=== PATIENT | female | born 1955 | race Caucasian/White ===

== ENCOUNTER 2017-08-04 07:24 | Outpatient (CLI) | payer BC ==
--- NOTE | 2017-08-04 08:08 | RAD ---
LUMBAR SPINE 3 VIEWS: HISTORY: Low back pain radiating to the right leg. FINDINGS: There are degenerative changes in the lumbar spine. No fracture, subluxation, or bony destruction i s identified. IMPRESSION: Lumbar spondylosis. POS: JUAN M
== END 2017-08-04 07:25 | disposition home or self-care (01) ==
LOC: RAD 07:24
PROVIDERS: ATTEND Family Medicine
DX: M47.26 Other spondylosis with radiculopathy, lumbar region (principal)
CPT/HCPCS: 72100

== ENCOUNTER 2017-10-07 07:36 | Outpatient (CLI) | payer BC ==
--- NOTE | 2017-10-07 08:57 | RAD ---
TWO VIEW CHEST: History: COPD. Comparison: 01-21-11 FINDINGS: Mild cardiomegaly with post op sternotomy change. There are linear markings in both mid and lower dariel gs suggesting some chronic parenchymal changes. I cannot exclude superimposed infiltrate, especially on the right, given these new opacities which have occurred since the prior study. Vascular markings within normal range. No evidence of effusion. IMPRESSION: Linear parenchymal markings bilaterally suggesting some chronic stranding and atelectasis, however, a n acute infiltrate cannot be excluded. POS: MIKE
== END 2017-10-07 07:37 | disposition home or self-care (01) ==
LOC: RAD 07:36
PROVIDERS: ATTEND Family Medicine
DX: J44.1 Chronic obstructive pulmonary disease with (acute) exacerbation (principal); J98.11 Atelectasis
CPT/HCPCS: 71020

== ENCOUNTER 2017-11-03 05:51 | Inpatient (IN) | payer BC ==
[2017-11-03] MEDS ORDERED: predniSONE 20 MG TAB ONE (06:19)
[2017-11-03] MEDS ORDERED: Albuterol Sulfate 2.5 mg/0.5 ml Neb ONE ×2 (06:19→06:54)
[2017-11-03] MEDS ORDERED: cefTRIAXone\\ROCEPHIN 1 GM VIAL IM SCH (06:30)
[2017-11-03 07:10] LABS: #Lymphocytes 1.2 thou/uL (1.20-3.40); #Monocytes 1.3 thou/uL (0.11-0.59); #Neutrophils 8.7 thou/uL (1.40-6.50); %Basophils 0.4 % (0.0-1.0); %Eosinophils 0.2 % (0.0-10.0); %Lymphocytes 10.6 % (21.0-51.0); %Monocytes 11.7 % (0.0-10.0); Hematocrit 48.6 % (36.0-47.0); Mean Platelet Volume 8.7 fL (7.4-10.4); Red Blood Cell (RBC) Count 5.19 mill/uL (4.20-5.40); White Blood Cell (WBC) Count 11.2 thou/uL (4.8-10.8)
[2017-11-03] MEDS ORDERED: Dexamethasone 10 MG/ML VIAL ONE (07:23)
[2017-11-03] MEDS ORDERED: Magnesium Sulfate 2 GM/100 ML BAG ONE (07:23)
[2017-11-03 07:27] LABS: Oxyhemoglobin 90.3 % (94.0-97.0); Sodium 140 mmol/L (135-148)
[2017-11-03 07:30] LABS: Lactic Acid - Sepsis 1.8 mmol/L (0.5-2.2)
[2017-11-03 07:35] LABS: Troponin I Less than 0.010 ng/mL (< 0.028)
[2017-11-03 07:38] LABS: ALT (SGPT) 14 U/L (8-55); AST (SGOT) 17 U/L (5-34); Alkaline Phosphatase 84 U/L (40-150); Anion Gap 14 mmol/L (10-20); BUN (Urea Nitrogen) 28 mg/dL (9.8-20.1); Bilirubin, Total 0.4 mg/dL (0.2-1.2); CK (CPK) 83 U/L (29-168); Calc. Creatinine Clearance 0 mL/min (70-130); Calcium 9.3 mg/dL (7.8-10.44); Carbon Dioxide 23 mmol/L (23-31); Chloride 107 mmol/L (98-107); Estimated GFR-MDRD 48; Globulin 2.8 g/dL (2.4-3.5); Lipase 19 U/L (8-78); Protein, Total 6.6 g/dL (6.0-8.3)
[2017-11-03 07:42] LABS: Modified Allen's Test NOT DONE; Vent NO
[2017-11-03 07:43] LABS: Mode 3L NC
[2017-11-03] MEDS ORDERED: Acetaminophen 500 MG TAB ONE (08:05)
[2017-11-03] MEDS ORDERED: Oseltamivir 75 MG CAP PO ONE (08:15)
[2017-11-03] MEDS ORDERED: Azithromycin 500 MG in Sodium Chloride 0.9% 250 ML 250 ML IVPB ONE (08:15)
--- NOTE | 2017-11-03 09:25 | RAD ---
CHEST 1 VIEW: Date: 10/14/17 HISTORY: Cough. COMPARISON: Chest radiograph dated 10/07/17. FINDINGS: Heart size is enlarged. Opacities of the right middle lobe and lingula, similar. No pneumothorax. No large effusion. IMPRESSION: 1. Right middle lobe and lingular linear opacities may reflect scarring. 2. Cardiomegaly. POS: H
[2017-11-03] MEDS ORDERED: FLU VACC QS2017-18 36 mo. & older 0.5 ML SYRINGE IM ONE (10:00)
[2017-11-03] MEDS: Diabetic Tussin 200 MG/10 ML UDCUP PO PRN ×2 (11:42→16:43)
[2017-11-03] MEDS ORDERED: Ondansetron ODT 4 MG TAB PO PRN (13:01)
[2017-11-03] MEDS ORDERED: Mag-Al 1200 mg/1200 mg/30 ML UDCUP PO PRN (13:01)
[2017-11-03] MEDS ORDERED: Calcium Carbonate 500 MG ChewTAB PO PRN (13:01)
[2017-11-03] MEDS ORDERED: Senokot 8.6 MG TAB PO PRN (13:01)
[2017-11-03] MEDS ORDERED: Nitroglycerin 0.4 MG TAB (25 Tab Bottle) PO PRN (13:01)
[2017-11-03] MEDS ORDERED: Acetaminophen 325 MG TAB PO PRN (13:01)
[2017-11-03] MEDS ORDERED: Ondansetron HCl/PF 4 MG/2 ML Vial IVP PRN (13:01)
[2017-11-03] MEDS ORDERED: Chloraseptic Spray 180 ml Bottle PO PRN (13:05)
[2017-11-03] MEDS ORDERED: Loratadine 10 MG TAB PO PRN (13:05)
[2017-11-03] MEDS ORDERED: Cepastat Lozenges 1 LOZ PO PRN (13:05)
[2017-11-03] MEDS ORDERED: hydrALAZINE 20 MG/ML VIAL SLOW IVP PRN (13:05)
[2017-11-03] MEDS ORDERED: cloNIDine 0.1 MG TAB PO PRN (13:05)
[2017-11-03] MEDS ORDERED: cefTRIAXone\\ROCEPHIN 1 GM in Sodium Chloride 0.9% 100 ML IVPB SCH (13:15)
[2017-11-03] MEDS: Sodium Chloride 0.9% 1,000 ML IV SCH (13:37)
[2017-11-03] MEDS: HYDROcodone/Acetaminophen 7.5/325 mg Tablet PO PRN ×2 (13:55→20:10)
--- NOTE | 2017-11-03 13:55 | HP ---
DATE OF ADMISSION: 11/03/2017 PRIMARY CARE PHYSICIAN: Dr. Benson. CHIEF COMPLAINT: Shortness of breath of 3 days duration. HISTORY OF PRESENT ILLNESS: Patient is a 61-year-old female with COPD, presented to the emergency ro om with worsening shortness of breath along with fever over the last 2-3 days. She also had some cou gh, which was productive of small amount of thick phlegm. She also had intermittent fever with chill s. Her coworker recently had influenza. Due to her worsening symptoms, she presented to the emergen cy room. Her last COPD exacerbation was approximately a month ago that was managed as outpatient by her PCP. She has a nebulizer and uses it on an as needed basis. She is a former smoker. In the emergency room, her initial vital signs showed temperature of 99.7 with O2 saturation 87% on r oom air. Heart rate was 119 with blood pressure of 119/65. After O2 supplementation, her O2 saturat ion improved to 95%. She was positive for influenza A. She received Tamiflu with Tylenol, 10 mg Dec adron, magnesium, DuoNebs and azithromycin. She refused ABG. Her lowest O2 saturation was 84% on ro om air. PAST MEDICAL HISTORY: 1. COPD. 2. History of pericarditis. 3. History of ASD repair. 4. Chronic low back pain. 5. Insomnia. 6. History of alcoholism in the past, quit drinking in 1992. 7. Former smoker. PAST SURGICAL HISTORY: 1. Cholecystectomy. 2. Abdominal hysterectomy. 3. Appendectomy. 4. Bladder suspension. 5. Eye surgery. 6. ASD repair. ALLERGIES: Patient is allergic to ERYTHROMYCIN that causes itching, SULFA DRUGS that causes itching, CONTRAST MATERIAL that causes questionable seizures, DOXYCYCLINE, reaction unknown and LEVAQUIN that causes nausea and myalgias. FAMILY HISTORY: Father of lung cancer. SOCIAL HISTORY: Patient is a former smoker, quit in 2016. She is and has 2 kids. No curren t use of alcohol or drug use. REVIEW OF SYSTEMS: The following complete review of systems was negative, unless otherwise mentioned in the HPI or below: CONSTITUTIONAL: Weight loss or gain, ability to conduct usual activities. SKIN: Rash, itching. EYES: Double vision, pain. ENT/MOUTH: Nose bleeding, neck stiffness, pain, tenderness. CARDIOVASCULAR: Palpitations, dyspnea on exertion, orthopnea. RESPIRATORY: Shortness of breath, wheezing, cough, hemoptysis, fever or night sweats. GASTROINTESTINAL: Poor appetite, abdominal pain, heartburn, nausea, vomiting, constipation, or diarr hea. GENITOURINARY: Urgency, frequency, dysuria, nocturia. MUSCULOSKELETAL: Pain, swelling. NEUROLOGIC/PSYCHIATRIC: Anxiety, depression. ALLERGY/IMMUNOLOGIC: Skin rash, bleeding tendency. Weight loss or gain, ability to conduct, orthopnea. CURRENT HOME MEDICATIONS: Prozac 10 mg daily, nebulizer treatment as needed, Lasix 40 mg daily, Topr ol-XL 25 mg daily, Dulera as needed. PHYSICAL EXAMINATION: VITAL SIGNS: As discussed above. GENERAL: A 61-year-old female in mild to moderate respiratory distress, able to complete short phras es. O2 saturation at this time is 96% on 3 liter nasal cannula. HEENT: Head atraumatic, normocephalic. Sclerae are anicteric. Dry mucous membranes. NECK: Supple, no JVD appreciated. No carotid bruit. LUNGS: Showed expiratory wheezing with coarse breath sounds bilaterally. There was scattered rales at bases. Lungs are symmetrical. Trachea midline. HEART: S1, S2 present. Regular rate and rhythm, 2/6 systolic murmur over the mitral area. ABDOMEN: Soft, nontender, bowel sounds present. EXTREMITIES: No edema or calf tenderness. NEUROLOGIC: Grossly nonfocal, moves all 4 extremities. PSYCHIATRY: Alert, awake, oriented x3. SKIN: Warm and dry. LYMPH NODES: No palpable lymph nodes in the neck. PERIPHERAL VASCULAR: Radial pulses palpable bilaterally. MUSCULOSKELETAL: No joint swelling or tenderness. LABORATORY AND X-RAY FINDINGS: 1. ABGs which patient later agreed showed pH of 7.43 with pCO2 33.4, pO2 56.5 with bicarbonate 21.7 on 3 liter nasal cannula. 2. CBC showed WBC 11.2 with hemoglobin 16.1, hematocrit 48.6 and platelet 176. 3. Chemistries showed sodium 139, potassium 4.5, chloride 107, bicarbonate 23, BUN 28, creatinine 1. 1. 4. Troponins were negative. 5. Influenza A was positive. 6. Chest x-ray by my review showed right middle lobe and lingula linear opacities, questionable scar ring versus infiltrate. There was cardiomegaly. EKG by my review showed sinus tachycardia with PVCs and right axis deviation. IMPRESSION: 1. Acute hypoxic respiratory failure secondary to influenza A with suspected influenzae A pneumonia. 2. Chronic obstructive pulmonary disease with chronic obstructive pulmonary disease exacerbation. 3. Obesity with a BMI 30. 4. Chronic kidney disease stage 3 with slight worsening. 5. Dehydration. 6. Former smoker. 7. Chronic low back pain. 8. Hypertension. 9. Depression without any suicidal ideation. PLAN: The patient will be monitored on the medical floor. We will continue nebulizer treatment ever y 4 hourly. Continue Tamiflu. We will continue azithromycin and ceftriaxone that was started in the Emergency Room for possible pneumonia. We will add IV steroids due to chronic obstructive pulmonary disease exacerbation. Repeat labs in a.m. Plan of care was discussed with the patient in detail. She stated understanding. We will resume last ected home medications.
[2017-11-03] MEDS: cefTRIAXone\\ROCEPHIN 1 GM, Syringe 0.4 ML in Sterile Water 9.6 ML SLOW IVP SCH (14:56)
[2017-11-03] MEDS ORDERED: Mometasone/Formoterol 120 PUFF INHALER INH SCH (18:30)
[2017-11-03] MEDS: guaiFENesin ER 600 MG TAB PO SCH (20:10)
[2017-11-03] MEDS: Oseltamivir 75 MG CAP PO SCH (20:10)
[2017-11-03] MEDS: Famotidine 20 MG TAB PO SCH (20:10)
[2017-11-03] MEDS: Docusate 100 MG CAP PO SCH (20:16)
[2017-11-03] MEDS ORDERED: guaiFENesin ER 600 MG TAB PO SCH (21:00)
[2017-11-03] MEDS: Mometasone/Formoterol 120 PUFF INHALER INH SCH (22:04)
[2017-11-04 06:05] LABS: #Lymphocytes 0.6 thou/uL (1.20-3.40); #Monocytes 0.5 thou/uL (0.11-0.59); #Neutrophils 12.4 thou/uL (1.40-6.50); %Basophils 0.1 % (0.0-1.0); %Eosinophils 0.1 % (0.0-10.0); %Lymphocytes 4.1 % (21.0-51.0); %Monocytes 3.8 % (0.0-10.0); Hematocrit 46.1 % (36.0-47.0); Mean Platelet Volume 9.3 fL (7.4-10.4); Red Blood Cell (RBC) Count 4.87 mill/uL (4.20-5.40); White Blood Cell (WBC) Count 13.5 thou/uL (4.8-10.8)
[2017-11-04] MEDS: HYDROcodone/Acetaminophen 7.5/325 mg Tablet PO PRN ×2 (06:11→11:00)
[2017-11-04] MEDS: Sodium Chloride 0.9% 1,000 ML IV SCH (06:14)
[2017-11-04 06:43] LABS: Anion Gap 11 mmol/L (10-20); BUN (Urea Nitrogen) 16 mg/dL (9.8-20.1); BUN/Creatinine Ratio 19.75; Calc. Creatinine Clearance 89 mL/min (70-130); Calcium 8.6 mg/dL (7.8-10.44); Carbon Dioxide 19 mmol/L (23-31); Chloride 112 mmol/L (98-107); Estimated GFR-MDRD 71; Magnesium 2.8 mg/dL (1.6-2.6)
[2017-11-04 06:44] LABS: Phosphorus 1.9 mg/dL (2.3-4.7)
[2017-11-04 08:03] VITALS: TEMP 98.7
[2017-11-04] MEDS ORDERED: Azithromycin 250 MG TAB PO SCH (09:00)
[2017-11-04] MEDS ORDERED: Aspirin 325 mg Enteric Coated Tablet PO SCH (09:00)
[2017-11-04] MEDS ORDERED: FLUoxetine HCl 10 MG CAP PO SCH (09:00)
[2017-11-04] MEDS ORDERED: Saccharomyces boulardii 250 MG CAP PO SCH (09:00)
[2017-11-04] MEDS ORDERED: Enoxaparin Sodium 40 MG/0.4 ML SYRINGE SC SCH (09:00)
[2017-11-04] MEDS ORDERED: Multivit, Therapeutic 1 TAB PO SCH (09:00)
[2017-11-04] MEDS: K-Phos Neutral 250 MG TAB PO SCH ×2 (09:05→12:58)
[2017-11-04] MEDS: Famotidine 20 MG TAB PO SCH (09:05)
[2017-11-04] MEDS: guaiFENesin ER 600 MG TAB PO SCH (09:06)
[2017-11-04] MEDS: Oseltamivir 75 MG CAP PO SCH (09:06)
[2017-11-04] MEDS: Docusate 100 MG CAP PO SCH (09:06)
[2017-11-04] MEDS: Mometasone/Formoterol 120 PUFF INHALER INH SCH (09:12)
[2017-11-04 11:11] VITALS: BP 126/62
--- NOTE | 2017-11-04 13:38 | EKG ---
Test Reason : Blood Pressure : / mmHG Vent. Rate : 113 BPM Atrial Rate : 113 BPM P-R Int : 158 ms QRS Dur : 074 ms QT Int : 328 ms P-R-T Axes : 053 096 021 degrees QTc Int : 449 ms Sinus tachycardia with occasional Premature ventricular complexes Possible Left atrial enlargement Rightward axis Borderline ECG Confirmed by ERICA CURRAN, ROSA ([id number]), scientific editor CORONA ANAYA ([id number]) on 11/04/2017 1:37:51 PM Referred By: Confirmed By:ROSA MALDONADO MD
[2017-11-04] MEDS: cefTRIAXone\\ROCEPHIN 1 GM, Syringe 0.4 ML in Sterile Water 9.6 ML SLOW IVP SCH (14:48)
--- NOTE | 2017-11-04 22:26 | DIS ---
DISCHARGE DATE: 11/04/2017 DISCHARGE DISPOSITION: Home. FOLLOWUP: With primary care physician, Dr. Benson as scheduled. ALLERGIES: Patient is allergic to DOXYCYCLINE, IODINE, LEVAQUIN, and SULFA. Patient was seen on the day of discharge, denies any new complaints. Overall, feels better. She is currently on room air. BRIEF HOSPITAL COURSE: Patient is a 61-year-old female with COPD, presented to the emergency room wi th worsening shortness of breath along with fever of 2 to 3 days' duration. Her workup was consisten t with influenza A with suspected influenzae A pneumonia. She was started on Tamiflu with azithromyc in and nebulizer treatment. Low dose steroid was also added for COPD exacerbation. She has shown go od improvement overnight. Blood cultures have been negative. She is requesting to be discharged. S he was advised to return to the emergency room if she develops any new symptoms. FINAL DIAGNOSES: 1. Acute hypoxic respiratory failure secondary to influenza A with suspected influenzae A pneumonia. 2. Chronic obstructive pulmonary disease with chronic obstructive pulmonary disease exacerbation. 3. Obesity with a BMI 30. 4. Chronic kidney disease stage 3 with slight worsening. Creatinine on discharge is 0.8, on admissi on was 1.1. Former smoker. 5. Chronic low back pain. 6. Hypertension. 7. Depression without any suicidal ideation. LABORATORY FINDINGS: WBC on the day of discharge is 13.5, on admission was 11.2. Plan of care was discussed with the patient in detail. She stated understanding.
== END 2017-11-04 15:13 | disposition home or self-care (01) | DRG 193 ==
LOC: ERS 05:51 → T4-B 08:16
PROVIDERS: ADMIT Internal Medicine; ATTEND Internal Medicine
DX: J10.00 Influenza due to other identified influenza virus with unspecified type of pneumonia (principal); J96.01 Acute respiratory failure with hypoxia; J44.0 Chronic obstructive pulmonary disease with (acute) lower respiratory infection; J44.1 Chronic obstructive pulmonary disease with (acute) exacerbation; N18.3 Chronic kidney disease, stage 3 (moderate); Z88.1 Allergy status to other antibiotic agents; Z88.2 Allergy status to sulfonamides; Z91.048 Other nonmedicinal substance allergy status; E66.9 Obesity, unspecified; Z68.30 Body mass index [BMI] 30.0-30.9, adult; I12.9 Hypertensive chronic kidney disease with stage 1 through stage 4 chronic kidney disease, or unspecified chronic kidney disease; G89.29 Other chronic pain; M54.5 Low back pain; F32.9 Major depressive disorder, single episode, unspecified; Z87.891 Personal history of nicotine dependence; F10.21 Alcohol dependence, in remission; Z90.49 Acquired absence of other specified parts of digestive tract; Z90.710 Acquired absence of both cervix and uterus; Z91.041 Radiographic dye allergy status; E86.0 Dehydration
CPT/HCPCS: 36415; 71010; 80053; 80069; 82550; 82553; 82805; 83605; 83690; 83735; 83880; 84484; 85025; 87040; 93005; 94640; 94760; 96365; 96375; A4216; J0456; J0696; J1100; J1650; J2920; J3475; J7050; J7506; J7611; J7620

== ENCOUNTER 2018-01-24 14:13 | Emergency (ER) | payer BC ==
[2018-01-24 14:45] LABS: #Eosinphils 0.1 thou/uL (0.0-0.7); #Lymphocytes 1.4 thou/uL (1.20-3.40); #Neutrophils 8.2 thou/uL (1.40-6.50); %Basophils 0.2 % (0.0-1.0); %Lymphocytes 13.1 % (21.0-51.0); %Monocytes 9.6 % (0.0-10.0); %Neutrophils 76.1 % (42.0-75.0); Hemoglobin 16.6 g/dL (12.0-16.0); Mean Corpuscular HGB CONC 33.4 g/dL (32.0-36.0); Mean Corpuscular Hemoglobin 30.1 pg (27.0-31.0); Mean Corpuscular Volume 90.2 fl (81.0-99.0); Mean Platelet Volume 8.4 fL (7.4-10.4); Platelet Count 258 thou/uL (130-400); RBC Distribution Width 12.2 % (11.5-14.5); Red Blood Cell (RBC) Count 5.52 mill/uL (4.20-5.40); White Blood Cell (WBC) Count 10.7 thou/uL (4.8-10.8)
[2018-01-24 15:06] LABS: ALT (SGPT) 12 U/L (8-55); AST (SGOT) 13 U/L (5-34); Alkaline Phosphatase 91 U/L (40-150); Anion Gap 12 mmol/L (10-20); BUN (Urea Nitrogen) 13 mg/dL (9.8-20.1); Bilirubin, Total 0.5 mg/dL (0.2-1.2); Calc. Creatinine Clearance 0 mL/min (70-130); Calcium 10.2 mg/dL (7.8-10.44); Carbon Dioxide 23 mmol/L (23-31); Chloride 107 mmol/L (98-107); Estimated GFR-MDRD 66; Globulin 3.3 g/dL (2.4-3.5); Glucose 117 mg/dL (80-115); Potassium 4.1 mmol/L (3.5-5.1); Protein, Total 7.3 g/dL (6.0-8.3); Sodium 138 mmol/L (136-145)
[2018-01-24 15:31] LABS: Bilirubin Negative (Negative); Blood, Urine Negative (Negative); Clarity CLOUDY (Clear); Glucose, Urine (Dipstick) Negative (Negative); Leukocyte Large (Negative); Nitrite Negative (Negative); Protein, Urine (Dipstick) Negative (Neg-Trace); Specific Gravity, Urine 1.019 (1.002-1.036)
[2018-01-24 15:33] LABS: Bacteria/HPF 4+ HPF (None Seen); Hyaline Casts/LPF 4-6 HYALINE CAST LPF (0-3 Hyaline); Squamous Epithelial 0-3 HPF (0-3)
[2018-01-24] MEDS ORDERED: Albuterol Sulfate 2.5 mg/3 ml Neb ONE ×2 (15:51→17:14)
--- NOTE | 2018-01-24 17:01 | RAD ---
CHEST ONE VIEW: 01/24/18 HISTORY: 62-year-old female with history of cough and congestion. Postop midline sternotomy. Cardiomegaly. Bilateral horizontal linear and parenchymal changes in the p erihilar regions which have more of a chronic appearance and appears stable from the prior 11/03/17 s tudy. No confluent pneumonia or overt edema. IMPRESSION: Stable cardiomegaly and horizontal linear and parenchymal changes in the mid lung zone and perihilar regions. No significant new process. POS: JUAN M
== END 2018-01-24 17:32 | disposition home or self-care (01) ==
LOC: ERS 14:13
DX: J40 Bronchitis, not specified as acute or chronic (principal); N39.0 Urinary tract infection, site not specified; J44.9 Chronic obstructive pulmonary disease, unspecified; Z87.891 Personal history of nicotine dependence; Z79.899 Other long term (current) drug therapy
CPT/HCPCS: 36415; 71045; 80053; 81003; 81015; 83605; 85025; 87040; 94640; 96361; 96374; J0696; J7611; J7620

== ENCOUNTER 2018-04-23 19:31 | Inpatient (IN) | payer BC ==
[2018-04-23 20:02] LABS: #Eosinphils 0.1 thou/uL (0.0-0.7); #Lymphocytes 0.9 thou/uL (1.20-3.40); #Monocytes 1.1 thou/uL (0.11-0.59); #Neutrophils 7.8 thou/uL (1.40-6.50); %Basophils 0.3 % (0.0-1.0); %Eosinophils 0.8 % (0.0-10.0); %Lymphocytes 9.3 % (21.0-51.0); %Monocytes 10.7 % (0.0-10.0); %Neutrophils 78.9 % (42.0-75.0); Hemoglobin 16.8 g/dL (12.0-16.0); Mean Corpuscular HGB CONC 34.3 g/dL (32.0-36.0); Mean Corpuscular Hemoglobin 29.9 pg (27.0-31.0); Mean Corpuscular Volume 87.1 fl (81.0-99.0); Mean Platelet Volume 8.5 fL (7.4-10.4); Platelet Count 195 thou/uL (130-400); RBC Distribution Width 12.9 % (11.5-14.5); Red Blood Cell (RBC) Count 5.63 mill/uL (4.20-5.40); White Blood Cell (WBC) Count 9.8 thou/uL (4.8-10.8)
--- NOTE | 2018-04-23 20:21 | RAD ---
PORTABLE CHEST: 04/23/18 INDICATION: Shortness of breath and fever. COMPARISON: 01/24/18. Cardiomegaly with postop sternotomy change. There is vascular congestion. Hazy infiltrate or edema in the left mid lung is more prominent today. No significant effusion. Hilar regions are prominent. IMPRESSION: Cardiomegaly with vascular congestion. Linear atelectasis and hazy infiltrate and/or edema in the lef t mid lung is more prominent today. POS: [facility]
[2018-04-23 20:22] LABS: ALT (SGPT) 12 U/L (8-55); AST (SGOT) 16 U/L (5-34); Alkaline Phosphatase 76 U/L (40-150); Anion Gap 16 mmol/L (10-20); BUN (Urea Nitrogen) 10 mg/dL (9.8-20.1); Bilirubin, Total 0.4 mg/dL (0.2-1.2); CK (CPK) 158 U/L (29-168); Calc. Creatinine Clearance 0 mL/min (70-130); Calcium 9.8 mg/dL (7.8-10.44); Carbon Dioxide 21 mmol/L (23-31); Chloride 105 mmol/L (98-107); Estimated GFR-MDRD 55; Globulin 3.2 g/dL (2.4-3.5); Glucose 113 mg/dL (80-115); Potassium 4.2 mmol/L (3.5-5.1); Protein, Total 7.2 g/dL (6.0-8.3); Sodium 138 mmol/L (136-145)
[2018-04-23 20:26] LABS: CKMB 1.4 ng/mL (0-6.6); Troponin I Less than 0.010 ng/mL (< 0.028)
[2018-04-23 20:46] LABS: Bilirubin Negative (Negative); Blood, Urine Trace (Negative); Clarity CLEAR (Clear); Glucose, Urine (Dipstick) Negative (Negative); Leukocyte Negative (Negative); Nitrite Negative (Negative); Protein, Urine (Dipstick) 30 mg/dL (Neg-Trace); Specific Gravity, Urine 1.016 (1.002-1.036)
[2018-04-23 20:48] LABS: Bacteria/HPF None Seen HPF (None Seen); Hyaline Casts/LPF 0-3 HYALINE CAST LPF (0-3 Hyaline); Pathc Cast-AUWi Flag 0.72 (0-2.49); Squamous Epithelial 0-3 HPF (0-3); WBC/HPF 0-3 HPF (0-3)
[2018-04-23] MEDS ORDERED: Acetaminophen 500 MG TAB ONE (20:56)
[2018-04-23] MEDS ORDERED: cefTRIAXone\\ROCEPHIN 2 GM VIAL ONE (21:52)
[2018-04-23] MEDS ORDERED: Azithromycin 500 MG VIAL ONE (21:52)
[2018-04-23] MEDS ORDERED: methylPREDNISolone Sod Succ/PF 125 MG/2 ML VIAL ONE (22:35)
[2018-04-23] MEDS ORDERED: Water For Inject, Bacteriostat 30 ML ONE (22:36)
[2018-04-23 23:44] LABS: Troponin I Less than 0.010 ng/mL (< 0.028)
[2018-04-23] MEDS ORDERED: Acetaminophen 325 MG TAB PO PRN (23:48)
[2018-04-23] MEDS ORDERED: Sodium Chloride 0.9% 1,000 ML IV SCH (23:48)
[2018-04-23] MEDS ORDERED: Ondansetron ODT 4 MG TAB SL PRN (23:48)
[2018-04-23] MEDS ORDERED: Ondansetron HCl/PF 4 MG/2 ML Vial IVP PRN (23:48)
[2018-04-23] MEDS ORDERED: Albuterol Sulfate 2.5 mg/3 ml Neb NEB PRN (23:49)
[2018-04-24 00:09] VITALS: BMI 29.0
[2018-04-24] MEDS ORDERED: Bisacodyl 5 MG TAB PO PRN (01:30)
[2018-04-24] MEDS ORDERED: Acetaminophen 325 MG TAB PO PRN (01:30)
[2018-04-24] MEDS ORDERED: Melatonin 3 MG TAB PO PRN (01:44)
[2018-04-24] MEDS ORDERED: Melatonin 3 MG TAB PO SCH (01:45)
[2018-04-24 01:50] LABS: #Lymphocytes 0.3 thou/uL (1.20-3.40); #Monocytes 0.3 thou/uL (0.11-0.59); #Neutrophils 8.6 thou/uL (1.40-6.50); %Basophils 0.4 % (0.0-1.0); %Eosinophils 0.1 % (0.0-10.0); %Lymphocytes 2.9 % (21.0-51.0); %Monocytes 3.1 % (0.0-10.0); %Neutrophils 93.5 % (42.0-75.0); Hemoglobin 16.1 g/dL (12.0-16.0); Mean Corpuscular HGB CONC 34.2 g/dL (32.0-36.0); Mean Corpuscular Hemoglobin 29.8 pg (27.0-31.0); Mean Corpuscular Volume 87.1 fl (81.0-99.0); Mean Platelet Volume 8.2 fL (7.4-10.4); Platelet Count 180 thou/uL (130-400); RBC Distribution Width 12.9 % (11.5-14.5); Red Blood Cell (RBC) Count 5.41 mill/uL (4.20-5.40); White Blood Cell (WBC) Count 9.2 thou/uL (4.8-10.8)
[2018-04-24] MEDS: Sodium Chloride 0.9% 1,000 ML IV SCH ×2 (01:52→16:16)
--- NOTE | 2018-04-24 02:07 | HP ---
PRIMARY CARE PROVIDER: Rae Benson M.D. CHIEF COMPLAINT: Shortness of breath. HISTORY OF PRESENT ILLNESS: Ms. Mcpherson is a pleasant 62-year-old lady who was seen at [facility] on 04/24/2018. Three days ago, she developed shortness of breath with exertion, cough that is productive of clear to white sputum and fevers. She reports T-max of 102 degrees Fahrenheit at home. She denies any chest pain. She denies any nausea or vomiting. She saw her primary care provider and was started on cipr ofloxacin. She reports that she did not improve after 2 days of treatment with ciprofloxacin. She w as subsequently started on levofloxacin, but she did not take levofloxacin because it feels like her skin is crawling. She also uses DuoNebs at home with slight relief, not complete relief for which dhruv usually gets with DuoNebs. She came to the emergency room because of ongoing symptoms. She also r eports wheezing. REVIEW OF SYSTEMS: All other systems reviewed and found to be negative. PAST MEDICAL HISTORY: COPD, pericarditis, ASD repair, chronic low back pain, insomnia, alcoholism in the past, tobacco use in the past. PAST SURGICAL HISTORY: Cholecystectomy, abdominal hysterectomy, appendectomy, bladder suspension, ey e surgery and ASD repair. ALLERGIES: ERYTHROMYCIN, SULFA, IV CONTRAST MATERIAL, DOXYCYCLINE and LEVOFLOXACIN. FAMILY HISTORY: Father of lung cancer. SOCIAL HISTORY: She is an ex-smoker. She denies any current tobacco use, alcohol use or recreationa l drug use. CURRENT MEDICATIONS: Furosemide 10 mg daily, fluoxetine 10 mg daily, Dulera 100/5 mcg, unknown dosag e, gabapentin 300 mg 1-2 capsules daily. PHYSICAL EXAMINATION: GENERAL: On examination, Ms. Mcpherson is awake and alert, not in acute distress. VITAL SIGNS: Blood pressure is 106/63, pulse is 118. She is breathing at rate of 24 and saturating 95% on 2 liters of oxygen. Nursing staff report that when she went to the wash room, her oxygen satu rations dropped into the 80s. In the emergency room, her room air oxygen saturation was 86%. T-max in the emergency room was 101.9 degrees Fahrenheit. EYES: No scleral icterus, no conjunctival pallor. ENT: Moist mucosal membranes, no oropharyngeal erythema or exudates. NECK: Supple, nontender, normal range of movement, trachea is midline. RESPIRATORY: Accessory muscles of breathing are active. Chest wall movements are symmetric bilatera lly. She has diffuse expiratory wheeze. CARDIOVASCULAR: S1 and S2 are heard, tachycardic and regular. Peripheral pulses palpable. No carot id bruit, no pericardial rub. ABDOMEN: Soft, nontender, bowel sounds heard, no hepatomegaly, no splenomegaly. NEUROLOGIC: Cranial nerves II-XII intact. Deep tendon reflexes are 2+. MUSCULOSKELETAL: Power is 5/5 in all 4 extremities. SKIN: No rashes or subcutaneous nodules. LYMPHATIC: No cervical lymphadenopathy. PSYCHIATRIC: Normal mood, normal affect, patient is oriented to person, place, and time. LABORATORY DATA: Ms. Mcpherson's labs and investigations were reviewed. I reviewed her electrocardiog taye, which shows sinus tachycardia, no ST changes to suggest an acute coronary syndrome. I also revi ewed her chest x-ray, which shows infiltrates in the left mid lung. She has normal white count, elev ated hemoglobin of 16.8, normal platelet count, normal sodium, normal potassium, normal creatinine, n ormal liver function tests and normal troponin I x2. Urinalysis is positive for protein and trace bl ood. ASSESSMENT AND PLAN: Ms. Mcpherson is a pleasant 62-year-old lady who was seen at [facility] on 04/24/2018. Her problem list includes: 1. Sepsis: Ms. Mcpherson is presenting with sepsis, most likely secondary to pneumonia. She will be admitted to the hospital for intravenous fluids as well as antibiotics. 2. Pneumonia: She will be treated with intravenous ceftriaxone and azithromycin. She also appears to have reactive airways, judging by the diffuse expiratory wheeze. She will receive steroids as wel l as bronchodilators. She will also receive oxygen as needed. 3. Chronic obstructive pulmonary disease exacerbation: Likely triggered by infection. As mentioned , we will treat with intravenous steroids as well as bronchodilators. 4. Acute hypoxic respiratory failure: She is hypoxic with ambulation. We will reassess once she is doing better, to see if she needs home oxygen. Many thanks for allowing me to participate in your patient's care. Please feel free to contact me wi th any questions or concerns. LEVEL OF RISK: High. LEVEL OF COMPLEXITY: High.
[2018-04-24 02:13] LABS: Troponin I Less than 0.010 ng/mL (< 0.028)
[2018-04-24 02:23] LABS: Anion Gap 14 mmol/L (10-20); BUN (Urea Nitrogen) 9 mg/dL (9.8-20.1); Calc. Creatinine Clearance 70 mL/min (70-130); Calcium 8.6 mg/dL (7.8-10.44); Carbon Dioxide 18 mmol/L (23-31); Chloride 114 mmol/L (98-107); Estimated GFR-MDRD 57; Glucose 165 mg/dL (80-115); Potassium 3.9 mmol/L (3.5-5.1); Sodium 142 mmol/L (136-145)
[2018-04-24] MEDS ORDERED: Chloraseptic Spray 180 ml Bottle PO PRN (07:08)
[2018-04-24] MEDS ORDERED: Ondansetron ODT 4 MG TAB PO PRN (07:08)
[2018-04-24] MEDS ORDERED: hydrALAZINE 20 MG/ML VIAL SLOW IVP PRN (07:08)
[2018-04-24] MEDS ORDERED: Sodium Chloride 0.65% Nasal 44 ML BOT EA NARE PRN (07:08)
[2018-04-24] MEDS ORDERED: Mag-Al 1200 mg/1200 mg/30 ML UDCUP PO PRN (07:08)
[2018-04-24] MEDS ORDERED: Loratadine 10 MG TAB PO PRN (07:08)
[2018-04-24] MEDS ORDERED: Calcium Carbonate 500 MG ChewTAB PO PRN (07:08)
[2018-04-24] MEDS ORDERED: Loperamide HCl 2 MG CAP PO PRN (07:08)
[2018-04-24] MEDS ORDERED: Milk Of Magnesia 30 ML UDCUP PO PRN (07:08)
[2018-04-24] MEDS ORDERED: Temazepam 15 MG CAP PO PRN (07:08)
[2018-04-24] MEDS ORDERED: Eucerin (Mineral Oil/Petrolatum,White) 30 gm Jar TOP PRN (07:08)
[2018-04-24] MEDS ORDERED: Ondansetron HCl/PF 4 MG/2 ML Vial IVP PRN (07:08)
[2018-04-24] MEDS ORDERED: Artificial Tears 18 DROP/0.9 ML EA EYE PRN (07:08)
[2018-04-24] MEDS ORDERED: Diabetic Tussin 200 MG/10 ML UDCUP PO PRN (07:08)
[2018-04-24] MEDS ORDERED: Furosemide 40 MG TAB PO PRN (07:10)
[2018-04-24] MEDS ORDERED: Furosemide 20 MG TAB PO PRN (07:17)
[2018-04-24] MEDS ORDERED: Gabapentin 300 MG CAP PO SCH (09:00)
[2018-04-24] MEDS: Gabapentin 300 MG CAP PO SCH ×3 (09:25→20:05)
[2018-04-24] MEDS: guaiFENesin ER 600 MG TAB PO SCH ×2 (09:25→20:05)
[2018-04-24] MEDS: Famotidine 20 MG TAB PO SCH ×2 (09:26→20:05)
[2018-04-24] MEDS: Aspirin 325 mg Enteric Coated Tablet PO SCH (09:26)
[2018-04-24] MEDS: FLUoxetine HCl 10 MG CAP PO SCH (09:26)
[2018-04-24] MEDS: Enoxaparin Sodium 40 MG/0.4 ML SYRINGE SC SCH (09:28)
[2018-04-24] MEDS: Benzonatate 100 MG CAP PO SCH ×3 (09:28→20:05)
--- NOTE | 2018-04-24 11:09 | PDOC.PN ---
- Subjective Encounter Start Date: 04/24/18 Encounter Start Time: 08:15 -: old records requested/rev Patient seen and examined for pneumonia, she feels better. No new complaints. No overnight events - Objective MAR Reviewed: Yes Vital Signs & Weight: Vital Signs (12 hours) Temp Pulse Resp BP BP Pulse Ox 04/24/18 10:46 97.9 F 114 H 22 H 123/64 97 04/24/18 07:41 97.7 F 115 H 30 H 04/24/18 07:22 97.7 F 115 H 30 H 123/68 96 04/24/18 06:28 94 L 04/24/18 06:24 110 H 28 H 94 L 04/24/18 04:00 98.2 F 125 H 24 H 114/67 92 L 04/24/18 01:29 98.2 F 114 H 28 H 95 04/24/18 00:19 98.2 F 114 H 28 H 121/62 96 Weight Weight 169 lb 1 oz Result Diagrams: 04/24/18 01:41 04/24/18 01:41 Radiology Reviewed by me: Yes (chest xray) Phys Exam - Physical Examination Constitutional: NAD HEENT: PERRLA, moist MMs, sclera anicteric Neck: no JVD, supple Respiratory: wheezing present basal rales Cardiovascular: RRR, no significant murmur, no rub Gastrointestinal: soft, non-tender, no distention, positive bowel sounds Musculoskeletal: no edema, pulses present Neurological: non-focal, normal sensation, moves all 4 limbs Lymphatic: no nodes Psychiatric: normal affect, A&O x 3 Skin: no rash, normal turgor Dx/Plan (1) Acute respiratory failure with hypoxia Code(s): J96.01 - ACUTE RESPIRATORY FAILURE WITH HYPOXIA Status: Acute (2) COPD exacerbation Code(s): J44.1 - CHRONIC OBSTRUCTIVE PULMONARY DISEASE W (ACUTE) EXACERBATION Status: Acute (3) Community acquired bacterial pneumonia Code(s): J15.9 - UNSPECIFIED BACTERIAL PNEUMONIA Status: Acute (4) Sepsis Code(s): A41.9 - SEPSIS, UNSPECIFIED ORGANISM Status: Acute Comment: with acute organ dysfunction (5) Anxiety and depression Code(s): F41.9 - ANXIETY DISORDER, UNSPECIFIED; F32.9 - MAJOR DEPRESSIVE DISORDER, SINGLE EPISODE, UNSPECIFIED Status: Chronic - Plan cont current plan of care, continue antibiotics, respiratory therapy * home medication reconciled * continue rocephin and azithromycin * continue current optimum medical care for COPD * medication reviewed as below * symptomatic treatment. * monitor oxygen saturation Review of Systems - Review of Systems Constitutional: negative: fever, chills, sweats, weakness, malaise, other Eyes: negative: Pain, Vision Change, Conjunctivae Inflammation, Eyelid Inflammation, Redness, Other ENT: negative: Ear Pain, Ear Discharge, Nose Pain, Nose Discharge, Nose Congestion, Mouth Pain, Mouth Swelling, Throat Pain, Throat Swelling, Other Respiratory: Cough, Shortness of Breath, SOB with Excertion. negative: Dry, Hemoptysis, Pleuritic Pain, Sputum, Wheezing Cardiovascular: negative: chest pain, palpitations, orthopnea, paroxysmal nocturnal dyspnea, edema, light headedness, other Gastrointestinal: negative: Nausea, Vomiting, Abdominal Pain, Diarrhea, Constipation, Melena, Hematochezia, Other Genitourinary: negative: Dysuria, Frequency, Incontinence, Hematuria, Retention , Other Musculoskeletal: negative: Neck Pain, Shoulder Pain, Arm Pain, Back Pain, Hand Pain, Leg Pain, Foot Pain, Other Skin: negative: Rash, Lesions, Contreras, Bruising, Other - Medications/Allergies Allergies/Adverse Reactions: Allergies Allergy/AdvReac Type Severity Reaction Status Date / Time iodine Allergy Severe Anaphylaxis Verified 04/24/18 00:14 Sulfa (Sulfonamide Allergy Intermediate Rash Verified 04/24/18 00:14 Antibiotics) doxycycline Allergy cramps Verified 04/24/18 00:14 levofloxacin [From Levaquin] Allergy aches, Verified 04/24/18 00:14 itching Medications: Current Medications Acetaminophen (Tylenol) 650 mg PO Q4H PRN PRN Reason: Headache/Fever or Pain Al Hydroxide/Mg Hydroxide (Maalox) 15 ml PO Q4H PRN PRN Reason: Heartburn or Indigestion Albuterol/Ipratropium (Duoneb) 3 ml NEB [id number] PRN PRN Reason: SOB &/or Wheezing Albuterol/Ipratropium (Duoneb) 3 ml NEB [id number] SULAIMAN Last Admin: 04/24/18 06:24 Dose: 3 ml Artificial Tears (Tears Naturale) 0 drop EA EYE PRN PRN PRN Reason: Dry Eyes Aspirin (Ecotrin) 325 mg PO DAILY [facility] Last Admin: 04/24/18 09:26 Dose: 325 mg Benzonatate (Tessalon) 100 mg PO TID [facility] Last Admin: 04/24/18 09:28 Dose: Not Given Bisacodyl (Dulcolax) 10 mg PO DAILYPRN PRN PRN Reason: Constipation Calcium Carbonate (Tums) 1,000 mg PO Q4H PRN PRN Reason: Heartburn or Indigestion Enoxaparin Sodium (Lovenox) 40 mg SC 0900 [facility] Last Admin: 04/24/18 09:28 Dose: Not Given Famotidine (Pepcid) 20 mg PO BID [facility] Last Admin: 04/24/18 09:26 Dose: 20 mg Fluoxetine HCl (Prozac) 10 mg PO DAILY [facility] Last Admin: 04/24/18 09:26 Dose: 10 mg Furosemide (Lasix) 20 mg PO DAILYPRN PRN PRN Reason: DIRECTED Gabapentin (Neurontin) 300 mg PO TID [facility] Last Admin: 04/24/18 09:25 Dose: 300 mg Guaifenesin (Robitussin Sf) 200 mg PO Q4H PRN PRN Reason: Cough Guaifenesin (Mucinex) 600 mg PO Q12HR [facility] Last Admin: 04/24/18 09:25 Dose: 600 mg Hydralazine HCl (Apresoline) 10 mg SLOW IVP Q4H PRN PRN Reason: Systolic BP > 180 Azithromycin 500 mg/ Sodium (Chloride) 250 mls @ 250 mls/hr IVPB Q24HR [facility] Ceftriaxone Sodium 1 gm/ (Sodium Chloride) 100 mls @ 200 mls/hr IVPB Q24HR [facility] Sodium Chloride (Normal Saline 0.9%) 1,000 mls @ 70 mls/hr IV .[id number] [facility] Last Admin: 04/24/18 01:52 Dose: 1,000 mls Loperamide HCl (Imodium) 2 mg PO PRN PRN PRN Reason: Diarrhea/Loose Stools Loratadine (Claritin) 10 mg PO DAILYPRN PRN PRN Reason: Sinus Symptoms Magnesium Hydroxide (Milk Of Magnesium) 30 ml PO DAILYPRN PRN PRN Reason: Constipation Melatonin (Melatonin) 3 mg PO HS PRN PRN Reason: Insomnia Methylprednisolone Sodium Succinate (Solu-Medrol) 40 mg IVP Q6HR [facility] Last Admin: 04/24/18 05:44 Dose: 40 mg Mineral Oil/White Petrolatum (Eucerin Cream) 0 gm TOP BIDPRN PRN PRN Reason: Dry Skin Mometasone Furoate/Formoterol Fumar (Dulera 200 Mcg/5 Mcg Inhaler) 2 puff INH BID-RT SULAIMAN Ondansetron HCl (Zofran Odt) 4 mg PO Q6H PRN PRN Reason: Nausea/Vomiting Ondansetron HCl (Zofran) 4 mg IVP Q6H PRN PRN Reason: Nausea/Vomiting Phenol (Chloraseptic Frontier 180 Ml Bot) 0 ml PO PRN PRN PRN Reason: Sore Throat Sodium Chloride (Flush - Normal Saline) 10 ml IVF Q12HR [facility] Last Admin: 04/24/18 09:39 Dose: Not Given Sodium Chloride (Flush - Normal Saline) 10 ml IVF PRN PRN PRN Reason: Saline Flush Sodium Chloride (Allen Nasal Frontier 0.65%) 0 ml EA NARE QIDPRN PRN PRN Reason: Nasal Congestion Temazepam (Restoril) 15 mg PO HSPRN PRN PRN Reason: Insomnia
[2018-04-24] MEDS: ALPRAZolam 0.25 MG TAB PO PRN ×2 (12:35→21:00)
[2018-04-24] MEDS: Mometasone/Formoterol 120 PUFF INHALER INH SCH (18:51)
[2018-04-24] MEDS: Azithromycin 500 MG in Sodium Chloride 0.9% 250 ML 250 ML IVPB SCH (20:04)
[2018-04-24] MEDS: cefTRIAXone\\ROCEPHIN 1 GM in Sodium Chloride 0.9% 100 ML IVPB SCH (21:01)
[2018-04-25 00:55] LABS: Actual Bicarbonate (HCO3a) 25.5 mEq/L (22-28); CO2 Tension 76.5 mmHg (35.0-45.0); O2 Tension (PaO2) 69.6 mmHg (> 80.0); pH, Arterial 7.14 (7.35-7.45)
[2018-04-25 00:56] LABS: Base Excess (BEa) -5.6 mEq/L (-2.0 to +3.0); Hemoglobin (Hb) 16.3 g/dL (12.0-16.0)
[2018-04-25 00:57] LABS: ALV-art Gradient 547.775 (0-20); Calcium, Ionized 1.2 mmol/L (1.12-1.30); Puncture Site LRA
[2018-04-25 01:33] LABS: ALT (SGPT) 18 U/L (8-55); AST (SGOT) 26 U/L (5-34); Albumin 3.9 g/dL (3.4-4.8); Alkaline Phosphatase 74 U/L (40-150); Anion Gap 13 mmol/L (10-20); BUN (Urea Nitrogen) 13 mg/dL (9.8-20.1); Bilirubin, Total 0.3 mg/dL (0.2-1.2); Calc. Creatinine Clearance 77 mL/min (70-130); Calcium 8.8 mg/dL (7.8-10.44); Carbon Dioxide 24 mmol/L (23-31); Chloride 109 mmol/L (98-107); Estimated GFR-MDRD 64; Glucose 178 mg/dL (80-115); Magnesium 2.4 mg/dL (1.6-2.6); Phosphorus 3.6 mg/dL (2.3-4.7); Potassium 4.8 mmol/L (3.5-5.1); Protein, Total 6.9 g/dL (6.0-8.3); Sodium 141 mmol/L (136-145)
--- NOTE | 2018-04-25 01:44 | PDOC.EVN ---
Event Note - Event Note Event Note: responded to Code green, pt got up from toilet and got acutely SOB, confused and hypoxic. On eval, poor air movememnt, some wheezing, lethargic. ABG obtained with resp acidosis, pH 7.1X. placed on BiPAP and trasnferred to IMCU Pt more awake and alert after BiAPP for 20 minutes, repeat ABG pending. If largely unchanged, will intubate 35 minutes Critical care spent at the Bedside
[2018-04-25 01:54] LABS: Band 22 % (5-11); Hemoglobin 16.1 g/dL (12.0-16.0); Lymphocytes 4 % (21-51); MDiff Complete? YES; Mean Corpuscular HGB CONC 32.6 g/dL (32.0-36.0); Mean Corpuscular Hemoglobin 29.4 pg (27.0-31.0); Mean Corpuscular Volume 90.3 fl (81.0-99.0); Mean Platelet Volume 8.7 fL (7.4-10.4); Metamyelocyte 1 % (0-0); Monocytes 1 % (0-10); Neutrophil 71 % (42-75); PLT Morphology Comment Appears Adequate; Platelet Count 210 thou/uL (130-400); RBC Distribution Width 13.3 % (11.5-14.5); RBC Morphology Normal; Reactive Lymphocytes 1 % (0-10); Red Blood Cell (RBC) Count 5.48 mill/uL (4.20-5.40); White Blood Cell (WBC) Count 15.8 thou/uL (4.8-10.8)
[2018-04-25 02:16] LABS: Base Excess (BEa) -5.8 mEq/L (-2.0 to +3.0); CO2 Tension 65.2 mmHg (35.0-45.0); O2 Tension (PaO2) 66.3 mmHg (> 80.0); pH, Arterial 7.18 (7.35-7.45)
[2018-04-25 02:17] LABS: Calcium, Ionized 1.2 mmol/L (1.12-1.30)
[2018-04-25 02:18] LABS: Puncture Site RRA
[2018-04-25] MEDS ORDERED: Acetaminophen 1,000 MG in Premix Bag 1 BAG IVPB PRN (03:54)
[2018-04-25] MEDS: Sodium Chloride 0.9% 1,000 ML IV SCH ×2 (03:59→20:43)
[2018-04-25] MEDS ORDERED: Furosemide 40 MG/4 ML VIAL SLOW IVP SCH (04:00)
--- NOTE | 2018-04-25 09:25 | RAD ---
PORTABLE CHEST: Date: 04/25/18 HISTORY: Respiratory distress. COMPARISON: 04/13/18 study. FINDINGS: Heart size is enlarged. Postop sternotomy changes are seen. The parenchymal lung changes are fairly s imilar to the previous examination. There is some portion of these changes which are chronic in natur e. Pulmonary arteries are prominent centrally. Interstitial markings are slightly accentuated as comp ared to older exams in 2017. Some element of edema could be present. IMPRESSION: Stable exam as discussed above. POS: JUAN M
[2018-04-25] MEDS: FLUoxetine HCl 10 MG CAP PO SCH (09:52)
[2018-04-25] MEDS: Famotidine 20 MG TAB PO SCH ×2 (09:52→20:42)
[2018-04-25] MEDS: Benzonatate 100 MG CAP PO SCH ×3 (09:52→20:42)
[2018-04-25] MEDS: Aspirin 325 mg Enteric Coated Tablet PO SCH (09:52)
[2018-04-25] MEDS: Gabapentin 300 MG CAP PO SCH ×3 (09:52→20:42)
[2018-04-25] MEDS: guaiFENesin ER 600 MG TAB PO SCH ×2 (09:52→20:42)
[2018-04-25] MEDS: Enoxaparin Sodium 40 MG/0.4 ML SYRINGE SC SCH (09:53)
[2018-04-25] MEDS: Mometasone/Formoterol 120 PUFF INHALER INH SCH ×2 (10:46→18:30)
--- NOTE | 2018-04-25 12:18 | PDOC.PN ---
- Subjective Encounter Start Date: 04/25/18 Encounter Start Time: 08:50 Subjective: is on bipap, awake, feels better now - Objective Resuscitation Status: Resuscitation Status FULL:Full Resuscitation MAR Reviewed: Yes Vital Signs & Weight: Vital Signs (12 hours) Temp Pulse Pulse Pulse Pulse Pulse Pulse 04/25/18 11:38 97.5 F L 113 H 04/25/18 10:46 104 H 04/25/18 09:52 117 H 04/25/18 07:33 98.8 F 104 H 04/25/18 05:45 99.5 F 123 H 04/25/18 03:56 102.8 F H 139 H 04/25/18 01:31 99.8 F H 140 H 04/25/18 01:30 140 H 04/25/18 01:06 99.8 F H 143 H 04/25/18 00:40 147 H 148 H 143 H 150 H 140 H 04/25/18 00:30 98.2 F 140 H 04/25/18 00:28 140 H Pulse Resp Resp Resp Resp Resp Resp 04/25/18 11:38 24 H 04/25/18 10:46 16 04/25/18 09:52 24 H 04/25/18 07:33 22 H 04/25/18 05:45 22 H 04/25/18 03:56 24 H 04/25/18 01:31 35 H 04/25/18 01:30 04/25/18 01:06 35 H 04/25/18 00:40 144 H 24 H 28 H 24 H 28 H 24 H 04/25/18 00:30 24 H 04/25/18 00:28 24 H Resp BP BP BP BP BP BP 04/25/18 11:38 108/64 04/25/18 10:46 04/25/18 09:52 04/25/18 07:33 100/65 04/25/18 05:45 04/25/18 03:56 132/69 04/25/18 01:31 04/25/18 01:30 04/25/18 01:06 131/100 H 04/25/18 00:40 24 H 171/85 H 163/83 H 131/110 H 144/93 H 174/90 H 04/25/18 00:30 04/25/18 00:28 BP Pulse Ox Pulse Ox Pulse Ox Pulse Ox Pulse Ox Pulse Ox 04/25/18 11:38 95 04/25/18 10:46 04/25/18 09:52 04/25/18 07:33 92 L 04/25/18 05:45 112/64 90 L 04/25/18 03:56 93 L 04/25/18 01:31 99 04/25/18 01:30 04/25/18 01:06 99 04/25/18 00:40 85 L 93 L 94 L 98 93 L 04/25/18 00:30 148/84 H 84 L 04/25/18 00:28 93 L Pulse Ox 04/25/18 11:38 04/25/18 10:46 04/25/18 09:52 04/25/18 07:33 04/25/18 05:45 04/25/18 03:56 04/25/18 01:31 04/25/18 01:30 04/25/18 01:06 04/25/18 00:40 92 L 04/25/18 00:30 04/25/18 00:28 Weight Weight 169 lb 1 oz I&O: 04/24/18 04/25/18 04/26/18 06:59 06:59 06:59 Intake Total 1860 Balance 1860 Result Diagrams: 04/25/18 01:03 04/25/18 01:03 Phys Exam - Physical Examination HEENT: PERRLA, moist MMs Neck: no JVD, supple Respiratory: no wheezing, no rales rhonchi+ Cardiovascular: RRR, no significant murmur Gastrointestinal: soft, non-tender, positive bowel sounds Musculoskeletal: no edema, pulses present Neurological: non-focal, moves all 4 limbs Psychiatric: normal affect, A&O x 3 Dx/Plan (1) Acute respiratory failure with hypoxia Code(s): J96.01 - ACUTE RESPIRATORY FAILURE WITH HYPOXIA Status: Acute (2) COPD exacerbation Code(s): J44.1 - CHRONIC OBSTRUCTIVE PULMONARY DISEASE W (ACUTE) EXACERBATION Status: Acute (3) Community acquired bacterial pneumonia Code(s): J15.9 - UNSPECIFIED BACTERIAL PNEUMONIA Status: Acute (4) Anxiety and depression Code(s): F41.9 - ANXIETY DISORDER, UNSPECIFIED; F32.9 - MAJOR DEPRESSIVE DISORDER, SINGLE EPISODE, UNSPECIFIED Status: Chronic - Plan is on steroids, nebs, bipap -: ceftriaxone, zithromax -: gentle iv hydration -: to mobilize as tolerated, oral liq intake until she is on bipap * . Review of Systems - Medications/Allergies Allergies/Adverse Reactions: Allergies Allergy/AdvReac Type Severity Reaction Status Date / Time iodine Allergy Severe Anaphylaxis Verified 04/24/18 00:14 Sulfa (Sulfonamide Allergy Intermediate Rash Verified 04/24/18 00:14 Antibiotics) doxycycline Allergy cramps Verified 04/24/18 00:14 levofloxacin [From Levaquin] Allergy aches, Verified 04/24/18 00:14 itching Medications: Current Medications Acetaminophen (Tylenol) 650 mg PO Q4H PRN PRN Reason: Headache/Fever or Pain Al Hydroxide/Mg Hydroxide (Maalox) 15 ml PO Q4H PRN PRN Reason: Heartburn or Indigestion Albuterol/Ipratropium (Duoneb) 3 ml NEB [id number] [facility] Alprazolam (Xanax) 0.25 mg PO TIDPRN PRN PRN Reason: Anxiety Last Admin: 04/24/18 21:00 Dose: 0.25 mg Artificial Tears (Tears Naturale) 0 drop EA EYE PRN PRN PRN Reason: Dry Eyes Aspirin (Ecotrin) 325 mg PO DAILY [facility] Last Admin: 04/25/18 09:52 Dose: 325 mg Benzonatate (Tessalon) 100 mg PO TID [facility] Last Admin: 04/25/18 09:52 Dose: 100 mg Bisacodyl (Dulcolax) 10 mg PO DAILYPRN PRN PRN Reason: Constipation Calcium Carbonate (Tums) 1,000 mg PO Q4H PRN PRN Reason: Heartburn or Indigestion Enoxaparin Sodium (Lovenox) 40 mg SC 0900 [facility] Last Admin: 04/25/18 09:53 Dose: 40 mg Famotidine (Pepcid) 20 mg PO BID [facility] Last Admin: 04/25/18 09:52 Dose: 20 mg Fluoxetine HCl (Prozac) 10 mg PO DAILY [facility] Last Admin: 04/25/18 09:52 Dose: 10 mg Furosemide (Lasix) 20 mg PO DAILYPRN PRN PRN Reason: DIRECTED Gabapentin (Neurontin) 300 mg PO TID [facility] Last Admin: 04/25/18 09:52 Dose: 300 mg Guaifenesin (Robitussin Sf) 200 mg PO Q4H PRN PRN Reason: Cough Guaifenesin (Mucinex) 600 mg PO Q12HR [facility] Last Admin: 04/25/18 09:52 Dose: 600 mg Hydralazine HCl (Apresoline) 10 mg SLOW IVP Q4H PRN PRN Reason: Systolic BP > 180 Azithromycin 500 mg/ Sodium (Chloride) 250 mls @ 250 mls/hr IVPB Q24HR [facility] Last Admin: 04/24/18 20:04 Dose: 250 mls Ceftriaxone Sodium 1 gm/ (Sodium Chloride) 100 mls @ 200 mls/hr IVPB Q24HR [facility] Last Admin: 04/24/18 21:01 Dose: 100 mls Sodium Chloride (Normal Saline 0.9%) 1,000 mls @ 70 mls/hr IV .[id number] [facility] Last Admin: 04/25/18 03:59 Dose: 1,000 mls Acetaminophen 1,000 mg/ Device 100 mls @ 400 mls/hr IVPB Q6H PRN PRN Reason: PAIN/FEVER Stop: 04/26/18 03:55 Last Admin: 04/25/18 04:00 Dose: 100 mls Loperamide HCl (Imodium) 2 mg PO PRN PRN PRN Reason: Diarrhea/Loose Stools Loratadine (Claritin) 10 mg PO DAILYPRN PRN PRN Reason: Sinus Symptoms Magnesium Hydroxide (Milk Of Magnesium) 30 ml PO DAILYPRN PRN PRN Reason: Constipation Melatonin (Melatonin) 3 mg PO HS PRN PRN Reason: Insomnia Methylprednisolone Sodium Succinate (Solu-Medrol) 40 mg IVP Q6HR [facility] Last Admin: 04/25/18 11:35 Dose: 40 mg Mineral Oil/White Petrolatum (Eucerin Cream) 0 gm TOP BIDPRN PRN PRN Reason: Dry Skin Mometasone Furoate/Formoterol Fumar (Dulera 200 Mcg/5 Mcg Inhaler) 2 puff INH BID-RT [facility] Last Admin: 04/25/18 10:46 Dose: 2 puff Montelukast Sodium (Singulair) 10 mg PO QPM [facility] Ondansetron HCl (Zofran Odt) 4 mg PO Q6H PRN PRN Reason: Nausea/Vomiting Ondansetron HCl (Zofran) 4 mg IVP Q6H PRN PRN Reason: Nausea/Vomiting Phenol (Chloraseptic [place] 180 Ml Bot) 0 ml PO PRN PRN PRN Reason: Sore Throat Sodium Chloride (Flush - Normal Saline) 10 ml IVF Q12HR [facility] Last Admin: 04/25/18 09:53 Dose: 10 ml Sodium Chloride (Flush - Normal Saline) 10 ml IVF PRN PRN PRN Reason: Saline Flush Last Admin: 04/25/18 11:35 Dose: 10 ml Sodium Chloride ([place] Nasal [place] 0.65%) 0 ml EA NARE QIDPRN PRN PRN Reason: Nasal Congestion Temazepam (Restoril) 15 mg PO HSPRN PRN PRN Reason: Insomnia
--- NOTE | 2018-04-25 13:35 | CON ---
DATE OF CONSULTATION: 04/25/2018 This encompass 70 minutes of the time, at that time greater than 50% was spent with the patient and/o r in the patient's unit in the hospitalist. REASON FOR CONSULTATION: Acute respiratory failure. HISTORY OF PRESENT ILLNESS: Ms. Mcpherson is a very pleasant 62-year-old female who was hosp italized at this facility on 04/24/2018 with increasing shortness of breath and fever. She was havin g severe wheezing. She was initially placed in the floor. She became anxious yesterday, had to get 2 doses of Xanax, developed mental status changes and lethargy. Last night was noted to have hyperca pnic respiratory failure and was brought to the [facility] [place] she was placed on BiPAP and has subsequentl y improved overnight. PAST MEDICAL HISTORY: 1. Severe COPD. 2. Pericarditis. 3. ASD with repair. 4. Low back pain. 5. Insomnia. 6. Alcoholism in the past. PAST SURGICAL HISTORY: 1. Cholecystectomy. 2. Abdominal hysterectomy. 3. Appendectomy. 4. Bladder suspension. 5. Eye surgery. 6. ASD repair. ALLERGIES: LEVAQUIN causes her to break out all over. She is also allergic to ERYTHROMYCIN, SULFA, IV CONTRAST, DOXYCYCLINE. FAMILY MEDICAL HISTORY: Remarkable for Lung cancer. SOCIAL HISTORY: Quit smoking 2 years ago. Does not use any illicit drugs. 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 MEDICATIONS PRIOR TO ADMISSION: Gabapentin, furosemide, fluoxetine, Dulera. REVIEW OF SYSTEMS: Twelve point review of system otherwise negative. PHYSICAL EXAMINATION: VITAL SIGNS: Temperature 98.8 with a T-max of 102.8 earlier this morning, pulse 104, respirations 16 , O2 sat 92%. GENERAL: She is awake, conversant. She is required BiPAP on and off overnight. HEENT: Unremarkable. NECK: Without adenopathy or JVD. LUNGS: Diffuse wheezing bilaterally with generalized poor air movement. No accessory muscle use. CARDIAC: S1, S2 regular, without murmur. ABDOMEN: Soft, nontender, nondistended. EXTREMITIES: No clubbing, cyanosis, or edema. NEUROLOGIC: Grossly intact throughout. LABORATORY DATA: White blood cell count 15.8, hematocrit 49.5, platelet count 210, pH 7.18, pCO2 of 65, pO2 of 66 that was on BiPAP. Sodium 141, potassium 4.8, chloride 109, CO2 of 24, BUN 30, creatin ine 0.8, glucose 178. Chest x-ray shows chronic interstitial changes without acute mass, effusion or infiltrate. ASSESSMENT: 1. Chronic obstructive pulmonary disease with exacerbation. 2. Acute hypercapnic and hypoxic respiratory failure. 3. Febrile illness, likely related to chronic obstructive pulmonary disease exacerbation. PLAN: 1. Agree with continuation of broad spectrum IV antibiotics to include azithromycin and ceftriaxone. 2. IV steroids. 3. Aggressive nebulization treatments with nebs at least every 4 hours. 4. Restart Dulera if it has not already been done. 5. Keep in IMCU and continue use of BiPAP intermittently as needed.
[2018-04-25] MEDS: Montelukast Sodium 10 mg Tablet PO SCH (20:42)
[2018-04-25] MEDS: Azithromycin 500 MG in Sodium Chloride 0.9% 250 ML 250 ML IVPB SCH (20:42)
[2018-04-25] MEDS: cefTRIAXone\\ROCEPHIN 1 GM in Sodium Chloride 0.9% 100 ML IVPB SCH (22:45)
[2018-04-26] MEDS: Mometasone/Formoterol 120 PUFF INHALER INH SCH ×2 (08:24→18:38)
[2018-04-26] MEDS: FLUoxetine HCl 10 MG CAP PO SCH (08:29)
[2018-04-26] MEDS: Gabapentin 300 MG CAP PO SCH ×3 (08:29→21:23)
[2018-04-26] MEDS: Aspirin 325 mg Enteric Coated Tablet PO SCH (08:29)
[2018-04-26] MEDS: guaiFENesin ER 600 MG TAB PO SCH ×2 (08:29→21:23)
[2018-04-26] MEDS: Famotidine 20 MG TAB PO SCH ×2 (08:29→21:23)
[2018-04-26] MEDS: Enoxaparin Sodium 40 MG/0.4 ML SYRINGE SC SCH (08:30)
[2018-04-26] MEDS: Benzonatate 100 MG CAP PO SCH ×3 (08:40→21:22)
--- NOTE | 2018-04-26 10:40 | PDOC.PN ---
- Subjective Encounter Start Date: 04/26/18 Encounter Start Time: 10:15 Subjective: is sitting in chair -: does not recall yesterday's events -: says her breathing is better this am - Objective Resuscitation Status: Resuscitation Status FULL:Full Resuscitation MAR Reviewed: Yes Vital Signs & Weight: Vital Signs (12 hours) Temp Pulse Resp BP Pulse Ox 04/26/18 08:22 105 H 20 92 L 04/26/18 07:40 98.1 F 94 20 99/57 L 97 04/26/18 03:54 97.5 F L 90 32 H 126/64 95 04/26/18 03:45 90 96 04/26/18 02:23 87 18 100 04/25/18 23:58 97.4 F L 94 20 98/56 L 97 Weight Weight 172 lb 4.026 oz I&O: 04/25/18 04/26/18 04/27/18 06:59 06:59 06:59 Intake Total 1860 3260 Output Total 800 Balance 1860 2460 Result Diagrams: 04/25/18 01:03 04/25/18 01:03 Phys Exam - Physical Examination HEENT: PERRLA, moist MMs Neck: no JVD, supple Respiratory: no rales, wheezing present Cardiovascular: RRR, no significant murmur Gastrointestinal: soft, non-tender, no distention, positive bowel sounds Musculoskeletal: no edema, pulses present Neurological: non-focal, moves all 4 limbs Dx/Plan (1) Acute respiratory failure with hypoxia Code(s): J96.01 - ACUTE RESPIRATORY FAILURE WITH HYPOXIA Status: Acute Comment: resolving (2) COPD exacerbation Code(s): J44.1 - CHRONIC OBSTRUCTIVE PULMONARY DISEASE W (ACUTE) EXACERBATION Status: Acute (3) Community acquired bacterial pneumonia Code(s): J15.9 - UNSPECIFIED BACTERIAL PNEUMONIA Status: Acute (4) Anxiety and depression Code(s): F41.9 - ANXIETY DISORDER, UNSPECIFIED; F32.9 - MAJOR DEPRESSIVE DISORDER, SINGLE EPISODE, UNSPECIFIED Status: Chronic - Plan on ceftriaxone, zithromax -: iv steroids, nebs, bipap prn -: is slowly recovering, to ambulate as tolerated -: may dc iv fluids if tolerating oral solid diet -: will need rehab likely if she didnt amb much * . Review of Systems - Medications/Allergies Allergies/Adverse Reactions: Allergies Allergy/AdvReac Type Severity Reaction Status Date / Time iodine Allergy Severe Anaphylaxis Verified 04/24/18 00:14 Sulfa (Sulfonamide Allergy Intermediate Rash Verified 04/24/18 00:14 Antibiotics) doxycycline Allergy cramps Verified 04/24/18 00:14 levofloxacin [From Levaquin] Allergy aches, Verified 04/24/18 00:14 itching Medications: Current Medications Acetaminophen (Tylenol) 650 mg PO Q4H PRN PRN Reason: Headache/Fever or Pain Al Hydroxide/Mg Hydroxide (Maalox) 15 ml PO Q4H PRN PRN Reason: Heartburn or Indigestion Albuterol/Ipratropium (Duoneb) 3 ml NEB [id number] [facility] Last Admin: 04/26/18 08:22 Dose: 3 ml Alprazolam (Xanax) 0.25 mg PO TIDPRN PRN PRN Reason: Anxiety Last Admin: 04/24/18 21:00 Dose: 0.25 mg Artificial Tears (Tears Naturale) 0 drop EA EYE PRN PRN PRN Reason: Dry Eyes Aspirin (Ecotrin) 325 mg PO DAILY [facility] Last Admin: 04/26/18 08:29 Dose: 325 mg Benzonatate (Tessalon) 100 mg PO TID [facility] Last Admin: 04/26/18 08:40 Dose: Not Given Bisacodyl (Dulcolax) 10 mg PO DAILYPRN PRN PRN Reason: Constipation Calcium Carbonate (Tums) 1,000 mg PO Q4H PRN PRN Reason: Heartburn or Indigestion Enoxaparin Sodium (Lovenox) 40 mg SC 0900 [facility] Last Admin: 04/26/18 08:30 Dose: 40 mg Famotidine (Pepcid) 20 mg PO BID [facility] Last Admin: 04/26/18 08:29 Dose: 20 mg Fluoxetine HCl (Prozac) 10 mg PO DAILY [facility] Last Admin: 04/26/18 08:29 Dose: 10 mg Furosemide (Lasix) 20 mg PO DAILYPRN PRN PRN Reason: DIRECTED Gabapentin (Neurontin) 300 mg PO TID [facility] Last Admin: 04/26/18 08:29 Dose: 300 mg Guaifenesin (Robitussin Sf) 200 mg PO Q4H PRN PRN Reason: Cough Guaifenesin (Mucinex) 600 mg PO Q12HR [facility] Last Admin: 04/26/18 08:29 Dose: 600 mg Hydralazine HCl (Apresoline) 10 mg SLOW IVP Q4H PRN PRN Reason: Systolic BP > 180 Azithromycin 500 mg/ Sodium (Chloride) 250 mls @ 250 mls/hr IVPB Q24HR [facility] Last Admin: 04/25/18 20:42 Dose: 250 mls Ceftriaxone Sodium 1 gm/ (Sodium Chloride) 100 mls @ 200 mls/hr IVPB Q24HR [facility] Last Admin: 04/25/18 22:45 Dose: 100 mls Sodium Chloride (Normal Saline 0.9%) 1,000 mls @ 70 mls/hr IV .[id number] [facility] Last Admin: 04/25/18 20:43 Dose: 1,000 mls Loperamide HCl (Imodium) 2 mg PO PRN PRN PRN Reason: Diarrhea/Loose Stools Loratadine (Claritin) 10 mg PO DAILYPRN PRN PRN Reason: Sinus Symptoms Magnesium Hydroxide (Milk Of Magnesium) 30 ml PO DAILYPRN PRN PRN Reason: Constipation Melatonin (Melatonin) 3 mg PO HS PRN PRN Reason: Insomnia Methylprednisolone Sodium Succinate (Solu-Medrol) 40 mg IVP Q6HR [facility] Last Admin: 04/26/18 05:56 Dose: 40 mg Mineral Oil/White Petrolatum (Eucerin Cream) 0 gm TOP BIDPRN PRN PRN Reason: Dry Skin Mometasone Furoate/Formoterol Fumar (Dulera 200 Mcg/5 Mcg Inhaler) 2 puff INH BID-RT [facility] Last Admin: 04/26/18 08:24 Dose: 2 puff Montelukast Sodium (Singulair) 10 mg PO QPM [facility] Last Admin: 04/25/18 20:42 Dose: 10 mg Ondansetron HCl (Zofran Odt) 4 mg PO Q6H PRN PRN Reason: Nausea/Vomiting Ondansetron HCl (Zofran) 4 mg IVP Q6H PRN PRN Reason: Nausea/Vomiting Phenol (Chloraseptic [place] 180 Ml Bot) 0 ml PO PRN PRN PRN Reason: Sore Throat Sodium Chloride (Flush - Normal Saline) 10 ml IVF Q12HR [facility] Last Admin: 04/26/18 08:30 Dose: 10 ml Sodium Chloride (Flush - Normal Saline) 10 ml IVF PRN PRN PRN Reason: Saline Flush Last Admin: 04/25/18 18:22 Dose: 10 ml Sodium Chloride ([place] Nasal [place] 0.65%) 0 ml EA NARE QIDPRN PRN PRN Reason: Nasal Congestion Temazepam (Restoril) 15 mg PO HSPRN PRN PRN Reason: Insomnia
[2018-04-26] MEDS: Sodium Chloride 0.9% 1,000 ML IV SCH (11:45)
--- NOTE | 2018-04-26 16:51 | PRG ---
DATE OF SERVICE: 04/26/2018 SUBJECTIVE: She is in better spirits. She continues to use BiPAP intermittently. OBJECTIVE: VITAL SIGNS: Temperature 98.7, pulse 107, respirations 20, O2 sat 94% on 5 liters. HEENT: Unremarkable. NECK: No JVD. LUNGS: She has intermittent bilateral wheezing. CARDIAC: S1 and S2 regular. ABDOMEN: Soft. EXTREMITIES: No edema. LABORATORY DATA: Cultures show no growth to date. No new labs were obtained today. ASSESSMENT: Chronic obstructive pulmonary disease with exacerbation. PLAN: Continue steroids, nebulization treatments and antibiotics. I will go ahead and stop her IV f luids. Wean off BiPAP as tolerated.
[2018-04-26] MEDS: Azithromycin 500 MG in Sodium Chloride 0.9% 250 ML 250 ML IVPB SCH (21:21)
[2018-04-26] MEDS: Montelukast Sodium 10 mg Tablet PO SCH (21:23)
[2018-04-26] MEDS: cefTRIAXone\\ROCEPHIN 1 GM in Sodium Chloride 0.9% 100 ML IVPB SCH (23:16)
[2018-04-27 07:48] LABS: #Lymphocytes 0.6 thou/uL (1.20-3.40); #Monocytes 0.3 thou/uL (0.11-0.59); #Neutrophils 8.7 thou/uL (1.40-6.50); %Lymphocytes 6.3 % (21.0-51.0); %Monocytes 3.1 % (0.0-10.0); %Neutrophils 90.6 % (42.0-75.0); Hemoglobin 15.8 g/dL (12.0-16.0); Mean Corpuscular HGB CONC 33.8 g/dL (32.0-36.0); Mean Corpuscular Hemoglobin 29.8 pg (27.0-31.0); Mean Corpuscular Volume 88.2 fl (81.0-99.0); Mean Platelet Volume 8.3 fL (7.4-10.4); Platelet Count 199 thou/uL (130-400); RBC Distribution Width 12.8 % (11.5-14.5); Red Blood Cell (RBC) Count 5.28 mill/uL (4.20-5.40); White Blood Cell (WBC) Count 9.6 thou/uL (4.8-10.8)
[2018-04-27] MEDS: Mometasone/Formoterol 120 PUFF INHALER INH SCH ×2 (08:00→18:38)
[2018-04-27 08:35] LABS: Anion Gap 11 mmol/L (10-20); BUN (Urea Nitrogen) 21 mg/dL (9.8-20.1); Calc. Creatinine Clearance 93 mL/min (70-130); Calcium 8.8 mg/dL (7.8-10.44); Carbon Dioxide 31 mmol/L (23-31); Chloride 107 mmol/L (98-107); Estimated GFR-MDRD 75; Glucose 158 mg/dL (80-115); Potassium 3.8 mmol/L (3.5-5.1); Sodium 145 mmol/L (136-145)
[2018-04-27] MEDS: guaiFENesin ER 600 MG TAB PO SCH ×2 (08:47→21:39)
[2018-04-27] MEDS: Aspirin 325 mg Enteric Coated Tablet PO SCH (08:47)
[2018-04-27] MEDS: Famotidine 20 MG TAB PO SCH ×2 (08:47→21:38)
[2018-04-27] MEDS: Benzonatate 100 MG CAP PO SCH ×3 (08:47→21:40)
[2018-04-27] MEDS: FLUoxetine HCl 10 MG CAP PO SCH (08:47)
[2018-04-27] MEDS: Gabapentin 300 MG CAP PO SCH ×3 (08:47→21:39)
[2018-04-27] MEDS: Enoxaparin Sodium 40 MG/0.4 ML SYRINGE SC SCH (08:47)
--- NOTE | 2018-04-27 08:58 | PRG ---
DATE OF SERVICE: 04/27/2018 She is breathing better. She wants to try off the BiPAP all day. PHYSICAL EXAMINATION: VITAL SIGNS: Temperature 97.8, pulse 89, respirations 20, O2 sat 95% on 2 liters. HEENT: Unremarkable. NECK: No JVD. LUNGS: She has improved air movement bilaterally with less wheezing. CARDIAC: S1 and S2 regular. ABDOMEN: Soft. EXTREMITIES: No edema. LABORATORY DATA: White blood cell count 9.6, hematocrit 46, platelet count 199. Sodium 145, potassi um 3.8, BUN 21, creatinine 0.7, glucose 158. ASSESSMENT: 1. Chronic obstructive pulmonary disease with exacerbation. 2. Acute hypercapnic/hypoxic respiratory failure. PLAN: 1. Discontinue the BiPAP. 2. Continue steroids, antibiotics, nebulization therapy. 3. If she is doing okay without the BiPAP she can probably be transferred to the floor later this af ternoon.
--- NOTE | 2018-04-27 10:42 | PDOC.PN ---
- Subjective Encounter Start Date: 04/27/18 Encounter Start Time: 09:00 Subjective: breathing better, says she is amb to restroom with oxygen now -: no chest pain or palp - Objective Resuscitation Status: Resuscitation Status FULL:Full Resuscitation MAR Reviewed: Yes Vital Signs & Weight: Vital Signs (12 hours) Temp Pulse Resp BP Pulse Ox 04/27/18 10:36 106 H 21 H 98 04/27/18 08:01 95 04/27/18 08:00 97.8 F 89 20 96 04/27/18 07:58 89 20 95 04/27/18 07:39 97.8 F 90 24 H 131/69 96 04/27/18 04:00 97.0 F L 90 19 110/67 99 04/27/18 02:02 100 04/27/18 01:58 86 04/27/18 01:57 86 19 100 04/26/18 23:55 97.2 F L 93 20 112/62 100 Weight Weight 175 lb 1.883 oz I&O: 04/26/18 04/27/18 04/28/18 06:59 06:59 06:59 Intake Total 3260 1890 Output Total 800 1700 Balance 2460 190 Result Diagrams: 04/27/18 07:40 04/27/18 07:40 Phys Exam - Physical Examination HEENT: PERRLA, moist MMs Neck: no JVD, supple Respiratory: no wheezing, no rales rhonchi+ Cardiovascular: RRR, no significant murmur Gastrointestinal: soft, non-tender, positive bowel sounds Musculoskeletal: no edema, pulses present Neurological: non-focal, moves all 4 limbs Psychiatric: normal affect, A&O x 3 Dx/Plan (1) Acute respiratory failure with hypoxia Code(s): J96.01 - ACUTE RESPIRATORY FAILURE WITH HYPOXIA Status: Acute Comment: resolving (2) COPD exacerbation Code(s): J44.1 - CHRONIC OBSTRUCTIVE PULMONARY DISEASE W (ACUTE) EXACERBATION Status: Acute (3) Community acquired bacterial pneumonia Code(s): J15.9 - UNSPECIFIED BACTERIAL PNEUMONIA Status: Acute (4) Anxiety and depression Code(s): F41.9 - ANXIETY DISORDER, UNSPECIFIED; F32.9 - MAJOR DEPRESSIVE DISORDER, SINGLE EPISODE, UNSPECIFIED Status: Chronic - Plan is on ceftr and zithromax -: duonebs, solumedrol 20mg iv q8h -: off and on bipap -: is clinically getting better -: to amb with PT as tolerated * . Review of Systems - Medications/Allergies Allergies/Adverse Reactions: Allergies Allergy/AdvReac Type Severity Reaction Status Date / Time iodine Allergy Severe Anaphylaxis Verified 04/24/18 00:14 Sulfa (Sulfonamide Allergy Intermediate Rash Verified 04/24/18 00:14 Antibiotics) doxycycline Allergy cramps Verified 04/24/18 00:14 levofloxacin [From Levaquin] Allergy aches, Verified 04/24/18 00:14 itching Medications: Current Medications Acetaminophen (Tylenol) 650 mg PO Q4H PRN PRN Reason: Headache/Fever or Pain Al Hydroxide/Mg Hydroxide (Maalox) 15 ml PO Q4H PRN PRN Reason: Heartburn or Indigestion Albuterol/Ipratropium (Duoneb) 3 ml NEB [id number] [facility] Last Admin: 04/27/18 10:36 Dose: 3 ml Alprazolam (Xanax) 0.25 mg PO TIDPRN PRN PRN Reason: Anxiety Last Admin: 04/24/18 21:00 Dose: 0.25 mg Artificial Tears (Tears Naturale) 0 drop EA EYE PRN PRN PRN Reason: Dry Eyes Aspirin (Ecotrin) 325 mg PO DAILY [facility] Last Admin: 04/27/18 08:47 Dose: 325 mg Benzonatate (Tessalon) 100 mg PO TID [facility] Last Admin: 04/27/18 08:47 Dose: Not Given Bisacodyl (Dulcolax) 10 mg PO DAILYPRN PRN PRN Reason: Constipation Calcium Carbonate (Tums) 1,000 mg PO Q4H PRN PRN Reason: Heartburn or Indigestion Enoxaparin Sodium (Lovenox) 40 mg SC 0900 [facility] Last Admin: 04/27/18 08:47 Dose: 40 mg Famotidine (Pepcid) 20 mg PO BID [facility] Last Admin: 04/27/18 08:47 Dose: 20 mg Fluoxetine HCl (Prozac) 10 mg PO DAILY [facility] Last Admin: 04/27/18 08:47 Dose: 10 mg Furosemide (Lasix) 20 mg PO DAILYPRN PRN PRN Reason: DIRECTED Gabapentin (Neurontin) 300 mg PO TID [facility] Last Admin: 04/27/18 08:47 Dose: 300 mg Guaifenesin (Robitussin Sf) 200 mg PO Q4H PRN PRN Reason: Cough Guaifenesin (Mucinex) 600 mg PO Q12HR [facility] Last Admin: 04/27/18 08:47 Dose: 600 mg Hydralazine HCl (Apresoline) 10 mg SLOW IVP Q4H PRN PRN Reason: Systolic BP > 180 Azithromycin 500 mg/ Sodium (Chloride) 250 mls @ 250 mls/hr IVPB Q24HR [facility] Last Admin: 04/26/18 21:21 Dose: 250 mls Ceftriaxone Sodium 1 gm/ (Sodium Chloride) 100 mls @ 200 mls/hr IVPB Q24HR [facility] Last Admin: 04/26/18 23:16 Dose: 100 mls Loperamide HCl (Imodium) 2 mg PO PRN PRN PRN Reason: Diarrhea/Loose Stools Loratadine (Claritin) 10 mg PO DAILYPRN PRN PRN Reason: Sinus Symptoms Magnesium Hydroxide (Milk Of Magnesium) 30 ml PO DAILYPRN PRN PRN Reason: Constipation Melatonin (Melatonin) 3 mg PO HS PRN PRN Reason: Insomnia Methylprednisolone Sodium Succinate (Solu-Medrol) 20 mg IVP Q6HR [facility] Mineral Oil/White Petrolatum (Eucerin Cream) 0 gm TOP BIDPRN PRN PRN Reason: Dry Skin Mometasone Furoate/Formoterol Fumar (Dulera 200 Mcg/5 Mcg Inhaler) 2 puff INH BID-RT [facility] Last Admin: 04/27/18 08:00 Dose: 2 puff Montelukast Sodium (Singulair) 10 mg PO QPM [facility] Last Admin: 04/26/18 21:23 Dose: 10 mg Ondansetron HCl (Zofran Odt) 4 mg PO Q6H PRN PRN Reason: Nausea/Vomiting Ondansetron HCl (Zofran) 4 mg IVP Q6H PRN PRN Reason: Nausea/Vomiting Phenol (Chloraseptic [place] 180 Ml Bot) 0 ml PO PRN PRN PRN Reason: Sore Throat Sodium Chloride (Flush - Normal Saline) 10 ml IVF Q12HR [facility] Last Admin: 04/27/18 08:47 Dose: 10 ml Sodium Chloride (Flush - Normal Saline) 10 ml IVF PRN PRN PRN Reason: Saline Flush Last Admin: 04/26/18 18:46 Dose: 10 ml Sodium Chloride ([place] Nasal [place] 0.65%) 0 ml EA NARE QIDPRN PRN PRN Reason: Nasal Congestion Temazepam (Restoril) 15 mg PO HSPRN PRN PRN Reason: Insomnia
--- NOTE | 2018-04-27 15:00 | EKG ---
Test Reason : Blood Pressure : / mmHG Vent. Rate : 143 BPM Atrial Rate : 143 BPM P-R Int : 164 ms QRS Dur : 074 ms QT Int : 262 ms P-R-T Axes : 082 109 018 degrees QTc Int : 404 ms Sinus tachycardia Possible Right ventricular hypertrophy Abnormal ECG When compared with ECG of 23-APR-2018 20:04, (Unconfirmed) Premature supraventricular complexes are no longer Present Confirmed by CHANCE REBOLLEDO ([id number]) on 04/27/2018 3:00:29 PM Referred By: AYLIN Confirmed By:CHANCE REBOLLEDO
[2018-04-27] MEDS: Montelukast Sodium 10 mg Tablet PO SCH (21:38)
[2018-04-27] MEDS: Azithromycin 500 MG in Sodium Chloride 0.9% 250 ML 250 ML IVPB SCH (21:44)
[2018-04-27] MEDS: cefTRIAXone\\ROCEPHIN 1 GM in Sodium Chloride 0.9% 100 ML IVPB SCH (21:44)
[2018-04-28 04:58] LABS: #Lymphocytes 0.7 thou/uL (1.20-3.40); #Monocytes 0.7 thou/uL (0.11-0.59); #Neutrophils 10.4 thou/uL (1.40-6.50); %Eosinophils 0.2 % (0.0-10.0); %Lymphocytes 6.2 % (21.0-51.0); %Monocytes 5.5 % (0.0-10.0); %Neutrophils 88.1 % (42.0-75.0); Hemoglobin 15.5 g/dL (12.0-16.0); Mean Corpuscular HGB CONC 34.3 g/dL (32.0-36.0); Mean Corpuscular Hemoglobin 29.9 pg (27.0-31.0); Mean Corpuscular Volume 87.3 fl (81.0-99.0); Mean Platelet Volume 8.4 fL (7.4-10.4); Platelet Count 223 thou/uL (130-400); RBC Distribution Width 12.6 % (11.5-14.5); Red Blood Cell (RBC) Count 5.17 mill/uL (4.20-5.40); White Blood Cell (WBC) Count 11.8 thou/uL (4.8-10.8)
[2018-04-28 05:08] LABS: Anion Gap 10 mmol/L (10-20); BUN (Urea Nitrogen) 16 mg/dL (9.8-20.1); Calc. Creatinine Clearance 103 mL/min (70-130); Calcium 8.6 mg/dL (7.8-10.44); Carbon Dioxide 35 mmol/L (23-31); Chloride 105 mmol/L (98-107); Estimated GFR-MDRD 86; Glucose 137 mg/dL (80-115); Potassium 3.5 mmol/L (3.5-5.1); Sodium 146 mmol/L (136-145)
[2018-04-28] MEDS: Mometasone/Formoterol 120 PUFF INHALER INH SCH ×2 (07:32→18:41)
--- NOTE | 2018-04-28 08:07 | PRG ---
DATE OF SERVICE: 04/28/2018 The patient feels better. She says she wants to go home. PHYSICAL EXAMINATION: VITAL SIGNS: Temperature 97.7, pulse 91, respirations 20, O2 sat 92% on 2 liters. She was moved do wn to 2 liters about 2200 last night. HEENT: Unremarkable. NECK: No JVD. LUNGS: Coarse rhonchi. CARDIAC: S1 and S2 regular. ABDOMEN: Soft. EXTREMITIES: No edema. LABORATORY DATA: Sodium 146, potassium 3.5, chloride 105, CO2 35, BUN 16, creatinine 0.7, glucose 13 7. White blood cell count 11.8, hematocrit 45, platelet count 223. ASSESSMENT: 1. Chronic obstructive pulmonary disease with exacerbation. 2. Mild hypernatremia. PLAN: She will be transferred out to the medical floor. She can go home when her oxygen requirement s have improved.
[2018-04-28] MEDS: FLUoxetine HCl 10 MG CAP PO SCH (08:37)
[2018-04-28] MEDS: Enoxaparin Sodium 40 MG/0.4 ML SYRINGE SC SCH (08:37)
[2018-04-28] MEDS: Famotidine 20 MG TAB PO SCH ×2 (08:37→20:43)
[2018-04-28] MEDS: Aspirin 325 mg Enteric Coated Tablet PO SCH (08:37)
[2018-04-28] MEDS: guaiFENesin ER 600 MG TAB PO SCH ×2 (08:37→20:43)
[2018-04-28] MEDS: Benzonatate 100 MG CAP PO SCH ×3 (08:37→20:42)
[2018-04-28] MEDS: Gabapentin 300 MG CAP PO SCH ×3 (08:37→20:43)
--- NOTE | 2018-04-28 11:46 | PDOC.PN ---
- Subjective Encounter Start Date: 04/28/18 Encounter Start Time: 09:35 Subjective: breathing better -: still on nasal canula -: is off bipap - Objective Resuscitation Status: Resuscitation Status FULL:Full Resuscitation MAR Reviewed: Yes Vital Signs & Weight: Vital Signs (12 hours) Temp Pulse Resp BP BP Pulse Ox 04/28/18 11:32 98.3 F 82 16 160/81 H 88 L 04/28/18 10:42 91 18 95 04/28/18 09:50 97.7 F 87 14 156/78 H 96 04/28/18 08:00 97.7 F 91 20 92 L 04/28/18 07:41 97.7 F 91 20 147/79 H 92 L 04/28/18 07:29 88 18 04/28/18 04:00 98.2 F 90 18 133/83 95 04/28/18 03:13 97 04/28/18 01:49 98 18 97 04/28/18 00:00 97.7 F 106 H 18 117/73 90 L Weight Weight 175 lb 1.883 oz I&O: 04/27/18 04/28/18 04/29/18 06:59 06:59 06:59 Intake Total 1890 960 Output Total 1700 950 Balance 190 10 Result Diagrams: 04/28/18 03:36 04/28/18 03:36 Phys Exam - Physical Examination HEENT: PERRLA, moist MMs Neck: no JVD, supple Respiratory: no wheezing, no rales rhonchi+ Cardiovascular: RRR, no significant murmur Gastrointestinal: soft, non-tender, positive bowel sounds Musculoskeletal: no edema, pulses present Neurological: non-focal, moves all 4 limbs Psychiatric: normal affect, A&O x 3 Dx/Plan (1) Acute respiratory failure with hypoxia Code(s): J96.01 - ACUTE RESPIRATORY FAILURE WITH HYPOXIA Status: Resolved (2) COPD exacerbation Code(s): J44.1 - CHRONIC OBSTRUCTIVE PULMONARY DISEASE W (ACUTE) EXACERBATION Status: Acute (3) Community acquired bacterial pneumonia Code(s): J15.9 - UNSPECIFIED BACTERIAL PNEUMONIA Status: Acute (4) Anxiety and depression Code(s): F41.9 - ANXIETY DISORDER, UNSPECIFIED; F32.9 - MAJOR DEPRESSIVE DISORDER, SINGLE EPISODE, UNSPECIFIED Status: Chronic - Plan is on ceftriaxone and zithromax -: nebs, solumedrol 20mg q8h -: to amb as tolerated -: taper and dc oxygen for spo2 >90% -: dc plan in am is stable * . Review of Systems - Medications/Allergies Allergies/Adverse Reactions: Allergies Allergy/AdvReac Type Severity Reaction Status Date / Time iodine Allergy Severe Anaphylaxis Verified 04/24/18 00:14 Sulfa (Sulfonamide Allergy Intermediate Rash Verified 04/24/18 00:14 Antibiotics) doxycycline Allergy cramps Verified 04/24/18 00:14 levofloxacin [From Levaquin] Allergy aches, Verified 04/24/18 00:14 itching Medications: Current Medications Acetaminophen (Tylenol) 650 mg PO Q4H PRN PRN Reason: Headache/Fever or Pain Al Hydroxide/Mg Hydroxide (Maalox) 15 ml PO Q4H PRN PRN Reason: Heartburn or Indigestion Albuterol/Ipratropium (Duoneb) 3 ml NEB [id number] [facility] Last Admin: 04/28/18 10:42 Dose: 3 ml Alprazolam (Xanax) 0.25 mg PO TIDPRN PRN PRN Reason: Anxiety Last Admin: 04/24/18 21:00 Dose: 0.25 mg Artificial Tears (Tears Naturale) 0 drop EA EYE PRN PRN PRN Reason: Dry Eyes Aspirin (Ecotrin) 325 mg PO DAILY [facility] Last Admin: 04/28/18 08:37 Dose: 325 mg Benzonatate (Tessalon) 100 mg PO TID [facility] Last Admin: 04/28/18 08:37 Dose: Not Given Bisacodyl (Dulcolax) 10 mg PO DAILYPRN PRN PRN Reason: Constipation Calcium Carbonate (Tums) 1,000 mg PO Q4H PRN PRN Reason: Heartburn or Indigestion Enoxaparin Sodium (Lovenox) 40 mg SC 0900 [facility] Last Admin: 04/28/18 08:37 Dose: 40 mg Famotidine (Pepcid) 20 mg PO BID [facility] Last Admin: 04/28/18 08:37 Dose: 20 mg Fluoxetine HCl (Prozac) 10 mg PO DAILY [facility] Last Admin: 04/28/18 08:37 Dose: 10 mg Gabapentin (Neurontin) 300 mg PO TID [facility] Last Admin: 04/28/18 08:37 Dose: 300 mg Guaifenesin (Robitussin Sf) 200 mg PO Q4H PRN PRN Reason: Cough Guaifenesin (Mucinex) 600 mg PO Q12HR [facility] Last Admin: 04/28/18 08:37 Dose: 600 mg Hydralazine HCl (Apresoline) 10 mg SLOW IVP Q4H PRN PRN Reason: Systolic BP > 180 Azithromycin 500 mg/ Sodium (Chloride) 250 mls @ 250 mls/hr IVPB Q24HR [facility] Last Admin: 04/27/18 21:44 Dose: 250 mls Ceftriaxone Sodium 1 gm/ (Sodium Chloride) 100 mls @ 200 mls/hr IVPB Q24HR [facility] Last Admin: 04/27/18 21:44 Dose: 100 mls Loperamide HCl (Imodium) 2 mg PO PRN PRN PRN Reason: Diarrhea/Loose Stools Loratadine (Claritin) 10 mg PO DAILYPRN PRN PRN Reason: Sinus Symptoms Magnesium Hydroxide (Milk Of Magnesium) 30 ml PO DAILYPRN PRN PRN Reason: Constipation Melatonin (Melatonin) 3 mg PO HS PRN PRN Reason: Insomnia Methylprednisolone Sodium Succinate (Solu-Medrol) 20 mg IVP Q6HR [facility] Last Admin: 04/28/18 06:10 Dose: 20 mg Mineral Oil/White Petrolatum (Eucerin Cream) 0 gm TOP BIDPRN PRN PRN Reason: Dry Skin Mometasone Furoate/Formoterol Fumar (Dulera 200 Mcg/5 Mcg Inhaler) 2 puff INH BID-RT [facility] Last Admin: 04/28/18 07:32 Dose: 2 puff Montelukast Sodium (Singulair) 10 mg PO QPM [facility] Last Admin: 04/27/18 21:38 Dose: 10 mg Ondansetron HCl (Zofran Odt) 4 mg PO Q6H PRN PRN Reason: Nausea/Vomiting Ondansetron HCl (Zofran) 4 mg IVP Q6H PRN PRN Reason: Nausea/Vomiting Phenol (Chloraseptic [place] 180 Ml Bot) 0 ml PO PRN PRN PRN Reason: Sore Throat Sodium Chloride (Flush - Normal Saline) 10 ml IVF Q12HR [facility] Last Admin: 04/28/18 08:37 Dose: 10 ml Sodium Chloride (Flush - Normal Saline) 10 ml IVF PRN PRN PRN Reason: Saline Flush Last Admin: 04/26/18 18:46 Dose: 10 ml Sodium Chloride ([place] Nasal [place] 0.65%) 0 ml EA NARE QIDPRN PRN PRN Reason: Nasal Congestion Temazepam (Restoril) 15 mg PO HSPRN PRN PRN Reason: Insomnia
[2018-04-28] MEDS: Montelukast Sodium 10 mg Tablet PO SCH (20:43)
[2018-04-28] MEDS: Azithromycin 500 MG in Sodium Chloride 0.9% 250 ML 250 ML IVPB SCH (20:44)
[2018-04-28] MEDS: cefTRIAXone\\ROCEPHIN 1 GM in Sodium Chloride 0.9% 100 ML IVPB SCH (23:08)
[2018-04-29] MEDS: Mometasone/Formoterol 120 PUFF INHALER INH SCH ×2 (06:53→19:15)
[2018-04-29] MEDS ORDERED: Furosemide 40 MG/4 ML VIAL SLOW IVP SCH ×2 (08:45→15:30)
--- NOTE | 2018-04-29 09:00 | PRG ---
DATE OF SERVICE: 04/29/2018 The patient remains hypoxemic on low flow oxygen. On 1.5 liters she was running about 87% sitting in a chair this morning. PHYSICAL EXAMINATION: VITAL SIGNS: Her temperature is 98.2, pulse 83, respirations 22. HEENT: Unremarkable. NECK: No adenopathy or JVD. LUNGS: Coarse breath sounds with rhonchi bilaterally. CARDIAC: S1 and S2 regular. ABDOMEN: Soft. EXTREMITIES: No edema. LABORATORY DATA: No labs were obtained today. ASSESSMENT: 1. Chronic obstructive pulmonary disease with exacerbation. 2. Possible concurrent pulmonary edema. PLAN: I will give her a dose of diuretics today and see if that helps. We will continue to try to w mario her oxygen.
[2018-04-29] MEDS: predniSONE 20 MG TAB PO SCH (09:05)
[2018-04-29] MEDS: Benzonatate 100 MG CAP PO SCH ×3 (09:06→21:55)
[2018-04-29] MEDS: Cefdinir 300 MG CAP PO SCH ×2 (09:06→21:54)
[2018-04-29] MEDS: Enoxaparin Sodium 40 MG/0.4 ML SYRINGE SC SCH (09:06)
[2018-04-29] MEDS: Gabapentin 300 MG CAP PO SCH ×3 (09:06→21:54)
[2018-04-29] MEDS: Aspirin 325 mg Enteric Coated Tablet PO SCH (09:06)
[2018-04-29] MEDS: Famotidine 20 MG TAB PO SCH ×2 (09:06→21:54)
[2018-04-29] MEDS: FLUoxetine HCl 10 MG CAP PO SCH (09:06)
[2018-04-29] MEDS: guaiFENesin ER 600 MG TAB PO SCH ×2 (09:06→21:54)
--- NOTE | 2018-04-29 12:27 | PDOC.PN ---
- Subjective Encounter Start Date: 04/29/18 Encounter Start Time: 07:30 Subjective: sitting in chair, says she amb yesterday -: currently on nasal canula - Objective Resuscitation Status: Resuscitation Status FULL:Full Resuscitation MAR Reviewed: Yes Vital Signs & Weight: Vital Signs (12 hours) Temp Pulse Resp BP Pulse Ox 04/29/18 11:32 98.1 F 107 H 20 138/78 90 L 04/29/18 10:52 106 H 22 H 04/29/18 08:00 98.2 F 83 22 H 98 04/29/18 07:52 98.2 F 83 22 H 150/81 H 98 04/29/18 06:53 92 L 04/29/18 06:50 93 20 92 L 04/29/18 04:43 92 L 04/29/18 04:00 98.1 F 82 18 135/76 95 04/29/18 03:58 94 L Weight Weight 175 lb 1.883 oz I&O: 04/28/18 04/29/18 04/30/18 06:59 06:59 06:59 Intake Total 960 910 Output Total 950 Balance 10 910 Result Diagrams: 04/28/18 03:36 04/28/18 03:36 Phys Exam - Physical Examination HEENT: PERRLA, moist MMs Neck: no JVD, supple Respiratory: no wheezing, no rales rhonchi+ Cardiovascular: RRR, no significant murmur Gastrointestinal: soft, non-tender, positive bowel sounds Musculoskeletal: no edema, pulses present Neurological: non-focal, moves all 4 limbs Psychiatric: normal affect, A&O x 3 Dx/Plan (1) Acute respiratory failure with hypoxia Code(s): J96.01 - ACUTE RESPIRATORY FAILURE WITH HYPOXIA Status: Resolved (2) COPD exacerbation Code(s): J44.1 - CHRONIC OBSTRUCTIVE PULMONARY DISEASE W (ACUTE) EXACERBATION Status: Acute (3) Community acquired bacterial pneumonia Code(s): J15.9 - UNSPECIFIED BACTERIAL PNEUMONIA Status: Acute (4) Anxiety and depression Code(s): F41.9 - ANXIETY DISORDER, UNSPECIFIED; F32.9 - MAJOR DEPRESSIVE DISORDER, SINGLE EPISODE, UNSPECIFIED Status: Chronic - Plan agree with lasix, will give a total of 4 doses including one this am -: cxr in am -: was 84% off oxygen while sitting in chair -: omnicef, prednisone, nebs -: to amb with oxygen in hallway * . Review of Systems - Medications/Allergies Allergies/Adverse Reactions: Allergies Allergy/AdvReac Type Severity Reaction Status Date / Time iodine Allergy Severe Anaphylaxis Verified 04/24/18 00:14 Sulfa (Sulfonamide Allergy Intermediate Rash Verified 04/24/18 00:14 Antibiotics) doxycycline Allergy cramps Verified 04/24/18 00:14 levofloxacin [From Levaquin] Allergy aches, Verified 04/24/18 00:14 itching Medications: Current Medications Acetaminophen (Tylenol) 650 mg PO Q4H PRN PRN Reason: Headache/Fever or Pain Al Hydroxide/Mg Hydroxide (Maalox) 15 ml PO Q4H PRN PRN Reason: Heartburn or Indigestion Albuterol/Ipratropium (Duoneb) 3 ml NEB [id number] [facility] Last Admin: 04/29/18 10:52 Dose: 3 ml Alprazolam (Xanax) 0.25 mg PO TIDPRN PRN PRN Reason: Anxiety Last Admin: 04/24/18 21:00 Dose: 0.25 mg Artificial Tears (Tears Naturale) 0 drop EA EYE PRN PRN PRN Reason: Dry Eyes Aspirin (Ecotrin) 325 mg PO DAILY [facility] Last Admin: 04/29/18 09:06 Dose: 325 mg Benzonatate (Tessalon) 100 mg PO TID [facility] Last Admin: 04/29/18 09:06 Dose: Not Given Bisacodyl (Dulcolax) 10 mg PO DAILYPRN PRN PRN Reason: Constipation Calcium Carbonate (Tums) 1,000 mg PO Q4H PRN PRN Reason: Heartburn or Indigestion Cefdinir (Omnicef) 300 mg PO BID [facility] Last Admin: 04/29/18 09:06 Dose: 300 mg Enoxaparin Sodium (Lovenox) 40 mg SC 0900 [facility] Last Admin: 04/29/18 09:06 Dose: 40 mg Famotidine (Pepcid) 20 mg PO BID [facility] Last Admin: 04/29/18 09:06 Dose: 20 mg Fluoxetine HCl (Prozac) 10 mg PO DAILY [facility] Last Admin: 04/29/18 09:06 Dose: 10 mg Gabapentin (Neurontin) 300 mg PO TID [facility] Last Admin: 04/29/18 09:06 Dose: 300 mg Guaifenesin (Robitussin Sf) 200 mg PO Q4H PRN PRN Reason: Cough Guaifenesin (Mucinex) 600 mg PO Q12HR [facility] Last Admin: 04/29/18 09:06 Dose: 600 mg Hydralazine HCl (Apresoline) 10 mg SLOW IVP Q4H PRN PRN Reason: Systolic BP > 180 Loperamide HCl (Imodium) 2 mg PO PRN PRN PRN Reason: Diarrhea/Loose Stools Loratadine (Claritin) 10 mg PO DAILYPRN PRN PRN Reason: Sinus Symptoms Magnesium Hydroxide (Milk Of Magnesium) 30 ml PO DAILYPRN PRN PRN Reason: Constipation Melatonin (Melatonin) 3 mg PO HS PRN PRN Reason: Insomnia Mineral Oil/White Petrolatum (Eucerin Cream) 0 gm TOP BIDPRN PRN PRN Reason: Dry Skin Mometasone Furoate/Formoterol Fumar (Dulera 200 Mcg/5 Mcg Inhaler) 2 puff INH BID-RT [facility] Last Admin: 04/29/18 06:53 Dose: 2 puff Montelukast Sodium (Singulair) 10 mg PO QPM [facility] Last Admin: 04/28/18 20:43 Dose: 10 mg Ondansetron HCl (Zofran Odt) 4 mg PO Q6H PRN PRN Reason: Nausea/Vomiting Ondansetron HCl (Zofran) 4 mg IVP Q6H PRN PRN Reason: Nausea/Vomiting Phenol (Chloraseptic [place] 180 Ml Bot) 0 ml PO PRN PRN PRN Reason: Sore Throat Prednisone (Prednisone) 40 mg PO QAM[facility] Last Admin: 04/29/18 09:05 Dose: 40 mg Sodium Chloride (Flush - Normal Saline) 10 ml IVF Q12HR [facility] Last Admin: 04/29/18 09:07 Dose: 10 ml Sodium Chloride (Flush - Normal Saline) 10 ml IVF PRN PRN PRN Reason: Saline Flush Last Admin: 04/26/18 18:46 Dose: 10 ml Sodium Chloride ([place] Nasal [place] 0.65%) 0 ml EA NARE QIDPRN PRN PRN Reason: Nasal Congestion Temazepam (Restoril) 15 mg PO HSPRN PRN PRN Reason: Insomnia
[2018-04-29 18:28] LABS: Troponin I 0.012 ng/mL (< 0.028)
[2018-04-29 19:18] LABS: HIV (1/2) Antibody/Antigen Non-Reactive (NonReactive); HIV 1/2 INDEX 0.21 S/CO (<1.00)
[2018-04-29 21:10] LABS: Troponin I Less than 0.010 ng/mL (< 0.028)
[2018-04-29] MEDS: Montelukast Sodium 10 mg Tablet PO SCH (21:54)
[2018-04-29] MEDS: ALPRAZolam 0.25 MG TAB PO PRN (21:54)
--- NOTE | 2018-04-30 01:24 | CON ---
DATE OF CONSULTATION: 04/29/2018 HISTORY OF PRESENT ILLNESS: This is a 62-year-old female who was admitted on 04/24 with respiratory insufficiency, probable pulmonary infectious process. She developed some hypercarbic respiratory ravi lure and required BiPAP. She then had improvement from that. She underwent cardiac echo this aftern oon, demonstrating a moderate to large pericardial effusion with some element of tamponade per the ca rdiology report. I have been asked to see her for possible pericardial window. PAST MEDICAL HISTORY: Significant for an ASD closure, 2 years ago. This was found due to increasing shortness of breath and attempted percutaneous closure was unsuccessful and she underwent open and c losure in [place] by Dr. Nieto. She had some postoperative respiratory insufficiency and remained on the ventilator for several days, but ultimately was discharged about 1 week postoperatively. She did not notice any significant improvement in her breathing symptoms, although may have been slightly be tter. 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 Otherwise her past med ical history includes longstanding smoking history with COPD, although she stopped smoking about 2 ye ars ago. She uses a nebulizer at home as well as an inhaler as needed. She does not wear home oxyge n. She has chronic back pain. PAST SURGICAL HISTORY: Includes the above noted ASD repair as well as remote cholecystectomy, hyster ectomy, appendectomy, bladder suspension, and eye surgery. ALLERGIES: LEVOFLOXACIN, DOXYCYCLINE, IV CONTRAST, SULFA, and ERYTHROMYCIN. SOCIAL HISTORY: She works in the [employer], is living with the significant other, and has not smoked in 2 years. HOME MEDICATIONS: Included Lasix 10 mg daily, fluoxetine 10 mg daily, Dulera as needed, gabapentin 3 00 mg as needed. CURRENT MEDICATIONS: Include Xanax p.r.n., aspirin 325 a day, Omnicef b.i.d., fluoxetine, Lasix, carl apentin. IMAGING: Chest x-ray, bilateral hilar infiltrates. Echo pericardial effusion with preserved left ve ntricular systolic function, although the patient's echo was of marginal quality. LABORATORY VALUES: Currently not remarkable. PHYSICAL EXAMINATION: GENERAL: Alert, cooperative lady. VITAL SIGNS: Heart rate 110, blood pressure 130. NECK: In the sitting position reveals prominent veins that do not decrease with inspiration. LUNGS: Reveal bilateral inspiratory and expiratory wheezes. CARDIAC: Distant heart sounds, tachycardia. No murmurs. ABDOMEN: Soft, nontender, well-healed sternotomy incision. Right upper quadrant incision. EXTREMITIES: She has no edema. She has palpable right posterior tibial and left dorsalis pedis puls es. I have discussed the situation with the patient and discussed a pericardial window for possible early tamponade. I have gone over the procedure, risk, benefits, and options of continued observation and she is interested in proceeding.
--- NOTE | 2018-04-30 01:36 | CON ---
DATE OF CONSULTATION: 04/29/2018 REASON FOR CONSULTATION: Pericardial effusion. HISTORY OF PRESENT ILLNESS: Ms. Liiga Mcpherson is a very pleasant 62-year-old woman. The patient was admitted to the hospital with difficulty breathing. The patient has been seen by Dr. Alan Peoples, as the patient does have some history of obstructive lung disease. The patient was having increasing shortness of breath and fever. Initially, was having severe wheezing and some mental status changes . She was hypercapnic and brought to the [facility] where she was placed on BiPAP, later improved. PAST MEDICAL HISTORY: 1. COPD. 2. Pericarditis. 3. ASD, with repair. 4. History of alcohol abuse in the past. PAST SURGICAL HISTORY: Cholecystectomy; hysterectomy; ASD repair, apparently the the defect was too large to fix percutaneously. She said she underwent cardiac catheterization and did not have blockag e in her arteries; this was done a couple years ago. FAMILY HISTORY: Positive for lung cancer. SOCIAL HISTORY: Quit smoking 2 years ago. MEDICATIONS PRIOR TO ADMISSION: Gabapentin, furosemide, fluoxetine, and Dulera. REVIEW OF SYSTEMS: Constitutional: No significant weight gain or loss. Vision: No changes. Heari ng: No changes. Pulmonary: No cough or wheezing. Gastrointestinal: No nausea, vomiting, diarrhea . Skin: No rashes. Neurologic: No unilateral weakness or numbness. Psychiatric: No unusual depr ession or anxiety. Hematologic: No unusual bruising. Genitourinary: No burning with urination. PHYSICAL EXAMINATION: GENERAL: This is a very pleasant 62-year-old woman, sitting up in bed. She is somewhat apprehensive now, as she knows she has a pericardial effusion (outlined below). VITAL SIGNS: Blood pressure 138/79, pulse is 110 and it is regular. HEENT: Sclerae nonicteric. Mouth mucous membranes moist. NECK: Supple, no lymphadenopathy. LUNGS: Clear. I do not hear any wheezing, rales, or rhonchi now. CARDIAC: Somewhat distant. No murmur, rub, or gallop. ABDOMEN: Soft, nontender, no hepatosplenomegaly. EXTREMITIES: No clubbing or cyanosis. There is no significant edema. SKIN: Warm and dry. LABORATORY AND X-RAY FINDINGS: EKG, sinus rhythm. She has occasional episodes of supraventricular t achycardia. The voltage is relatively low, compatible with pericardial effusion. Echocardiogram michael wed normal left ventricular function. There is a [id number] pericardial effusion that is a dodd boptimal imaging test. The right ventricle does not show evidence of collapse. It is difficult to s ee the right atrium. There is some decrease in the mitral inflow pattern with inspiration. ASSESSMENT: 1. Chronic obstructive pulmonary disease. 2. [id number] pericardial effusion. 3. Previous atrial septal defect repair. 4. Tachycardia. 5. Respiratory variation in the mitral inflow pattern as mentioned. At this time, it is not clear whether her pericardial effusion may be causing early hemodynamic compr omise. Certainly, there is no evidence of right ventricular collapse; however, it is difficult to sa y she does not have some early tamponade in view of the tachycardia and continued shortness of breath . I think it would be reasonable to drain the pericardial effusion. PLAN: I discussed the risks of the procedure with the patient. Dr. Vargas has been notified. It is not emergent, but I would think it would be reasonable to proceed to a pericardial window, as is cecil sanabria.
[2018-04-30 05:36] LABS: Anion Gap 13 mmol/L (10-20); BUN (Urea Nitrogen) 26 mg/dL (9.8-20.1); Calc. Creatinine Clearance 82 mL/min (70-130); Calcium 8.8 mg/dL (7.8-10.44); Carbon Dioxide 35 mmol/L (23-31); Chloride 99 mmol/L (98-107); Estimated GFR-MDRD 66; Glucose 116 mg/dL (80-115); Potassium 3.3 mmol/L (3.5-5.1); Sodium 144 mmol/L (136-145)
[2018-04-30] MEDS ORDERED: Potassium Chloride 20 MEQ TAB PO SCH (06:45)
[2018-04-30] MEDS: Mometasone/Formoterol 120 PUFF INHALER INH SCH ×2 (07:00→19:12)
[2018-04-30] MEDS: Cefdinir 300 MG CAP PO SCH ×2 (08:30→20:42)
[2018-04-30] MEDS: Famotidine 20 MG TAB PO SCH ×2 (08:31→20:42)
[2018-04-30] MEDS: Gabapentin 300 MG CAP PO SCH ×3 (08:32→20:42)
[2018-04-30] MEDS: predniSONE 20 MG TAB PO SCH (08:32)
[2018-04-30] MEDS: FLUoxetine HCl 10 MG CAP PO SCH (08:32)
[2018-04-30] MEDS: Enoxaparin Sodium 40 MG/0.4 ML SYRINGE SC SCH (08:33)
[2018-04-30] MEDS: Aspirin 325 mg Enteric Coated Tablet PO SCH (08:33)
[2018-04-30] MEDS: Benzonatate 100 MG CAP PO SCH ×3 (08:33→20:42)
[2018-04-30] MEDS: guaiFENesin ER 600 MG TAB PO SCH ×2 (08:33→20:42)
[2018-04-30] MEDS ORDERED: Furosemide 40 MG/4 ML VIAL SLOW IVP SCH (09:00)
--- NOTE | 2018-04-30 10:14 | PRG ---
DATE OF SERVICE: 04/30/2018 SUBJECTIVE: The patient has been diagnosed with large pericardial effusion and is awaiting a window procedure morning. PHYSICAL EXAMINATION: VITAL SIGNS: Temperature 97.8, pulse 85, respirations 19, O2 sat 95% on 3 liters. HEENT: Unremarkable. NECK: No JVD. CHEST: Clear without wheezing or rhonchi. CARDIAC: S1 and S2 regular. ABDOMEN: Soft. EXTREMITIES: No edema. LABORATORY DATA: Sodium 144, potassium 3.3, chloride 99, CO2 35, BUN 26, creatinine 0.8, and glucose 116. ASSESSMENT: 1. Pericardial effusion with some component of tamponade. 2. Chronic obstructive pulmonary disease with exacerbation. PLAN: Awaiting window procedure today. Continuing nebulization treatment and antibiotics.
[2018-04-30] MEDS ORDERED: Fentanyl 100 MCG/2 ML VIAL ONE ×2 (11:37→15:29)
[2018-04-30] MEDS ORDERED: Midazolam HCl 2 mg/2 ml Vial ONE (11:41)
[2018-04-30] MEDS ORDERED: Ketamine 50 MG/ML VIAL ONE (12:00)
[2018-04-30] MEDS ORDERED: Succinylcholine Chloride 20 MG/ML 10 ml SYRINGE FS ONE (12:18)
--- NOTE | 2018-04-30 12:41 | PDOC.PN ---
- Subjective Encounter Start Date: 04/30/18 Encounter Start Time: 11:00 Subjective: awake, family at bedside -: no sob or chest pain or palp - Objective Resuscitation Status: Resuscitation Status FULL:Full Resuscitation MAR Reviewed: Yes Vital Signs & Weight: Vital Signs (12 hours) Temp Pulse Resp BP Pulse Ox 04/30/18 10:52 97.0 F L 87 20 118/73 93 L 04/30/18 08:00 97.8 F 75 19 95 04/30/18 07:34 97.8 F 75 19 125/82 95 04/30/18 07:00 72 16 94 L 04/30/18 06:59 72 16 94 L 04/30/18 04:00 97.6 F 79 19 121/77 92 L Weight Weight 175 lb 1.883 oz I&O: 04/29/18 04/30/18 05/01/18 06:59 06:59 06:59 Intake Total 910 1240 Balance 910 1240 Result Diagrams: 04/28/18 03:36 04/30/18 03:50 Phys Exam - Physical Examination HEENT: PERRLA, moist MMs Neck: no JVD, supple Respiratory: no wheezing, no rales Cardiovascular: RRR, no significant murmur Gastrointestinal: soft, non-tender, positive bowel sounds Musculoskeletal: no edema, pulses present Neurological: non-focal, moves all 4 limbs Psychiatric: normal affect, A&O x 3 Dx/Plan (1) Acute respiratory failure with hypoxia Code(s): J96.01 - ACUTE RESPIRATORY FAILURE WITH HYPOXIA Status: Resolved (2) COPD exacerbation Code(s): J44.1 - CHRONIC OBSTRUCTIVE PULMONARY DISEASE W (ACUTE) EXACERBATION Status: Acute (3) Community acquired bacterial pneumonia Code(s): J15.9 - UNSPECIFIED BACTERIAL PNEUMONIA Status: Acute (4) Anxiety and depression Code(s): F41.9 - ANXIETY DISORDER, UNSPECIFIED; F32.9 - MAJOR DEPRESSIVE DISORDER, SINGLE EPISODE, UNSPECIFIED Status: Chronic (5) Pericardial effusion Code(s): I31.3 - PERICARDIAL EFFUSION (NONINFLAMMATORY) Status: Acute - Plan for P.window today -: await cytology and pericardial bx -: parainfluenza type 3 +ve in viral PCR, ?etiology for p.effusion -: on omnicef, prednisone and nebs -: may tx to tele if stable after procedure * . Review of Systems - Medications/Allergies Allergies/Adverse Reactions: Allergies Allergy/AdvReac Type Severity Reaction Status Date / Time iodine Allergy Severe Anaphylaxis Verified 04/24/18 00:14 Sulfa (Sulfonamide Allergy Intermediate Rash Verified 04/24/18 00:14 Antibiotics) doxycycline Allergy cramps Verified 04/24/18 00:14 levofloxacin [From Levaquin] Allergy aches, Verified 04/24/18 00:14 itching Medications: Current Medications Acetaminophen (Tylenol) 650 mg PO Q4H PRN PRN Reason: Headache/Fever or Pain Al Hydroxide/Mg Hydroxide (Maalox) 15 ml PO Q4H PRN PRN Reason: Heartburn or Indigestion Albuterol/Ipratropium (Duoneb) 3 ml NEB [id number] [facility] Last Admin: 04/30/18 11:32 Dose: Not Given Alprazolam (Xanax) 0.25 mg PO TIDPRN PRN PRN Reason: Anxiety Last Admin: 04/29/18 21:54 Dose: 0.25 mg Artificial Tears (Tears Naturale) 0 drop EA EYE PRN PRN PRN Reason: Dry Eyes Aspirin (Ecotrin) 325 mg PO DAILY [facility] Last Admin: 04/30/18 08:33 Dose: Not Given Benzonatate (Tessalon) 100 mg PO TID [facility] Last Admin: 04/30/18 08:33 Dose: Not Given Bisacodyl (Dulcolax) 10 mg PO DAILYPRN PRN PRN Reason: Constipation Calcium Carbonate (Tums) 1,000 mg PO Q4H PRN PRN Reason: Heartburn or Indigestion Cefdinir (Omnicef) 300 mg PO BID [facility] Last Admin: 04/30/18 08:30 Dose: 300 mg Enoxaparin Sodium (Lovenox) 40 mg SC 0900 [facility] Last Admin: 04/30/18 08:33 Dose: Not Given Famotidine (Pepcid) 20 mg PO BID [facility] Last Admin: 04/30/18 08:31 Dose: 20 mg Fluoxetine HCl (Prozac) 10 mg PO DAILY [facility] Last Admin: 04/30/18 08:32 Dose: 10 mg Furosemide (Lasix) 40 mg SLOW IVP DAILY [facility] Last Admin: 04/30/18 08:32 Dose: 40 mg Gabapentin (Neurontin) 300 mg PO TID [facility] Last Admin: 04/30/18 08:32 Dose: 300 mg Guaifenesin (Robitussin Sf) 200 mg PO Q4H PRN PRN Reason: Cough Guaifenesin (Mucinex) 600 mg PO Q12HR [facility] Last Admin: 04/30/18 08:33 Dose: Not Given Hydralazine HCl (Apresoline) 10 mg SLOW IVP Q4H PRN PRN Reason: Systolic BP > 180 Loperamide HCl (Imodium) 2 mg PO PRN PRN PRN Reason: Diarrhea/Loose Stools Loratadine (Claritin) 10 mg PO DAILYPRN PRN PRN Reason: Sinus Symptoms Magnesium Hydroxide (Milk Of Magnesium) 30 ml PO DAILYPRN PRN PRN Reason: Constipation Melatonin (Melatonin) 3 mg PO HS PRN PRN Reason: Insomnia Last Admin: 04/29/18 21:53 Dose: 3 mg Mineral Oil/White Petrolatum (Eucerin Cream) 0 gm TOP BIDPRN PRN PRN Reason: Dry Skin Mometasone Furoate/Formoterol Fumar (Dulera 200 Mcg/5 Mcg Inhaler) 2 puff INH BID-RT [facility] Last Admin: 04/30/18 07:00 Dose: 2 puff Montelukast Sodium (Singulair) 10 mg PO QPM [facility] Last Admin: 04/29/18 21:54 Dose: 10 mg Ondansetron HCl (Zofran Odt) 4 mg PO Q6H PRN PRN Reason: Nausea/Vomiting Ondansetron HCl (Zofran) 4 mg IVP Q6H PRN PRN Reason: Nausea/Vomiting Phenol (Chloraseptic [place] 180 Ml Bot) 0 ml PO PRN PRN PRN Reason: Sore Throat Prednisone (Prednisone) 40 mg PO QAM-WM [facility] Last Admin: 04/30/18 08:32 Dose: 40 mg Sodium Chloride (Flush - Normal Saline) 10 ml IVF Q12HR [facility] Last Admin: 04/30/18 08:33 Dose: 10 ml Sodium Chloride (Flush - Normal Saline) 10 ml IVF PRN PRN PRN Reason: Saline Flush Last Admin: 04/26/18 18:46 Dose: 10 ml Sodium Chloride ([place] Nasal [place] 0.65%) 0 ml EA NARE QIDPRN PRN PRN Reason: Nasal Congestion Temazepam (Restoril) 15 mg PO HSPRN PRN PRN Reason: Insomnia
--- NOTE | 2018-04-30 13:46 | PRG ---
DATE OF SERVICE: 04/30/2018 SUBJECTIVE: Ms. Mcpherson is doing well. No current complaints. She is scheduled for pericardial win mac late this morning. OBJECTIVE: VITAL SIGNS: Blood pressure 138/79, pulse 87, respirations 20. LUNGS: Clear to auscultation. CARDIAC: Regular rate and rhythm. ABDOMEN: Soft, nontender, nondistended. EXTREMITIES: No edema. PERTINENT LABORATORY: Hemoglobin 15.5, creatinine 0.87. IMPRESSION: 1. Pericardial effusion. 2. Status post atrial septal defect repair. 3. Previous history of pericarditis. 4. Chronic obstructive pulmonary disease. RECOMMENDATIONS: Etiology of the pericardial effusion is unknown. She does have a [id number] -sized pericardial effusion. She is scheduled for a pericardial window. We will obtain cultures and cytology. We will continue to follow with you.
[2018-04-30] MEDS ORDERED: Labetalol HCl 100 MG/20 ML VIAL ONE (13:55)
[2018-04-30] MEDS: HYDROcodone/Acetaminophen 5/325 mg Tablet PO PRN ×2 (17:04→20:57)
[2018-04-30] MEDS: Sodium Chloride 0.9% 1,000 ML IV SCH (17:05)
[2018-04-30] MEDS ORDERED: Ondansetron HCl/PF 4 MG/2 ML Vial IVP PRN (17:20)
[2018-04-30] MEDS ORDERED: Promethazine HCl 25 MG/ML VIAL IM PRN (17:20)
[2018-04-30] MEDS ORDERED: Promethazine HCl 25 MG/ML VIAL SLOW IVP PRN (17:20)
[2018-04-30] MEDS ORDERED: Fentanyl 100 MCG/2 ML VIAL SLOW IVP PRN (17:28)
[2018-04-30] MEDS: Montelukast Sodium 10 mg Tablet PO SCH (20:42)
--- NOTE | 2018-04-30 22:37 | OP ---
PREOPERATIVE DIAGNOSIS: Pericardial effusion with tamponade physiology. POSTOPERATIVE DIAGNOSIS: Minimal pericardial effusion, probably dehydration. PROCEDURE: The patient was prepped and draped. After adequate anesthesia had been obtained, an inci xin was made over the xiphoid process. The incision was carried down to the fascia where it was inc ised and blunt and sharp dissection up under the sternum was performed. Following this, the pericard ium was entered. Following this, has noted that the right ventricle was visible and it was adherent to the diaphragmatic surface of the pericardium. This was bluntly taken down with [place] on the lef t lateral side as well where a small area of free pericardial space was identified with minimal clear fluid. A 19 drain was then placed in this area. The wound was then closed in layers. MELISSA probe wa s placed showing minimal pericardial effusion.
[2018-05-01] MEDS: HYDROcodone/Acetaminophen 5/325 mg Tablet PO PRN ×4 (00:59→19:47)
[2018-05-01] MEDS: Sodium Chloride 0.9% 1,000 ML IV SCH (05:44)
--- NOTE | 2018-05-01 07:10 | PDOC.CTH ---
Cardiology Progress Note - Subjective Doing well post pericardial window - Objective Vital Signs Temp Pulse Resp BP Pulse Ox 05/01/18 04:00 97.6 F 75 20 119/70 96 05/01/18 02:58 94 L 05/01/18 02:40 85 16 95 04/30/18 23:53 97.8 F 77 16 131/79 97 04/30/18 22:14 81 16 94 L 04/30/18 20:40 97.6 F 85 18 94 L Weight 175 lb 1.883 oz 04/30/18 05/01/18 05/02/18 06:59 06:59 06:59 Intake Total 1240 1380 Output Total 212 Balance 1240 1168 - Physical Examination General/Neuro: alert & oriented x3, NAD Neck: carotid US brisk, no JVD present Lungs: other: (mild wheezing) Heart: RRR Abdomen: no HSM, NT/ND, soft Extremities: + femoral B - Labs Result Diagrams: 05/01/18 08:26 05/01/18 08:26 Troponin/CKMB CK-MB (CK-2) 1.4 ng/mL (0-6.6) 04/23/18 19:53 Troponin I Less than 0.010 ng/mL (< 0.028) 04/29/18 20:40 - Assessment/Plan 1. Pericardial effusion 2. s/p pericardial window 3. COPD 4. s/p ASD repair Window performed yesterday. Minimal fluid present. Pericardial drain in place Given recent window, recommend tele monitoring Pulmonary following No further CV recommendations
[2018-05-01] MEDS: Mometasone/Formoterol 120 PUFF INHALER INH SCH ×2 (07:32→19:08)
[2018-05-01 07:34] LABS: Legionella Urinary Ag Negative (Negative); Strep pneumo Urine Ag NEGATIVE (NEGATIVE)
[2018-05-01] MEDS: Aspirin 325 mg Enteric Coated Tablet PO SCH (08:14)
[2018-05-01] MEDS: Cefdinir 300 MG CAP PO SCH ×2 (08:14→19:48)
[2018-05-01] MEDS: predniSONE 20 MG TAB PO SCH (08:14)
[2018-05-01] MEDS: guaiFENesin ER 600 MG TAB PO SCH ×2 (08:14→19:48)
[2018-05-01] MEDS: FLUoxetine HCl 10 MG CAP PO SCH (08:14)
[2018-05-01] MEDS: Gabapentin 300 MG CAP PO SCH ×3 (08:14→19:48)
[2018-05-01] MEDS: Famotidine 20 MG TAB PO SCH ×2 (08:14→19:47)
[2018-05-01] MEDS: Enoxaparin Sodium 40 MG/0.4 ML SYRINGE SC SCH (08:14)
[2018-05-01] MEDS: Benzonatate 100 MG CAP PO SCH ×3 (08:15→19:48)
--- NOTE | 2018-05-01 08:44 | RAD ---
CHEST 1 VIEW: Date: 05/01/18 HISTORY: Respiratory distress. COMPARISON: Radiograph dated 04/25/18. FINDINGS: Worsened right middle lobe air space consolidation. There are opacities throughout the lingula and le ft lower lobe. No pneumothorax. Heart size mildly enlarged. IMPRESSION: Worsening right middle lobe air space consolidation. POS: H
[2018-05-01 09:11] LABS: Anion Gap 11 mmol/L (10-20); BUN (Urea Nitrogen) 28 mg/dL (9.8-20.1); Calc. Creatinine Clearance 85 mL/min (70-130); Calcium 8.8 mg/dL (7.8-10.44); Carbon Dioxide 33 mmol/L (23-31); Chloride 101 mmol/L (98-107); Estimated GFR-MDRD 68; Glucose 123 mg/dL (80-115); Potassium 4.3 mmol/L (3.5-5.1); Sodium 141 mmol/L (136-145)
[2018-05-01 09:54] LABS: Hemoglobin 16.3 g/dL (12.0-16.0); Mean Corpuscular HGB CONC 32.1 g/dL (32.0-36.0); Mean Corpuscular Hemoglobin 28.2 pg (27.0-31.0); Mean Corpuscular Volume 87.9 fL (78.0-98.0); Platelet Count 248 thou/uL (130-400); RBC Distribution Width 12.9 % (11.5-14.5); White Blood Cell (WBC) Count 17.9 thou/uL (4.8-10.8)
--- NOTE | 2018-05-01 09:55 | PRG ---
DATE OF SERVICE: 05/01/2018 The patient is wanting to go home. She had a pericardial window done yesterday, but had no substanti al pericardial fluid. PHYSICAL EXAMINATION: VITAL SIGNS: On exam temperature is 97.5, pulse 80, respirations 18, O2 sat 94% on 2-1/2 liters. Sh e is 88% on room air at rest. HEENT: Unremarkable. NECK: No JVD. LUNGS: Fairly clear without wheezing or rhonchi. CARDIAC: S1 and S2 regular. ABDOMEN: Soft. EXTREMITIES: No edema. Her chest x-ray shows some atelectasis in the right lung base. After the procedure yesterday she had some scattered atelectasis on the left. ASSESSMENT: 1. Chronic obstructive pulmonary disease with exacerbation. 2. Acute hypercapnic respiratory failure. 3. Atelectasis. 4. Some pulmonary edema at the time of admission, which improved. PLAN: She needs supplemental oxygen if she were to be discharged today. She is very upset that she would not be able to work with the oxygen. I told her that her employment status is not the concepcion issu e right now. Her health is my only concern. I do not think her oxygenation is going to get better w rauling. I think it will be up to 2 weeks before she is able to be off oxygen if at all. I agree wit h continuing the steroids and the breathing treatments. At the very least she could go to the medica l floor if she is not to be discharged today.
[2018-05-01 10:05] LABS: Band 9 % (5-11); Lymphocytes 6 % (21-51); MDiff Complete? YES; Neutrophil 80 % (42-75); RBC Morphology Normal; Reactive Lymphocytes 5 % (0-10)
--- NOTE | 2018-05-01 12:31 | PDOC.PN ---
- Subjective Encounter Start Date: 05/01/18 Encounter Start Time: 11:20 Subjective: awake, wants to go home -: feels better -: is on nasal canula 2 liters - Objective Resuscitation Status: Resuscitation Status FULL:Full Resuscitation MAR Reviewed: Yes Vital Signs & Weight: Vital Signs (12 hours) Temp Pulse Resp BP BP Pulse Ox 05/01/18 11:30 97.2 F L 112 H 20 116/55 L 94 L 05/01/18 10:51 98 20 93 L 05/01/18 08:00 98 F 95 18 114/80 94 L 05/01/18 07:49 97.5 F L 80 18 133/75 94 L 05/01/18 07:32 72 20 94 L 05/01/18 07:25 94 L 05/01/18 07:23 72 20 94 L 05/01/18 04:00 97.6 F 75 20 119/70 96 05/01/18 02:58 94 L 05/01/18 02:40 85 16 95 Weight Weight 175 lb 1.883 oz I&O: 04/30/18 05/01/18 05/02/18 06:59 06:59 06:59 Intake Total 1240 1380 Output Total 212 Balance 1240 1168 Result Diagrams: 05/01/18 08:26 05/01/18 08:26 Phys Exam - Physical Examination HEENT: PERRLA, moist MMs Neck: no JVD, supple Respiratory: no wheezing, no rales Cardiovascular: RRR, no significant murmur Gastrointestinal: soft, non-tender, positive bowel sounds Musculoskeletal: no edema, pulses present Neurological: non-focal, moves all 4 limbs Psychiatric: A&O x 3 Dx/Plan (1) Acute respiratory failure with hypoxia Code(s): J96.01 - ACUTE RESPIRATORY FAILURE WITH HYPOXIA Status: Resolved (2) COPD exacerbation Code(s): J44.1 - CHRONIC OBSTRUCTIVE PULMONARY DISEASE W (ACUTE) EXACERBATION Status: Acute (3) Community acquired bacterial pneumonia Code(s): J15.9 - UNSPECIFIED BACTERIAL PNEUMONIA Status: Acute (4) Anxiety and depression Code(s): F41.9 - ANXIETY DISORDER, UNSPECIFIED; F32.9 - MAJOR DEPRESSIVE DISORDER, SINGLE EPISODE, UNSPECIFIED Status: Chronic (5) Pericardial effusion Code(s): I31.3 - PERICARDIAL EFFUSION (NONINFLAMMATORY) Status: Resolved Comment: s/p drainage, low amount - Plan is on omnicef, prednisone, nebs -: to ambulate with nasal oxygen -: cm for help with setting up oxygen -: is worried will lose her job if she didn't get back to work by next week -: continue asp, neurontin and prozac * . Review of Systems - Medications/Allergies Allergies/Adverse Reactions: Allergies Allergy/AdvReac Type Severity Reaction Status Date / Time iodine Allergy Severe Anaphylaxis Verified 04/24/18 00:14 Sulfa (Sulfonamide Allergy Intermediate Rash Verified 04/24/18 00:14 Antibiotics) doxycycline Allergy cramps Verified 04/24/18 00:14 levofloxacin [From Levaquin] Allergy aches, Verified 04/24/18 00:14 itching Medications: Current Medications Acetaminophen (Tylenol) 650 mg PO Q4H PRN PRN Reason: Headache/Fever or Pain Hydrocodone Bitart/Acetaminophen ([place] 5/325) 1 tab PO Q4H PRN PRN Reason: Pain Last Admin: 05/01/18 05:59 Dose: 1 tab Al Hydroxide/Mg Hydroxide (Maalox) 15 ml PO Q4H PRN PRN Reason: Heartburn or Indigestion Albuterol/Ipratropium (Duoneb) 3 ml NEB [id number] [facility] Last Admin: 05/01/18 10:51 Dose: 3 ml Alprazolam (Xanax) 0.25 mg PO TIDPRN PRN PRN Reason: Anxiety Last Admin: 04/29/18 21:54 Dose: 0.25 mg Artificial Tears (Tears Naturale) 0 drop EA EYE PRN PRN PRN Reason: Dry Eyes Aspirin (Ecotrin) 325 mg PO DAILY [facility] Last Admin: 05/01/18 08:14 Dose: 325 mg Benzonatate (Tessalon) 100 mg PO TID [facility] Last Admin: 05/01/18 08:15 Dose: Not Given Bisacodyl (Dulcolax) 10 mg PO DAILYPRN PRN PRN Reason: Constipation Calcium Carbonate (Tums) 1,000 mg PO Q4H PRN PRN Reason: Heartburn or Indigestion Cefdinir (Omnicef) 300 mg PO BID [facility] Last Admin: 05/01/18 08:14 Dose: 300 mg Enoxaparin Sodium (Lovenox) 40 mg SC 0900 [facility] Last Admin: 05/01/18 08:14 Dose: 40 mg Famotidine (Pepcid) 20 mg PO BID [facility] Last Admin: 05/01/18 08:14 Dose: 20 mg Fentanyl (Sublimaze) 25 mcg SLOW IVP Q2H PRN PRN Reason: Pain Fluoxetine HCl (Prozac) 10 mg PO DAILY [facility] Last Admin: 05/01/18 08:14 Dose: 10 mg Gabapentin (Neurontin) 300 mg PO TID [facility] Last Admin: 05/01/18 08:14 Dose: 300 mg Guaifenesin (Robitussin Sf) 200 mg PO Q4H PRN PRN Reason: Cough Guaifenesin (Mucinex) 600 mg PO Q12HR [facility] Last Admin: 05/01/18 08:14 Dose: 600 mg Hydralazine HCl (Apresoline) 10 mg SLOW IVP Q4H PRN PRN Reason: Systolic BP > 180 Loperamide HCl (Imodium) 2 mg PO PRN PRN PRN Reason: Diarrhea/Loose Stools Loratadine (Claritin) 10 mg PO DAILYPRN PRN PRN Reason: Sinus Symptoms Magnesium Hydroxide (Milk Of Magnesium) 30 ml PO DAILYPRN PRN PRN Reason: Constipation Melatonin (Melatonin) 3 mg PO HS PRN PRN Reason: Insomnia Last Admin: 04/29/18 21:53 Dose: 3 mg Mineral Oil/White Petrolatum (Eucerin Cream) 0 gm TOP BIDPRN PRN PRN Reason: Dry Skin Mometasone Furoate/Formoterol Fumar (Dulera 200 Mcg/5 Mcg Inhaler) 2 puff INH BID-RT [facility] Last Admin: 05/01/18 07:32 Dose: 2 puff Montelukast Sodium (Singulair) 10 mg PO QPM [facility] Last Admin: 04/30/18 20:42 Dose: 10 mg Ondansetron HCl (Zofran Odt) 4 mg PO Q6H PRN PRN Reason: Nausea/Vomiting Ondansetron HCl (Zofran) 4 mg IVP Q6H PRN PRN Reason: Nausea/Vomiting Phenol (Chloraseptic [place] 180 Ml Bot) 0 ml PO PRN PRN PRN Reason: Sore Throat Prednisone (Prednisone) 40 mg PO QAM-[facility] Last Admin: 05/01/18 08:14 Dose: 40 mg Sodium Chloride (Flush - Normal Saline) 10 ml IVF Q12HR [facility] Last Admin: 05/01/18 08:15 Dose: 10 ml Sodium Chloride (Flush - Normal Saline) 10 ml IVF PRN PRN PRN Reason: Saline Flush Last Admin: 04/26/18 18:46 Dose: 10 ml Sodium Chloride ([place] Nasal [place] 0.65%) 0 ml EA NARE QIDPRN PRN PRN Reason: Nasal Congestion Temazepam (Restoril) 15 mg PO HSPRN PRN PRN Reason: Insomnia
[2018-05-01 13:09] LABS: ANA Symphony (Qualitative) Negative (Negative); dsDNA IgG Antibody 1.3 IU/mL (<10 Negative)
[2018-05-01] MEDS: Montelukast Sodium 10 mg Tablet PO SCH (19:48)
[2018-05-02] MEDS: HYDROcodone/Acetaminophen 5/325 mg Tablet PO PRN ×4 (04:09→20:14)
[2018-05-02 04:44] LABS: #Basophils 0.1 thou/uL (0.0-0.2); #Eosinphils 0.1 thou/uL (0.0-0.7); #Lymphocytes 2.5 thou/uL (1.20-3.40); #Monocytes 0.9 thou/uL (0.11-0.59); #Neutrophils 10.8 thou/uL (1.40-6.50); %Basophils 0.4 % (0.0-1.0); %Eosinophils 0.4 % (0.0-10.0); %Lymphocytes 17.3 % (21.0-51.0); %Monocytes 6.4 % (0.0-10.0); %Neutrophils 75.4 % (42.0-75.0); Hemoglobin 16.7 g/dL (12.0-16.0); Mean Corpuscular Hemoglobin 29.1 pg (27.0-31.0); Mean Corpuscular Volume 88.1 fL (78.0-98.0); Mean Platelet Volume 8.1 fL (7.4-10.4); Platelet Count 218 thou/uL (130-400); RBC Distribution Width 12.8 % (11.5-14.5); Red Blood Cell (RBC) Count 5.74 mill/uL (4.20-5.40); White Blood Cell (WBC) Count 14.3 thou/uL (4.8-10.8)
[2018-05-02 05:01] LABS: BUN (Urea Nitrogen) 24 mg/dL (9.8-20.1); Calc. Creatinine Clearance 80 mL/min (70-130); Calcium 9.4 mg/dL (7.8-10.44); Estimated GFR-MDRD 64; Glucose 105 mg/dL (80-115)
[2018-05-02 05:10] LABS: Anion Gap 15 mmol/L (10-20); Carbon Dioxide 33 mmol/L (23-31); Chloride 102 mmol/L (98-107); Potassium 4.3 mmol/L (3.5-5.1); Sodium 146 mmol/L (136-145)
[2018-05-02] MEDS: Mometasone/Formoterol 120 PUFF INHALER INH SCH ×2 (07:58→21:27)
[2018-05-02] MEDS: Gabapentin 300 MG CAP PO SCH ×3 (08:27→20:14)
[2018-05-02] MEDS: Enoxaparin Sodium 40 MG/0.4 ML SYRINGE SC SCH (08:27)
[2018-05-02] MEDS: predniSONE 20 MG TAB PO SCH (08:28)
[2018-05-02] MEDS: Benzonatate 100 MG CAP PO SCH ×2 (08:28→14:53)
[2018-05-02] MEDS: Cefdinir 300 MG CAP PO SCH ×2 (08:28→20:14)
[2018-05-02] MEDS: Aspirin 325 mg Enteric Coated Tablet PO SCH (08:28)
[2018-05-02] MEDS: FLUoxetine HCl 10 MG CAP PO SCH (08:28)
[2018-05-02] MEDS: guaiFENesin ER 600 MG TAB PO SCH ×2 (08:28→20:14)
[2018-05-02] MEDS: Famotidine 20 MG TAB PO SCH ×2 (08:28→20:14)
[2018-05-02] MEDS ORDERED: Albuterol Sulfate 2.5 mg/3 ml Neb NEB PRN (08:56)
--- NOTE | 2018-05-02 14:39 | PDOC.PN ---
- Subjective Encounter Start Date: 05/02/18 Encounter Start Time: 08:30 -: old records requested/rev Pt seen and examined, chart reviewed in its entirety, this is my first visit with this patient breathing better, but still o2 dependent, at 1 to 1.5L NC. No F/C,no cough, no sputum production, no N/V/d/c All systems reviewed and neg for all except as stated above - Objective Resuscitation Status: Resuscitation Status FULL:Full Resuscitation MAR Reviewed: Yes Vital Signs & Weight: Vital Signs (12 hours) Temp Pulse Resp BP Pulse Ox 05/02/18 14:33 100 16 91 L 05/02/18 12:00 98.8 F 101 H 20 117/70 91 L 05/02/18 10:45 82 16 92 L 05/02/18 08:00 97.9 F 72 16 92 L 05/02/18 07:55 72 16 93 L 05/02/18 07:00 97.9 F 72 18 122/65 94 L 05/02/18 05:00 98.0 F 84 16 123/76 93 L 05/02/18 02:47 71 16 92 L Weight Weight 175 lb 1.883 oz I&O: 05/01/18 05/02/18 05/03/18 06:59 06:59 06:59 Intake Total 1380 1920 Output Total 212 400 Balance 1168 1520 Result Diagrams: 05/02/18 04:04 05/02/18 04:04 Radiology Reviewed by me: Yes EKG Reviewed by me: Yes Phys Exam - Physical Examination Constitutional: NAD HEENT: PERRLA, moist MMs, sclera anicteric, oral pharynx no lesions Neck: no nodes, no JVD, supple, full ROM Respiratory: no rales, no rhonchi, clear to auscultation bilateral prolonged expiration Cardiovascular: RRR, no significant murmur, no rub Gastrointestinal: soft, non-tender, no distention, positive bowel sounds Musculoskeletal: pulses present, edema present Neurological: non-focal, normal sensation, moves all 4 limbs Lymphatic: no nodes Psychiatric: normal affect, A&O x 3 Skin: no rash, normal turgor, cap refill <2 seconds Dx/Plan (1) COPD exacerbation Code(s): J44.1 - CHRONIC OBSTRUCTIVE PULMONARY DISEASE W (ACUTE) EXACERBATION Status: Acute Comment: prednisone, nebs, abx. ambulate. wean O2 as tolerated (2) Community acquired bacterial pneumonia Code(s): J15.9 - UNSPECIFIED BACTERIAL PNEUMONIA Status: Acute (3) Sepsis Code(s): A41.9 - SEPSIS, UNSPECIFIED ORGANISM Status: Acute Qualifiers: Sepsis type: sepsis due to unspecified organism Qualified Code(s): A41.9 - Sepsis, unspecified organism Comment: with acute organ dysfunction (4) Anxiety and depression Code(s): F41.9 - ANXIETY DISORDER, UNSPECIFIED; F32.9 - MAJOR DEPRESSIVE DISORDER, SINGLE EPISODE, UNSPECIFIED Status: Chronic (5) Acute respiratory failure with hypoxia Code(s): J96.01 - ACUTE RESPIRATORY FAILURE WITH HYPOXIA Status: Acute - Plan cont current plan of care, continue antibiotics, PT/OT, respiratory therapy * .
[2018-05-02] MEDS ORDERED: Furosemide 40 MG/4 ML VIAL SLOW IVP SCH (15:45)
--- NOTE | 2018-05-02 15:45 | PRG ---
DATE OF SERVICE: 05/02/2018 SERVICE: Pulmonary Medicine. INTERVAL HISTORY: The patient tells me today that she wants to go home. This is my first time meeti ng her. She is considerably weak. She indicates that her strength is not up to baseline. She still requires a little bit of help in getting out of bed and into a chair. She also required a little bi t of help and sitting forward. Otherwise, there has been no interval change to her condition. She r emains on a little bit of oxygen. That being said, her oxygen requirements are slowly improving. OBJECTIVE: VITAL SIGNS: Afebrile, pulse 100, blood pressure 117/70, respirations 16, saturation 91% on 2 liters nasal cannula. GENERAL: The patient is awake, alert, no apparent distress. LUNGS: There is really quite good air entry. That being said, she demonstrates both crackles and rh onchi. There is a little bit of a prolonged expiratory phase, but I do not appreciate any overt whee zing. HEART: Tachycardic. Regular. ABDOMEN: Soft, nontender, nondistended. Bowel sounds are positive. MUSCULOSKELETAL: No cyanosis or clubbing. There is trace to 1+ pitting in the bilateral lower extre mities. NEUROLOGIC: Grossly nonfocal. LABORATORY DATA: WBC 14.3 and gently down trending, hemoglobin 16.7, platelets 218,000. Sodium 146. Basic metabolic profile is otherwise unremarkable. Respiratory virus panel was positive for parain fluenza 3. Urine culture and blood cultures are negative to date. ASSESSMENT: 1. Acute hypoxic and hypercapnic respiratory failure. 2. Chronic obstructive pulmonary disease with acute exacerbation, suspected. 3. Community-acquired pneumonia, likely secondary to parainfluenza virus. 4. Atelectasis of the right mid lung zone. DISCUSSION AND PLAN: The patient is stable for transition out of the hospital from purely respirator y perspective, but I fear that she is not quite strong enough to go home safely. We can transition h er to the medical unit. If she gets up and about more under her own strength, I think it would be re asonable for her to go home in 24 hours. Pulmonary Critical Care will continue to follow for the julissa e being. We will give her a touch of free water as we continue to diurese her down to euvolemia.
[2018-05-02] MEDS: ALPRAZolam 0.25 MG TAB PO PRN (15:59)
[2018-05-02] MEDS: Dextrose 5% in Water 1,000 ML IV SCH (16:00)
[2018-05-02] MEDS: Montelukast Sodium 10 mg Tablet PO SCH (20:14)
[2018-05-03] MEDS: HYDROcodone/Acetaminophen 5/325 mg Tablet PO PRN ×2 (00:24→06:51)
[2018-05-03] MEDS: Dextrose 5% in Water 1,000 ML IV SCH ×2 (04:25→12:30)
[2018-05-03] MEDS ORDERED: Furosemide 40 MG/4 ML VIAL SLOW IVP SCH (06:00)
[2018-05-03] MEDS: Mometasone/Formoterol 120 PUFF INHALER INH SCH (07:03)
[2018-05-03] MEDS: Famotidine 20 MG TAB PO SCH (08:34)
[2018-05-03] MEDS: Gabapentin 300 MG CAP PO SCH (08:35)
[2018-05-03] MEDS: predniSONE 20 MG TAB PO SCH (08:35)
[2018-05-03] MEDS: Cefdinir 300 MG CAP PO SCH (08:35)
[2018-05-03] MEDS: Aspirin 325 mg Enteric Coated Tablet PO SCH (08:35)
[2018-05-03] MEDS: guaiFENesin ER 600 MG TAB PO SCH (08:35)
[2018-05-03] MEDS: Enoxaparin Sodium 40 MG/0.4 ML SYRINGE SC SCH (08:36)
[2018-05-03] MEDS: FLUoxetine HCl 10 MG CAP PO SCH (08:36)
--- NOTE | 2018-05-03 12:05 | DIS ---
DATE OF ADMISSION: 04/24/2018 DATE OF DISCHARGE: 05/03/2018 PRIMARY CARE PHYSICIAN: Rae Benson M.D. PRIMARY ROSS FURNACE OPERATOR: Alan Peoples M.D. DISCHARGE DIAGNOSES: 1. Community-acquired pneumonia. 2. Acute hypoxemic respiratory failure. 3. Acute exacerbation of chronic obstructive pulmonary disease. 4. Pericardial effusion, noninflammatory. 5. Anxiety and depression. 6. Sepsis, present on admission, resolved. 7. Community-acquired pneumonia, bacterial pneumonia, unspecified organism present on admission. CONSULTATIONS: 1. Pulmonary Critical Care, Dr. Alan Peoples. 2. Cardiology, Dr. Sb Armijo and Dr. Subhash Fernandez. 3. Cardiothoracic Surgery, Dr. Alf Vargas, 04/29/2018. PROCEDURES: Operating room visit for possible pericardial window and MELISSA. HISTORY AND PHYSICAL: Ms. Mcpherson is a 62-year-old female, who presented to the Emergency Department with shortness of breath. She was found to meet sepsis criteria, have community-acquired pneumonia and a COPD exacerbation with acute hypoxemia, was placed in admission status. HOSPITAL COURSE: The patient was admitted by Dr. Noe Hogan and followed initially by Dr. Singh hernandez nd then Dr. Goldberg until 05/01. She was given nebulizer treatments, antibiotics, steroids in ta pering dose and slowly improved. She is still requiring oxygen. She was set up for home oxygen in c ase she needed it, but was unable to wean off by 05/03 and was discharged home on 1.5 liters constant ly until she did not require them. Due to the pericardial effusion seen on echocardiogram, Cardiology was consulted and recommended CT S urgery to evaluate. The patient was seen by Dr. Vargas. We did take her to the operating room on , but found minimal pericardial effusion with some adherent pericardium to the right ventricle, [facility] and a MELISSA was done and was unremarkable. The patient did well and was stable for discharge. PHYSICAL EXAMINATION: The patient was seen and examined on the day of discharge. Discharge plan and disposition discussed with the patient [id number] at the bedside. DISCHARGE MEDICATIONS: 1. Albuterol sulfate HFA 2 puffs inhaled q.6 hours p.r.n. 2. Omnicef 300 mg p.o. b.i.d. 3. DuoNeb 3 mL q.i.d. 4. Singulair 10 mg p.o. q.p.m. 5. Prednisone 10 mg p.o. t.i.d. tapering. 6. Aspirin 325 mg daily. 7. Fluoxetine 10 mg daily. 8. Gabapentin 300 mg p.o. t.i.d. 9. Lasix 40 mg daily. 10. Dulera 200/5, two puffs inhaled daily. FOLLOWUP APPOINTMENTS: 1. Primary care physician within a week. 2. Dr. Alan Peoples in 1-2 weeks. DISCHARGE ACTIVITY: Per cardiopulmonary limits. DISCHARGE DIET: Heart healthy recommended. DISCHARGE CONDITION: Stable. DISPOSITION: Being discharged home via private vehicle with home oxygen.
[2018-05-03 12:21] VITALS: BP 125/78; TEMP 98.1
== END 2018-05-03 13:42 | disposition home or self-care (01) | DRG 853 ==
LOC: ERS 19:31 → T4-A 23:27 → IMCU/EMU 04-25 00:46 → T4-A 04-28 09:48 → IMCU/EMU 04-29 19:35 → SURG A 05-02 18:19
PROVIDERS: ADMIT Internal Medicine; ATTEND Internal Medicine
PROC: 5A09357 Assistance with Respiratory Ventilation, Less than 24 Consecutive Hours, Continuous Positive Airway Pressure (ICD-10-PCS; principal; 2018-04-25)
PROC: 0W9D00Z Drainage of Pericardial Cavity with Drainage Device, Open Approach (ICD-10-PCS; 2018-05-01)
DX: A41.9 Sepsis, unspecified organism (principal); J96.01 Acute respiratory failure with hypoxia; J96.02 Acute respiratory failure with hypercapnia; J12.2 Parainfluenza virus pneumonia; J44.1 Chronic obstructive pulmonary disease with (acute) exacerbation; E87.0 Hyperosmolality and hypernatremia; I31.4 Cardiac tamponade; I31.3 Pericardial effusion (noninflammatory); J44.0 Chronic obstructive pulmonary disease with (acute) lower respiratory infection; E86.0 Dehydration; R65.20 Severe sepsis without septic shock; F41.8 Other specified anxiety disorders; Z87.891 Personal history of nicotine dependence; Z86.79 Personal history of other diseases of the circulatory system; Z88.2 Allergy status to sulfonamides; Z88.1 Allergy status to other antibiotic agents; Z91.041 Radiographic dye allergy status
CPT/HCPCS: 36415; 71045; 80048; 80053; 81003; 81015; 82550; 82553; 82805; 83605; 83735; 83880; 84100; 84484; 85025; 85379; 86038; 86225; 87040; 87086; 87389; 87633; 87899; 93005; 93010; 93306; 94002; 94640; 94660; 96361; 96365; 96375; A4216; G8978-GP-CK; G8979-GP-CJ; J0131; J0456; J0696; J1642; J1650; J1940; J2250; J2270; J2920; J2930; J3010; J7050; J7506; J7620

== ENCOUNTER 2018-05-12 16:18 | Outpatient (CLI) | payer BC ==
--- NOTE | 2018-05-12 18:16 | ULT ---
VENOUS DOPPLER ULTRASOUND OF THE LEFT LOWER EXTREMITY: 05/12/18 HISTORY: Left lower extremity edema. TECHNIQUE: Yost scale, color flow and spectral doppler imaging of the deep venous system of the left lower extre mity was performed. FINDINGS: There is absence of flow and compression in the left popliteal vein extending into the posterior tibi al vein in the proximal end. The remainder of the deep venous system is patent without thrombosis. IMPRESSION: Deep venous thrombosis in the left lower extremity. Findings were discussed over the telephone with Dr. Rae Benson at 4:52 p.m. POS: [facility]
== END 2018-05-12 16:19 | disposition home or self-care (01) ==
LOC: ULT 16:18
PROVIDERS: ATTEND Family Medicine
DX: R60.0 Localized edema (principal); I82.402 Acute embolism and thrombosis of unspecified deep veins of left lower extremity

== ENCOUNTER 2018-05-12 16:59 | Emergency (ER) | payer BC ==
[2018-05-12 17:35] LABS: #Eosinphils 0.1 thou/uL (0.0-0.7); #Lymphocytes 1.8 thou/uL (1.20-3.40); #Monocytes 0.7 thou/uL (0.11-0.59); #Neutrophils 9.5 thou/uL (1.40-6.50); %Basophils 0.4 % (0.0-1.0); %Eosinophils 0.6 % (0.0-10.0); %Lymphocytes 14.9 % (21.0-51.0); %Monocytes 5.6 % (0.0-10.0); %Neutrophils 78.5 % (42.0-75.0); Hemoglobin 16.9 g/dL (12.0-16.0); Mean Corpuscular HGB CONC 33.5 g/dL (32.0-36.0); Mean Corpuscular Hemoglobin 29.4 pg (27.0-31.0); Mean Corpuscular Volume 87.6 fL (78.0-98.0); Mean Platelet Volume 8.2 fL (7.4-10.4); Platelet Count 182 thou/uL (130-400); RBC Distribution Width 13.6 % (11.5-14.5); Red Blood Cell (RBC) Count 5.76 mill/uL (4.20-5.40); White Blood Cell (WBC) Count 12.1 thou/uL (4.8-10.8)
[2018-05-12] MEDS ORDERED: Rivaroxaban 15 MG TAB PO SCH (17:45)
[2018-05-12 17:47] LABS: INR-International Normal Ratio 0.9; PTT 22.1 SEC (22.9-36.1); Prothrombin Time 12.6 SEC (12.0-14.7)
[2018-05-12 18:00] LABS: ALT (SGPT) 87 U/L (8-55); AST (SGOT) 54 U/L (5-34); Albumin 3.7 g/dL (3.4-4.8); Alkaline Phosphatase 125 U/L (40-150); Anion Gap 16 mmol/L (10-20); BUN (Urea Nitrogen) 24 mg/dL (9.8-20.1); Bilirubin, Total 0.4 mg/dL (0.2-1.2); CK (CPK) 70 U/L (29-168); Calc. Creatinine Clearance 0 mL/min (70-130); Carbon Dioxide 27 mmol/L (23-31); Chloride 100 mmol/L (98-107); Estimated GFR-MDRD 52; Globulin 3.2 g/dL (2.4-3.5); Glucose 115 mg/dL (80-115); Potassium 4.6 mmol/L (3.5-5.1); Protein, Total 6.9 g/dL (6.0-8.3); Sodium 138 mmol/L (136-145)
[2018-05-12 18:02] LABS: CKMB 2.7 ng/mL (0-6.6); Troponin I 0.032 ng/mL (< 0.028)
== END 2018-05-12 17:48 | disposition home or self-care (01) ==
LOC: ERS 16:59
DX: I82.402 Acute embolism and thrombosis of unspecified deep veins of left lower extremity (principal); J44.9 Chronic obstructive pulmonary disease, unspecified; Z87.891 Personal history of nicotine dependence; Z79.899 Other long term (current) drug therapy
CPT/HCPCS: 36415; 80053; 82553; 84484; 85025; 85610; 85730; 94760

== ENCOUNTER 2018-06-17 20:26 | Emergency (ER) | payer BC ==
--- NOTE | 2018-06-17 23:02 | ULT ---
DOPPLER VENOUS ULTRASOUND OF THE LEFT LOWER EXTREMITY: 06/17/18 INDICATION: Left lower extremity pain and edema. TECHNIQUE: Yost scale, color doppler and vascular duplex with spectral analysis was performed of the deep venous structures of the left lower extremity. Common femoral vein, superficial femoral vein, popliteal vei n, posterior tibial vein, proximal greater saphenous and profunda veins were assessed. FINDINGS: There is a near complete occlusive thrombus within the left proximal posterior tibial vein and distal left popliteal vein. The remaining deep venous segments of the left lower extremity demonstrate a no rmal compression, flow, and augmentation. IMPRESSION: Nearly occlusive deep venous thrombosis within the proximal left posterior tibial vein and left dista l popliteal vein. POS: [facility]
[2018-06-17 23:43] LABS: #Basophils 0.1 thou/uL (0.0-0.2); #Eosinphils 0.2 thou/uL (0.0-0.7); #Monocytes 0.7 thou/uL (0.11-0.59); #Neutrophils 4.5 thou/uL (1.40-6.50); %Basophils 0.7 % (0.0-1.0); %Eosinophils 2.2 % (0.0-10.0); %Lymphocytes 26.8 % (21.0-51.0); %Monocytes 9.3 % (0.0-10.0); Hemoglobin 15.4 g/dL (12.0-16.0); Mean Corpuscular HGB CONC 35.2 g/dL (32.0-36.0); Mean Corpuscular Hemoglobin 31.1 pg (27.0-31.0); Mean Corpuscular Volume 88.3 fL (78.0-98.0); Mean Platelet Volume 8.3 fL (7.4-10.4); Platelet Count 231 thou/uL (130-400); RBC Distribution Width 13.8 % (11.5-14.5); Red Blood Cell (RBC) Count 4.95 mill/uL (4.20-5.40); White Blood Cell (WBC) Count 7.3 thou/uL (4.8-10.8)
[2018-06-17 23:51] LABS: INR-International Normal Ratio 1.6; PTT 35.1 SEC (22.9-36.1); Prothrombin Time 18.9 SEC (12.0-14.7)
[2018-06-18 00:04] LABS: ALT (SGPT) 13 U/L (8-55); AST (SGOT) 18 U/L (5-34); Albumin 3.9 g/dL (3.4-4.8); Alkaline Phosphatase 92 U/L (40-150); Anion Gap 13 mmol/L (10-20); BUN (Urea Nitrogen) 16 mg/dL (9.8-20.1); Bilirubin, Total 0.6 mg/dL (0.2-1.2); Calc. Creatinine Clearance 0 mL/min (70-130); Calcium 10.3 mg/dL (7.8-10.44); Carbon Dioxide 25 mmol/L (23-31); Chloride 109 mmol/L (98-107); Estimated GFR-MDRD 58; Globulin 3.3 g/dL (2.4-3.5); Glucose 119 mg/dL (80-115); Potassium 3.8 mmol/L (3.5-5.1); Protein, Total 7.2 g/dL (6.0-8.3); Sodium 143 mmol/L (136-145)
== END 2018-06-18 00:26 | disposition home or self-care (01) ==
LOC: ERS 20:26
DX: I82.402 Acute embolism and thrombosis of unspecified deep veins of left lower extremity (principal); J44.9 Chronic obstructive pulmonary disease, unspecified; Z87.891 Personal history of nicotine dependence; Z79.899 Other long term (current) drug therapy
CPT/HCPCS: 36415; 80053; 85025; 85610; 85730; 94640; J7620

== ENCOUNTER 2018-10-11 01:21 | Inpatient (IN) | payer BC ==
[2018-10-11] MEDS ORDERED: Azithromycin 500 MG VIAL ONE (01:53)
[2018-10-11] MEDS ORDERED: methylPREDNISolone Sod Succ/PF 125 MG/2 ML VIAL ONE (01:53)
[2018-10-11 02:06] LABS: #Lymphocytes 1.2 thou/uL (1.20-3.40); #Monocytes 0.9 thou/uL (0.11-0.59); #Neutrophils 7.2 thou/uL (1.40-6.50); %Basophils 0.3 % (0.0-1.0); %Eosinophils 0.4 % (0.0-10.0); %Monocytes 9.6 % (0.0-10.0); %Neutrophils 76.7 % (42.0-75.0); Hemoglobin 18.2 g/dL (12.0-16.0); Mean Corpuscular HGB CONC 33.7 g/dL (32.0-36.0); Mean Corpuscular Hemoglobin 29.5 pg (27.0-31.0); Mean Corpuscular Volume 87.5 fL (78.0-98.0); Mean Platelet Volume 9.2 fL (7.4-10.4); Platelet Count 207 thou/uL (130-400); RBC Distribution Width 13.4 % (11.5-14.5); Red Blood Cell (RBC) Count 6.16 mill/uL (4.20-5.40); White Blood Cell (WBC) Count 9.4 thou/uL (4.8-10.8)
[2018-10-11 02:29] LABS: INR-International Normal Ratio 1.6; PTT 35.3 SEC (22.9-36.1); Prothrombin Time 19.2 SEC (12.0-14.7)
[2018-10-11 02:30] LABS: D-Dimer Test 0.55 *mcg/mL (0.27-0.43)
[2018-10-11 02:33] LABS: ALT (SGPT) 16 U/L (8-55); AST (SGOT) 17 U/L (5-34); Albumin 3.7 g/dL (3.4-4.8); Alkaline Phosphatase 90 U/L (40-150); Anion Gap 15 mmol/L (10-20); BUN (Urea Nitrogen) 16 mg/dL (9.8-20.1); Bilirubin, Total 0.4 mg/dL (0.2-1.2); Calc. Creatinine Clearance 0 mL/min (70-130); Calcium 9.4 mg/dL (7.8-10.44); Carbon Dioxide 26 mmol/L (23-31); Chloride 104 mmol/L (98-107); Estimated GFR-MDRD 49; Globulin 3.5 g/dL (2.4-3.5); Glucose 162 mg/dL (80-115); Potassium 3.8 mmol/L (3.5-5.1); Protein, Total 7.2 g/dL (6.0-8.3); Sodium 141 mmol/L (136-145)
[2018-10-11 02:42] LABS: Troponin I Less than 0.010 ng/mL (< 0.028)
[2018-10-11] MEDS ORDERED: Mag-Al 1200 mg/1200 mg/30 ML UDCUP ONE (03:11)
[2018-10-11] MEDS ORDERED: Lidocaine Viscous Sol 2% 15 ml UD Cup ONE (03:11)
[2018-10-11] MEDS ORDERED: cefTRIAXone\\ROCEPHIN 1 GM VIAL ONE (03:27)
[2018-10-11] MEDS ORDERED: Magnesium 2 GM/50 ML BAG (IN WATER) ONE (03:27)
[2018-10-11 04:59] LABS: Bilirubin Negative (Negative); Blood, Urine Negative (Negative); Clarity CLEAR (Clear); Glucose, Urine (Dipstick) Negative (Negative); Leukocyte Negative (Negative); Nitrite Negative (Negative); Protein, Urine (Dipstick) Negative (Neg-Trace); Specific Gravity, Urine 1.008 (1.002-1.036); pH, Urine 5.5 (5.0-9.0)
[2018-10-11] MEDS ORDERED: Acetaminophen 325 MG TAB PO PRN (07:49)
[2018-10-11] MEDS ORDERED: Ondansetron PF 4 MG/2 ML Vial IVP PRN (07:49)
[2018-10-11] MEDS ORDERED: Senokot S 8.6-50 MG TAB PO PRN (07:49)
[2018-10-11] MEDS ORDERED: Sodium Chloride 0.65% Nasal 44 ML BOT EA NARE PRN (07:49)
[2018-10-11] MEDS ORDERED: Loratadine 10 MG TAB PO PRN (07:49)
[2018-10-11] MEDS ORDERED: Zolpidem Tartrate 5 MG TAB PO PRN (07:49)
[2018-10-11] MEDS ORDERED: Calcium Carbonate 500 MG ChewTAB PO PRN (07:49)
[2018-10-11] MEDS ORDERED: Artificial Tears 18 DROP/0.9 ML EA EYE PRN (07:49)
[2018-10-11] MEDS ORDERED: HYDROcodone/Acetaminophen 5/325 mg Tablet PO PRN (07:49)
[2018-10-11] MEDS ORDERED: Loperamide HCl 2 MG CAP PO PRN (07:49)
[2018-10-11] MEDS ORDERED: Eucerin (Mineral Oil/Petrolatum,White) 30 gm Jar TOP PRN (07:49)
[2018-10-11] MEDS ORDERED: Cepastat Lozenges 1 LOZ PO PRN ×2 (07:49→16:56)
[2018-10-11] MEDS ORDERED: Ondansetron ODT 4 MG TAB PO PRN (07:49)
[2018-10-11] MEDS ORDERED: Bisacodyl 5 MG TAB PO PRN (07:49)
[2018-10-11] MEDS ORDERED: Bisacodyl 10 MG SUPP PR PRN (07:49)
[2018-10-11] MEDS ORDERED: hydrALAZINE 20 MG/ML VIAL SLOW IVP PRN (07:49)
[2018-10-11] MEDS ORDERED: Diabetic Tussin 200 MG/10 ML UDCUP PO PRN (07:49)
[2018-10-11] MEDS ORDERED: Enoxaparin Sodium 40 MG/0.4 ML SYRINGE SC SCH (09:00)
[2018-10-11] MEDS ORDERED: Enoxaparin Sodium 40 MG/0.4 ML SYRINGE ONE (10:37)
--- NOTE | 2018-10-11 10:42 | RAD ---
PA AND LATERAL CHEST: INDICATIONS: Fever. Cough. Dyspnea. COMPARISON: 10/07/2017 FINDINGS: There is cardiomegaly, pulmonary vascular congestion, and perihilar edema. No pleural effusion is ev ident. There is spondylosis. There is post CABG change. IMPRESSION: Findings of mild congestive heart failure. POS: [facility]
[2018-10-11] MEDS: Cefepime 2 GM in Sodium Chloride 0.9% 100 ML IVPB SCH ×2 (14:48→21:59)
[2018-10-11] MEDS: FLUoxetine HCl 10 MG CAP PO SCH (14:49)
[2018-10-11] MEDS: guaiFENesin ER 600 MG TAB PO SCH ×2 (14:49→22:00)
[2018-10-11] MEDS: Saccharomyces boulardii 250 MG CAP PO SCH (14:49)
[2018-10-11] MEDS: ALPRAZolam 0.25 MG TAB PO PRN (14:57)
[2018-10-11] MEDS: Gabapentin 300 MG CAP PO SCH ×2 (14:57→21:59)
[2018-10-11 15:16] VITALS: BMI 29.5
[2018-10-11] MEDS: Rivaroxaban 10 MG TAB PO SCH (16:15)
[2018-10-11] MEDS ORDERED: Chloraseptic Spray 180 ml Bottle PO PRN (16:56)
[2018-10-11] MEDS: Mometasone/Formoterol 120 PUFF INHALER INH SCH (18:45)
[2018-10-11] MEDS: Montelukast Sodium 10 mg Tablet PO SCH (21:59)
[2018-10-12] MEDS: Azithromycin 500 MG in Sodium Chloride 0.9% 250 ML 250 ML IVPB SCH (02:07)
[2018-10-12 05:17] LABS: #Lymphocytes 0.6 thou/uL (1.20-3.40); #Monocytes 0.4 thou/uL (0.11-0.59); #Neutrophils 10.9 thou/uL (1.40-6.50); %Basophils 0.1 % (0.0-1.0); %Eosinophils 0.1 % (0.0-10.0); %Lymphocytes 5.1 % (21.0-51.0); %Monocytes 3.2 % (0.0-10.0); %Neutrophils 91.4 % (42.0-75.0); Hemoglobin 16.4 g/dL (12.0-16.0); Mean Corpuscular Hemoglobin 29.7 pg (27.0-31.0); Mean Corpuscular Volume 89.9 fL (78.0-98.0); Mean Platelet Volume 9.2 fL (7.4-10.4); Platelet Count 218 thou/uL (130-400); RBC Distribution Width 13.4 % (11.5-14.5); Red Blood Cell (RBC) Count 5.51 mill/uL (4.20-5.40); White Blood Cell (WBC) Count 11.9 thou/uL (4.8-10.8)
[2018-10-12 05:43] LABS: ALT (SGPT) 14 U/L (8-55); AST (SGOT) 13 U/L (5-34); Albumin 3.2 g/dL (3.4-4.8); Alkaline Phosphatase 77 U/L (40-150); Anion Gap 10 mmol/L (10-20); BUN (Urea Nitrogen) 19 mg/dL (9.8-20.1); Bilirubin, Total 0.3 mg/dL (0.2-1.2); Calc. Creatinine Clearance 84 mL/min (70-130); Calcium 9.2 mg/dL (7.8-10.44); Carbon Dioxide 25 mmol/L (23-31); Chloride 112 mmol/L (98-107); Estimated GFR-MDRD 69; Globulin 2.9 g/dL (2.4-3.5); Glucose 152 mg/dL (80-115); Potassium 4.2 mmol/L (3.5-5.1); Protein, Total 6.1 g/dL (6.0-8.3); Sodium 143 mmol/L (136-145)
--- NOTE | 2018-10-12 07:49 | HP ---
PRIMARY CARE PHYSICIAN: Rae Benson MD REASON FOR ADMISSION: Acute respiratory failure with hypoxia, community-acquired pneumonia, COPD exacerbation, and sepsis. HISTORY OF PRESENT ILLNESS: A 62-year-old female, who has underlying history of chronic obstructive pulmonary disease, who is sick for about one week. She started symptoms with cough, productive of sputum without any hemoptysis and increasing dyspnea. She denies any prior upper respiratory infection. She denies any sick exposure or recent travel. She is also up to date in her flu vaccination this year. She also reports that pneumonia vaccine she is going to get end of October through her primary care physician. The patient saw her primary care physician after few days of illness and the patient was prescribed Augmentin and Medrol Dosepak. She took those medication for four days and three days medication left, but she was not feeling better. Last night, her oxygen saturation was not keeping up, despite her nebulizer therapy and her home medication. Her saturation was remaining in 80 to 85, and that is why she called paramedics and the patient was brought to emergency room for evaluation. The patient was having fever on and off at home. She was feeling weak and dizzy. She denies any body ache or malaise. She denies any constipation, diarrhea, or UTI symptoms. She denies any abdominal pain, but because of coughing spells, she was feeling exhausted. In the emergency room, the patient was saturating 85% on oxygen. She required face mask oxygen and after that she was saturating normal. She was tachycardic and febrile. In the emergency room, the patient has received Rocephin, azithromycin, Solu-Medrol, DuoNeb therapy and subsequently, the patient is being admitted to telemetry floor. REVIEW OF SYSTEMS: CONSTITUTIONAL: Negative for weight loss or gain, ability to conduct usual activities. SKIN: Negative for rash, itching. EYES: Negative for double vision, pain. ENT/MOUTH: Negative for nose bleeding, neck stiffness, pain, tenderness. CARDIOVASCULAR: Negative for palpitations, dyspnea on exertion, orthopnea. RESPIRATORY: Negative for shortness of breath, wheezing, cough, hemoptysis, fever or night sweats. GASTROINTESTINAL: Negative for poor appetite, abdominal pain, heartburn, nausea, vomiting, constipation, or diarrhea. GENITOURINARY: Negative for urgency, frequency, dysuria, nocturia. MUSCULOSKELETAL: Negative for pain, swelling. NEUROLOGIC/PSYCHIATRIC: Negative for anxiety, depression. ALLERGY/IMMUNOLOGIC: Negative for skin rash, bleeding tendency. All review of systems reviewed with the patient and negative except as mentioned in the HPI. PAST MEDICAL HISTORY: History of pericardial effusion, requiring pericardiocentesis; history of ASD repair; chronic low back pain; history of alcoholism in the past and she quit drinking in 1992; chronic obstructive pulmonary disease; former smoker. PAST SURGICAL HISTORY: ASD repair, cholecystectomy, abdominal hysterectomy, appendicectomy, bladder surgery, and eye surgery. PAST PSYCHIATRIC HISTORY: Insomnia, anxiety, and depression. ALLERGIES: THE PATIENT IS ALLERGIC TO SULFA DRUGS, DOXYCYCLINE, LEVOFLOXACIN, AND CONTRAST MEDIA. FAMILY HISTORY: Father from lung cancer. No family history of coronary artery disease or stroke. SOCIAL HISTORY: The patient is a former smoker. She quit smoking in 2015. She is former alcoholic and she quit drinking alcohol in 1992. She is and she has two kids. She does not have any oxygen and she is able to do all daily activities of routine life. 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 CURRENT HOME MEDICATIONS: Aspirin 325 mg p.o. daily, Prozac 10 mg daily, gabapentin 300 mg t.i.d., Dulera two puffs inhalation b.i.d., Ventolin 2 puffs q.6 hours p.r.n., Lasix 40 mg daily, DuoNeb q.6 hours, Singulair 10 mg p.o. daily. EMERGENCY ROOM COURSE: The patient has received magnesium sulfate 2 g, IV fluid, Rocephin, azithromycin, Solu-Medrol, GI cocktail, DuoNeb therapy several times. PHYSICAL EXAMINATION: VITAL SIGNS: On arrival, blood pressure 142/84, pulse 127, respiratory rate 28, temperature 100.1, and saturation 88% on room air. Weight 79.8 kg. GENERAL: The patient is currently alert and awake, in mild respiratory distress. HEENT: Head, normocephalic and atraumatic. Eyes, pupils are round and reactive to light. Extraocular muscle are intact. ENT, oropharynx within normal limits. No pharyngeal erythema. No exudate. NECK: Supple. No JVD. No thyromegaly. No carotid bruit. No meningeal signs of irritation. LUNGS: Bilateral wheezing is present. A few scattered rales present. No accessory muscles of respiration in use. Pursed lip breathing noted. CARDIAC: S1 and S2, regular, tachycardia. No gross murmur noted. No gallop. No rub. ABDOMEN: Soft. Bowel sounds present. Obesity present. No suprapubic tenderness. No peritoneal signs. No guarding. No rigidity. No rebound. BACK: Examination unremarkable. No CVA tenderness. EXTREMITIES: Upper extremity, passive movement of all joints is normal. Lower extremity, no edema, good distal pulsation. SKIN: No skin rash. HEMATOLOGIC: No lymphadenopathy. PSYCHIATRIC: Normal affect. SIGNIFICANT LABORATORY DATA: EKG showing sinus tachycardia, premature atrial complexes, RVH. Chest x-ray showing bilateral infiltrates, more on the right side. COPD type of changes. CBC; WBC 9.4, hemoglobin 18.2, and platelet 207. INR 1.6. D-dimer 0.55. Sodium 141, potassium 3.8, chloride 104, carbon dioxide 26, BUN 16, creatinine 1.11, glucose 162, calcium 9.4. Lactic acid 1.9. LFT; AST 17, ALT 16, alkaline phosphatase 90, albumin 3.7. CK-MB 1.0, troponin I less than 0.010. Urinalysis normal. ASSESSMENT AND PLAN: Impression: 1. Acute respiratory failure with hypoxia, likely secondary to underlying community-acquired pneumonia as well as chronic obstructive pulmonary disease exacerbation. This patient does not have any oxygen at home. Currently, saturating 88% on room air. This patient will need underlying treatment for chronic obstructive pulmonary disease and pneumonia and we will reassess her oxygen saturation. 2. Community-acquired pneumonia, likely bacterial. Given underlying presence of chronic obstructive pulmonary disease, underlying gram-negative liv and gram-positive cocci, like Streptococcus is suspected, the patient will be given cefepime 2 g IV q.12 hours and azithromycin 500 mg IV daily while in hospital, Mucinex 600 mg twice daily. The patient will be given pneumonia shot if she is agreeable. 3. Chronic obstructive pulmonary disease exacerbation. DuoNeb q.4 hours, Dulera two puff inhalation b.i.d., along with empiric antibiotic therapy with azithromycin. Also continue Solu-Medrol 40 mg IV q.6 hours, Singulair 10 mg p.o. daily. We will monitor clinical response. Oxygen will be given to keep saturation above 92%. 4. Sepsis with acute organ dysfunction, likely due to underlying pneumonia. The patient has an associated respiratory failure with hypoxia. The patient is already on broad-spectrum antibiotic therapy. 5. Anxiety and depression. We will continue Prozac 10 mg p.o. daily. 6. Chronic low back pain. We will continue gabapentin 300 mg t.i.d. 7. Deep vein thrombosis prophylaxis, Lovenox 40 mg subcu daily. GI prophylaxis, Protonix 40 mg p.o. daily. 8. Code status: The patient is full code. The patient's is surrogate decision maker. 9. Disposition plan: Based on clinical course, we are expecting the patient's stay in hospital for more than two midnights. Plan of care discussed with the patient in detail. Job ID: [id number]
[2018-10-12] MEDS: Mometasone/Formoterol 120 PUFF INHALER INH SCH ×2 (08:00→18:21)
[2018-10-12] MEDS: Gabapentin 300 MG CAP PO SCH ×3 (09:26→21:06)
[2018-10-12] MEDS: Saccharomyces boulardii 250 MG CAP PO SCH (09:26)
[2018-10-12] MEDS: FLUoxetine HCl 10 MG CAP PO SCH (09:26)
[2018-10-12] MEDS: guaiFENesin ER 600 MG TAB PO SCH ×2 (09:27→21:07)
[2018-10-12] MEDS: Cefepime 2 GM in Sodium Chloride 0.9% 100 ML IVPB SCH ×2 (09:29→21:03)
--- NOTE | 2018-10-12 11:05 | PDOC.PN ---
- Subjective Encounter Start Date: 10/12/18 Encounter Start Time: 08:20 Patient seen and examined. No overnight events she still dyspnea, needs 4 liter nasal canula oxygen, she wants to go home - Objective Resuscitation Status - Order Detail: 10/11/18 07:43 Resuscitation Status Routine Resuscitation Status: FULL: Full Resuscitation MAR Reviewed: Yes Vital Signs & Weight: Vital Signs (12 hours) Temp Pulse Resp BP Pulse Ox 10/12/18 08:00 97.8 F 89 18 130/60 90 L 10/12/18 07:58 112 H 20 94 L 10/12/18 03:51 97.6 F 100 23 H 110/56 L 92 L 10/12/18 02:21 111 H 20 92 L 10/12/18 00:37 98.0 F 100 22 H 126/56 L 90 L Weight Weight 171 lb 12.8 oz I&O: 10/11/18 10/12/18 10/13/18 06:59 06:59 06:59 Intake Total 1280 Output Total 600 Balance 680 Result Diagrams: 10/12/18 04:38 10/12/18 04:38 EKG Reviewed by me: Yes (nsr) Phys Exam - Physical Examination Constitutional: NAD HEENT: PERRLA, moist MMs, sclera anicteric Neck: no JVD, supple Respiratory: wheezing present scattered rales+ Cardiovascular: RRR, no significant murmur, no rub Gastrointestinal: soft, non-tender, no distention, positive bowel sounds Musculoskeletal: no edema, pulses present Neurological: non-focal, normal sensation Lymphatic: no nodes Psychiatric: normal affect, A&O x 3 Skin: no rash, normal turgor Dx/Plan (1) Acute respiratory failure with hypoxia Code(s): J96.01 - ACUTE RESPIRATORY FAILURE WITH HYPOXIA Status: Acute (2) COPD exacerbation Code(s): J44.1 - CHRONIC OBSTRUCTIVE PULMONARY DISEASE W (ACUTE) EXACERBATION Status: Acute Comment: (3) Community acquired bacterial pneumonia Code(s): J15.9 - UNSPECIFIED BACTERIAL PNEUMONIA Status: Acute (4) Sepsis Code(s): A41.9 - SEPSIS, UNSPECIFIED ORGANISM Status: Acute Qualifiers: Sepsis type: sepsis due to unspecified organism Qualified Code(s): A41.9 - Sepsis, unspecified organism Comment: with acute organ dysfunction (5) Anxiety and depression Code(s): F41.9 - ANXIETY DISORDER, UNSPECIFIED; F32.9 - MAJOR DEPRESSIVE DISORDER, SINGLE EPISODE, UNSPECIFIED Status: Chronic - Plan cont current plan of care, continue antibiotics, respiratory therapy * pt is not stable enough to discharge, as she is demanding to go home, in that case she has to leave AMA * continue current optimum medical therapy * check room air oxygen level * follow culture * continue cefepime and azithromycin. Review of Systems - Review of Systems Eyes: negative: Pain, Vision Change, Conjunctivae Inflammation, Eyelid Inflammation, Redness, Other ENT: negative: Ear Pain, Ear Discharge, Nose Pain, Nose Discharge, Nose Congestion, Mouth Pain, Mouth Swelling, Throat Pain, Throat Swelling, Other Respiratory: Cough, Shortness of Breath, SOB with Excertion, Sputum. negative: Dry, Hemoptysis, Pleuritic Pain, Wheezing Cardiovascular: negative: chest pain, palpitations, orthopnea, paroxysmal nocturnal dyspnea, edema, light headedness, other Gastrointestinal: negative: Nausea, Vomiting, Abdominal Pain, Diarrhea, Constipation, Melena, Hematochezia, Other Genitourinary: negative: Dysuria, Frequency, Incontinence, Hematuria, Retention , Other Musculoskeletal: negative: Neck Pain, Shoulder Pain, Arm Pain, Back Pain, Hand Pain, Leg Pain, Foot Pain, Other Skin: negative: Rash, Lesions, Contreras, Bruising, Other - Medications/Allergies Allergies/Adverse Reactions: Allergies Allergy/AdvReac Type Severity Reaction Status Date / Time iodine Allergy Severe Anaphylaxis Verified 04/24/18 00:14 Sulfa (Sulfonamide Allergy Intermediate Rash Verified 04/24/18 00:14 Antibiotics) doxycycline Allergy cramps Verified 04/24/18 00:14 levofloxacin [From Levaquin] Allergy aches, Verified 04/24/18 00:14 itching Medications: Current Medications Acetaminophen (Tylenol) 650 mg PO Q4H PRN PRN Reason: Headache/Fever/Mild Pain (1-3) Hydrocodone Bitart/Acetaminophen (Preston 5/325) 1 tab PO Q4H PRN PRN Reason: Moderate Pain (4-6) Albuterol/Ipratropium (Duoneb) 3 ml NEB [id number] SULAIMAN Last Admin: 10/12/18 07:58 Dose: 3 ml Alprazolam (Xanax) 0.25 mg PO TIDPRN PRN PRN Reason: Anxiety Last Admin: 10/11/18 14:57 Dose: 0.25 mg Artificial Tears (Tears Naturale) 2 drop EA EYE PRN PRN PRN Reason: Dry Eyes Aspirin (Aspirin Chewable) 81 mg PO DAILY [facility] Last Admin: 10/12/18 09:26 Dose: 81 mg Bisacodyl (Dulcolax) 10 mg PO DAILYPRN PRN PRN Reason: Constipation Bisacodyl (Dulcolax) 10 mg UT DAILYPRN PRN PRN Reason: Constipation Calcium Carbonate (Tums) 1,000 mg PO Q4H PRN PRN Reason: Heartburn or Indigestion Fluoxetine HCl (Prozac) 10 mg PO DAILY [facility] Last Admin: 10/12/18 09:26 Dose: Not Given Gabapentin (Neurontin) 300 mg PO TID [facility] Last Admin: 10/12/18 09:26 Dose: 300 mg Guaifenesin (Mucinex) 600 mg PO Q12HR [facility] Last Admin: 10/12/18 09:27 Dose: 600 mg Guaifenesin (Robitussin Sf) 200 mg PO Q4H PRN PRN Reason: Cough Hydralazine HCl (Apresoline) 10 mg SLOW IVP Q4H PRN PRN Reason: SBP > 180 and HR < 70 Cefepime HCl 2 gm/ Sodium (Chloride) 100 mls @ 200 mls/hr IVPB Q12HR [facility] Last Admin: 10/12/18 09:29 Dose: 100 mls Azithromycin 500 mg/ Sodium (Chloride) 250 mls @ 250 mls/hr IVPB 0200 [facility] Last Admin: 10/12/18 02:07 Dose: 250 mls Loperamide HCl (Imodium) 2 mg PO PRN PRN PRN Reason: Diarrhea/Loose Stools Loratadine (Claritin) 10 mg PO DAILYPRN PRN PRN Reason: Sinus Symptoms Methylprednisolone Sodium Succinate (Solu-Medrol) 40 mg IVP Q6HR [facility] Last Admin: 10/12/18 05:38 Dose: 40 mg Mineral Oil/White Petrolatum (Eucerin Cream) 0 gm TOP BIDPRN PRN PRN Reason: Dry Skin Mometasone Furoate/Formoterol Fumar (Dulera 200 Mcg/5 Mcg Inhaler) 2 puff INH BID-RT [facility] Last Admin: 10/12/18 08:00 Dose: 2 puff Montelukast Sodium (Singulair) 10 mg PO QPM [facility] Last Admin: 10/11/18 21:59 Dose: 10 mg Ondansetron HCl (Zofran Odt) 4 mg PO Q6H PRN PRN Reason: Nausea/Vomiting Ondansetron HCl (Zofran) 4 mg IVP Q6H PRN PRN Reason: Nausea/Vomiting Pantoprazole Sodium (Protonix) 40 mg PO DAILY [facility] Last Admin: 10/12/18 09:27 Dose: Not Given Phenol (Chloraseptic [place] 180 Ml Bot) 0 ml PO BIDPRN PRN PRN Reason: Sore Throat Last Admin: 10/11/18 17:16 Dose: 2 spr Rivaroxaban (Xarelto) 20 mg PO QPM-WM [facility] Last Admin: 10/11/18 16:15 Dose: Not Given Saccharomyces Boulardii (Florastor) 250 mg PO DAILY [facility] Last Admin: 10/12/18 09:26 Dose: 250 mg Senna/Docusate Sodium (Senokot S) 2 tab PO BID PRN PRN Reason: Constipation Sodium Chloride (Latimer Nasal [place] 0.65%) 0 ml EA NARE QIDPRN PRN PRN Reason: Nasal Congestion Throat Lozenges (Cepastat Lozenges) 1 puneet PO Q2H PRN PRN Reason: Sore Throat Zolpidem Tartrate (Ambien) 5 mg PO HSPRN PRN PRN Reason: Insomnia
[2018-10-12] MEDS: Rivaroxaban 10 MG TAB PO SCH (18:26)
[2018-10-12] MEDS ORDERED: Furosemide 40 MG/4 ML VIAL SLOW IVP SCH (19:30)
[2018-10-12] MEDS: ALPRAZolam 0.25 MG TAB PO PRN (21:06)
[2018-10-12] MEDS: Montelukast Sodium 10 mg Tablet PO SCH (21:06)
[2018-10-13] MEDS: Azithromycin 500 MG in Sodium Chloride 0.9% 250 ML 250 ML IVPB SCH (02:53)
--- NOTE | 2018-10-13 03:44 | CON ---
DATE OF CONSULTATION: 10/12/2018 SERVICE: Pulmonary Medicine REASON FOR CONSULT: Respiratory failure. HISTORY OF PRESENT ILLNESS: The patient is a 62-year-old white female with past medical history significant for COPD. She was in the hospital in April. She was subsequently discharged from the hospital following treatment for her pneumonia and COPD exacerbation. Ultimately, she returned to her usual state of health until about a week and a half ago when she started having increasing cough, congestion, shortness of breath, lower extremity swelling, lack of appetite. She started having some low-grade temperatures, but does not exactly remember how high they went. Ultimately, she went to an Urgent Care Clinic on Friday evening one week ago. She was given a course of steroids and Augmentin. She was doing better for a period of time, but ultimately once again deteriorated. She sought medical attention yesterday and was subsequently admitted to the hospital because of hypoxemic respiratory failure. After spending one day in the hospital, she really was adamant that she wanted to be discharged home. Her physician got her up to walk her, and her saturations fell off to 83%, and her heart rate went up to the 120s. As such, they said that they would prefer that Pulmonary saw her and that she not go home without oxygen. The patient is absolutely distraught and beside herself. She is suggesting that if she is put on oxygen that she would not be able to work any longer. She says this as though we have any control over whether or not her body requires oxygen. I counseled the patient extensively about COPD, its pathophysiology, and its typical progression. I told her that her lungs may be at the point where she is pretty close to needing oxygen 24/. She is quite upset about this issue and is suggesting to me that if she cannot get to work tomorrow and if she requires oxygen for work, she will no longer have a job. She then broke into tears and said that she was going to be losing her house and her car and would be homeless shortly. PAST MEDICAL HISTORY: 1. COPD. 2. History of tobacco abuse. 3. History of alcohol abuse, quit in 1992. 4. Chronic low back pain. PAST SURGICAL HISTORY: 1. ASD repair. 2. Pericardiocentesis. 3. Abdominal hysterectomy. 4. Cholecystectomy. 5. Appendectomy. 6. Bladder surgery. 7. Eye surgery. FAMILY HISTORY: Noncontributory. SOCIAL HISTORY: She has a remote history of smoking. She quit in 2005 after she had some episodes of shortness of breath. Prior to that, she had a greater than [id number] history of smoking. She was a prior alcoholic, but quit in 1992. She is and has two children. 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 ALLERGIES: SULFA, DOXYCYCLINE, LEVOFLOXACIN, AND CONTRAST. MEDICATIONS: List of her inpatient medications was reviewed and updated. REVIEW OF SYSTEMS: General, head, ears, eyes, nose, throat, cardiovascular, respiratory, genitourinary, musculoskeletal, neurologic, and skin are negative except as mentioned in the HPI. PHYSICAL EXAMINATION: VITAL SIGNS: Afebrile. Pulse 92, blood pressure 116/64, respirations 20, and saturation 86% on room air. With 3 L nasal cannula, her saturations improved to 90%. HEENT: Normocephalic and atraumatic. Sclerae white. Conjunctivae pink. Oral mucosa is moist without lesions. LUNGS: Reduced air entry with a prolonged expiratory phase. Extensive rhonchi and crackles are both present. There is not really polyphonic wheezing per se. Most of her wheezing has more of a coarse texture to it. HEART: Normal rate, regular. ABDOMEN: Soft, nontender, and nondistended. Bowel sounds are positive. MUSCULOSKELETAL: No cyanosis or clubbing. There is a trace 1+ pitting in the bilateral lower extremities. NEUROLOGIC: Grossly nonfocal. LABORATORY DATA: WBC 11.9, hemoglobin 16.4, and platelets 218,000. INR 1.6, D-dimer 0.55, on Xarelto. Basic metabolic profile and liver function studies are essentially unremarkable. Lactate 1.8. Troponin is negative x1. Previous DIETER screen was unremarkable. HIV, strep, and Legionella urine antigens were previously negative. Influenza A and influenza B are both negative. Urine culture is negative to date. IMAGING DATA: Chest x-ray demonstrates findings compatible with minimum volume overload including pulmonary vascular congestion and cephalization with perihilar edema. No obvious effusion is noted. ASSESSMENT: 1. Acute on chronic hypoxic respiratory failure, suspected. 2. Chronic obstructive pulmonary disease with acute exacerbation. 3. Acute on chronic diastolic heart failure. 4. History of pericardial effusion with tamponade physiology. DISCUSSION AND PLAN: At this point, I simply do not feel comfortable with the patient going home under these circumstances. I will give her a dose of Lasix today and tomorrow morning. She does not have evidence of pneumonia on the chest x-ray. As such, the azithromycin and cefepime can be rapidly deescalated to p.o. antibiotics and limited to a 5-day course. We will continue her inhalers, nebulized therapy. The steroids will be converted over to a p.o. regimen. My suspicion is that the patient has a chronic hypoxic respiratory failure and/or is close to it. As such, it would not surprise me if the patient would need oxygen therapy moving forward. The patient did not like hearing this and suggested to me that because of this she will no longer have a job. I explained to her that my primary concern was her health and that I was hopeful that she may not need oxygen if we can optimize the way her lungs function. At this point, I hope she appreciates that I really do not have control over whether or not she will benefit from oxygen moving forward. If she fails to improve or decompensates further, repeat echocardiogram may be considered. Job ID: [id number]
[2018-10-13] MEDS ORDERED: Furosemide 40 MG/4 ML VIAL SLOW IVP SCH (06:00)
[2018-10-13] MEDS: Mometasone/Formoterol 120 PUFF INHALER INH SCH ×2 (07:32→19:21)
[2018-10-13] MEDS ORDERED: predniSONE 20 MG TAB PO SCH (08:00)
[2018-10-13 08:21] LABS: Mean Corpuscular HGB CONC 31.7 g/dL (32.0-36.0); Mean Corpuscular Hemoglobin 28.1 pg (27.0-31.0); Mean Corpuscular Volume 88.6 fL (78.0-98.0); Mean Platelet Volume 8.8 fL (7.4-10.4); Platelet Count 266 thou/uL (130-400); RBC Distribution Width 13.3 % (11.5-14.5); Red Blood Cell (RBC) Count 6.05 mill/uL (4.20-5.40); White Blood Cell (WBC) Count 18.2 thou/uL (4.8-10.8)
[2018-10-13 08:30] LABS: Anion Gap 12 mmol/L (10-20); BUN (Urea Nitrogen) 23 mg/dL (9.8-20.1); Calc. Creatinine Clearance 70 mL/min (70-130); Calcium 9.8 mg/dL (7.8-10.44); Carbon Dioxide 34 mmol/L (23-31); Chloride 103 mmol/L (98-107); Estimated GFR-MDRD 56; Glucose 144 mg/dL (80-115); Potassium 3.9 mmol/L (3.5-5.1); Sodium 145 mmol/L (136-145)
[2018-10-13] MEDS: guaiFENesin ER 600 MG TAB PO SCH (09:48)
[2018-10-13] MEDS: Saccharomyces boulardii 250 MG CAP PO SCH (09:49)
[2018-10-13] MEDS: Gabapentin 300 MG CAP PO SCH ×2 (09:50→17:18)
[2018-10-13] MEDS: Cefepime 2 GM in Sodium Chloride 0.9% 100 ML IVPB SCH (09:50)
[2018-10-13] MEDS: FLUoxetine HCl 10 MG CAP PO SCH (09:50)
[2018-10-13 10:52] LABS: Band 8 % (5-11); Lymphocytes 7 % (21-51); MDiff Complete? YES; Neutrophil 78 % (42-75); RBC Morphology Normal; Reactive Lymphocytes 7 % (0-10)
--- NOTE | 2018-10-13 11:00 | PRG ---
DATE OF SERVICE: 10/13/2018 SUBJECTIVE: She seems to be doing okay aside from hypoxemia. OBJECTIVE: VITAL SIGNS: Temperature 98.3, pulse 97, respirations 20, O2 saturation 90% on 3.5 L, and blood pressure 115/68. HEENT: Unremarkable. NECK: No JVD. LUNGS: Coarse rhonchi bilaterally. CARDIOVASCULAR: S1 and S2. Regular. ABDOMEN: Soft and nontender. EXTREMITIES: No edema. LABORATORY DATA: I reviewed her x-ray from the other day, essentially unrevealing. ASSESSMENT: Chronic obstructive pulmonary disease with exacerbation. PLAN: 1. Continue steroids, nebs, and antibiotics. 2. Increase activity as tolerated. 3. Will likely need some type of oxygen therapy at home with discharge. Job ID: [id number]
--- NOTE | 2018-10-13 11:38 | PDOC.PN ---
- Subjective Encounter Start Date: 10/13/18 Encounter Start Time: 07:50 Patient seen and examined. No new complaints. No overnight events - Objective Resuscitation Status - Order Detail: 10/11/18 07:43 Resuscitation Status Routine Resuscitation Status: FULL: Full Resuscitation MAR Reviewed: Yes Vital Signs & Weight: Vital Signs (12 hours) Temp Pulse Resp BP BP Pulse Ox 10/13/18 10:17 102 H 20 91 L 10/13/18 07:49 90 L 10/13/18 07:44 98.3 F 97 20 115/68 82 L 10/13/18 07:32 90 20 90 L 10/13/18 07:22 90 L 10/13/18 07:19 90 20 90 L 10/13/18 03:40 97.7 F 95 20 105/55 L 92 L 10/13/18 02:27 110 H 20 89 L Weight Weight 170 lb 8 oz I&O: 10/12/18 10/13/18 10/14/18 06:59 06:59 06:59 Intake Total 1280 1207 Output Total 600 1550 Balance 680 1207 -1550 Result Diagrams: 10/13/18 07:52 10/13/18 07:52 EKG Reviewed by me: Yes Phys Exam - Physical Examination Constitutional: NAD HEENT: PERRLA, moist MMs, sclera anicteric Neck: no JVD, supple Respiratory: no rales, wheezing present few wheezing Cardiovascular: RRR, no significant murmur, no rub Gastrointestinal: soft, non-tender, no distention Musculoskeletal: no edema, pulses present Neurological: non-focal, normal sensation, moves all 4 limbs Lymphatic: no nodes Psychiatric: normal affect, A&O x 3 Skin: no rash, normal turgor Dx/Plan (1) Acute respiratory failure with hypoxia Code(s): J96.01 - ACUTE RESPIRATORY FAILURE WITH HYPOXIA Status: Acute (2) COPD exacerbation Code(s): J44.1 - CHRONIC OBSTRUCTIVE PULMONARY DISEASE W (ACUTE) EXACERBATION Status: Acute Comment: (3) Community acquired bacterial pneumonia Code(s): J15.9 - UNSPECIFIED BACTERIAL PNEUMONIA Status: Acute (4) Sepsis Code(s): A41.9 - SEPSIS, UNSPECIFIED ORGANISM Status: Acute Qualifiers: Sepsis type: sepsis due to unspecified organism Qualified Code(s): A41.9 - Sepsis, unspecified organism Comment: with acute organ dysfunction (5) Anxiety and depression Code(s): F41.9 - ANXIETY DISORDER, UNSPECIFIED; F32.9 - MAJOR DEPRESSIVE DISORDER, SINGLE EPISODE, UNSPECIFIED Status: Chronic - Plan cont current plan of care, continue antibiotics, respiratory therapy * medication reviewed as below * symptomatic treatment * will need oxygen arrangement * pt does not appear to be ready for discharge but she insist on going, will consider discharge only if pulmonary ok * continue current antibiotics * steroid changed to PO prednisone. Review of Systems - Review of Systems ENT: negative: Ear Pain, Ear Discharge, Nose Pain, Nose Discharge, Nose Congestion, Mouth Pain, Mouth Swelling, Throat Pain, Throat Swelling, Other Respiratory: Cough, Shortness of Breath, Sputum. negative: Dry, Hemoptysis, SOB with Excertion, Pleuritic Pain, Wheezing Cardiovascular: negative: chest pain, palpitations, orthopnea, paroxysmal nocturnal dyspnea, edema, light headedness, other Gastrointestinal: negative: Nausea, Vomiting, Abdominal Pain, Diarrhea, Constipation, Melena, Hematochezia, Other Genitourinary: negative: Dysuria, Frequency, Incontinence, Hematuria, Retention , Other Musculoskeletal: negative: Neck Pain, Shoulder Pain, Arm Pain, Back Pain, Hand Pain, Leg Pain, Foot Pain, Other Skin: negative: Rash, Lesions, Contreras, Bruising, Other - Medications/Allergies Allergies/Adverse Reactions: Allergies Allergy/AdvReac Type Severity Reaction Status Date / Time iodine Allergy Severe Anaphylaxis Verified 04/24/18 00:14 Sulfa (Sulfonamide Allergy Intermediate Rash Verified 04/24/18 00:14 Antibiotics) doxycycline Allergy cramps Verified 04/24/18 00:14 levofloxacin [From Levaquin] Allergy aches, Verified 04/24/18 00:14 itching Medications: Current Medications Acetaminophen (Tylenol) 650 mg PO Q4H PRN PRN Reason: Headache/Fever/Mild Pain (1-3) Hydrocodone Bitart/Acetaminophen ([place] 5/325) 1 tab PO Q4H PRN PRN Reason: Moderate Pain (4-6) Albuterol/Ipratropium (Duoneb) 3 ml NEB [id number] [place] Last Admin: 10/13/18 10:17 Dose: 3 ml Alprazolam (Xanax) 0.25 mg PO TIDPRN PRN PRN Reason: Anxiety Last Admin: 10/12/18 21:06 Dose: 0.25 mg Artificial Tears (Tears Naturale) 2 drop EA EYE PRN PRN PRN Reason: Dry Eyes Aspirin (Aspirin Chewable) 81 mg PO DAILY [facility] Last Admin: 10/13/18 09:49 Dose: 81 mg Bisacodyl (Dulcolax) 10 mg PO DAILYPRN PRN PRN Reason: Constipation Bisacodyl (Dulcolax) 10 mg KS DAILYPRN PRN PRN Reason: Constipation Calcium Carbonate (Tums) 1,000 mg PO Q4H PRN PRN Reason: Heartburn or Indigestion Fluoxetine HCl (Prozac) 10 mg PO DAILY [facility] Last Admin: 10/13/18 09:50 Dose: Not Given Gabapentin (Neurontin) 300 mg PO TID [facility] Last Admin: 10/13/18 09:50 Dose: 300 mg Guaifenesin (Mucinex) 600 mg PO Q12HR [facility] Last Admin: 10/13/18 09:48 Dose: 600 mg Guaifenesin (Robitussin Sf) 200 mg PO Q4H PRN PRN Reason: Cough Hydralazine HCl (Apresoline) 10 mg SLOW IVP Q4H PRN PRN Reason: SBP > 180 and HR < 70 Cefepime HCl 2 gm/ Sodium (Chloride) 100 mls @ 200 mls/hr IVPB Q12HR [facility] Last Admin: 10/13/18 09:50 Dose: 100 mls Azithromycin 500 mg/ Sodium (Chloride) 250 mls @ 250 mls/hr IVPB 0200 [facility] Last Admin: 10/13/18 02:53 Dose: 250 mls Loperamide HCl (Imodium) 2 mg PO PRN PRN PRN Reason: Diarrhea/Loose Stools Loratadine (Claritin) 10 mg PO DAILYPRN PRN PRN Reason: Sinus Symptoms Mineral Oil/White Petrolatum (Eucerin Cream) 0 gm TOP BIDPRN PRN PRN Reason: Dry Skin Mometasone Furoate/Formoterol Fumar (Dulera 200 Mcg/5 Mcg Inhaler) 2 puff INH BID-RT [facility] Last Admin: 10/13/18 07:32 Dose: 2 puff Montelukast Sodium (Singulair) 10 mg PO QPM [facility] Last Admin: 10/12/18 21:06 Dose: 10 mg Ondansetron HCl (Zofran Odt) 4 mg PO Q6H PRN PRN Reason: Nausea/Vomiting Ondansetron HCl (Zofran) 4 mg IVP Q6H PRN PRN Reason: Nausea/Vomiting Pantoprazole Sodium (Protonix) 40 mg PO DAILY [facility] Last Admin: 10/13/18 09:48 Dose: 40 mg Phenol (Chloraseptic [place] 180 Ml Bot) 0 ml PO BIDPRN PRN PRN Reason: Sore Throat Last Admin: 10/11/18 17:16 Dose: 2 spr Prednisone (Prednisone) 40 mg PO QAM[facility] Last Admin: 10/13/18 09:49 Dose: 40 mg Rivaroxaban (Xarelto) 20 mg PO QPM[facility] Last Admin: 10/12/18 18:26 Dose: 20 mg Saccharomyces Boulardii (Florastor) 250 mg PO DAILY [facility] Last Admin: 10/13/18 09:49 Dose: 250 mg Senna/Docusate Sodium (Senokot S) 2 tab PO BID PRN PRN Reason: Constipation Sodium Chloride ([place] Nasal [place] 0.65%) 0 ml EA NARE QIDPRN PRN PRN Reason: Nasal Congestion Throat Lozenges (Cepastat Lozenges) 1 puneet PO Q2H PRN PRN Reason: Sore Throat Zolpidem Tartrate (Ambien) 5 mg PO HSPRN PRN PRN Reason: Insomnia
[2018-10-13 12:40] VITALS: BP 99/64; TEMP 98.1
--- NOTE | 2018-10-13 16:39 | DIS ---
DATE OF ADMISSION: 10/11/2018 DATE OF DISCHARGE: 10/13/2018 PRIMARY CARE PHYSICIAN: Rae Benson MD DISCHARGE DISPOSITION: Home with home oxygen. PRIMARY DISCHARGE DIAGNOSES: 1. Acute respiratory failure with hypoxia. 2. Community-acquired pneumonia. 3. Chronic obstructive pulmonary disease exacerbation. 4. Sepsis with acute organ dysfunction. SECONDARY DISCHARGE DIAGNOSES: Anxiety and depression. PRIMARY PROCEDURE/OPERATION: None. RADIOLOGICAL INVESTIGATION: Chest x-ray. SIGNIFICANT LABORATORY DATA: Hemoglobin 17.0. INR 1.6. Creatinine 0.98. Cardiac enzyme negative. LFTs normal. Blood culture, influenza screen negative. Urine culture negative. DISCHARGE MEDICATIONS: 1. Lasix 40 mg p.o. daily. 2. Gabapentin 300 mg p.o. t.i.d. 3. DuoNeb q.6 hourly p.r.n. 4. Dulera two puff inhalations b.i.d. 5. Xarelto 20 mg daily. 6. Omnicef 300 mg p.o. b.i.d. for 7 days. 7. Mucinex 600 mg twice daily for 7 days. 8. Diflucan 100 mg p.o. daily for 5 days. 9. Protonix 40 mg p.o. daily. 10. Prednisone 40 mg p.o. daily for 7 days and then 20 mg p.o. daily for 5 days and then 10 mg p.o. daily for 5 days. 11. Florastor 250 mg p.o. daily for 7 days. CONTRAINDICATION: None. CODE STATUS: Full code. INPATIENT FILM SPOOLER: Dr. Peoples was following while in hospital. TEST RESULTS PENDING ON DISCHARGE: None. ALLERGIES: IODINE, SULFA, DOXYCYCLINE, AND LEVOFLOXACIN. DISCHARGE PLAN: Posthospital, the patient will follow up with primary care physician as instructed. HOSPITAL COURSE: The patient was admitted by me. Please see my HPI for further details. She was in respiratory distress. She was hypoxic respiratory failure on admission. She was suffering from pneumonia as well as COPD flare-up. She was admitted to telemetry floor. We treated her optimally with cefepime, Levaquin therapy, steroid therapy, several nebulization therapies as well as Dulera was given. This patient on day #1 started asking to go home because she was worried more about her job. She was not worried about her health status. Even today, she wanted to go home, and based on her request, we decided to let her go home. She is at high risk for recurrent admission. Dr. Peoples also cleared her for discharge as well. She needs home oxygen and that will be arranged before discharge with the help of clinical case manager. We provided the patient education about avoiding smoking, healthy lifestyle measure discussed with the patient. We advised her to continuously use her oxygen. All new medication prescription sent to her pharmacy. Job ID: [id number]
[2018-10-13] MEDS: Rivaroxaban 10 MG TAB PO SCH (17:18)
== END 2018-10-13 19:15 | disposition home or self-care (01) | DRG 871 ==
LOC: ERS 01:21 → ERHOLD 04:16 → 2NO 13:52
PROVIDERS: ADMIT Internal Medicine; ATTEND Internal Medicine
DX: A41.9 Sepsis, unspecified organism (principal); J96.21 Acute and chronic respiratory failure with hypoxia; I50.33 Acute on chronic diastolic (congestive) heart failure; J15.9 Unspecified bacterial pneumonia; J44.0 Chronic obstructive pulmonary disease with (acute) lower respiratory infection; J44.1 Chronic obstructive pulmonary disease with (acute) exacerbation; F41.9 Anxiety disorder, unspecified; F32.9 Major depressive disorder, single episode, unspecified; M54.9 Dorsalgia, unspecified; G89.29 Other chronic pain; Z87.891 Personal history of nicotine dependence
CPT/HCPCS: 36415; 71046; 80048; 80053; 81003; 82553; 83605; 83880; 84484; 85025; 85379; 85610; 85730; 87040; 87086; 87804; 93005; 94640; 94760; 96365; 96367; 96375; J0456; J0692; J0696; J1650; J1940; J2920; J2930; J7050; J7506; J7620

== ENCOUNTER 2019-07-26 08:55 | Observation (INO) | payer MEDICARE, OTHER ==
[2019-07-26 09:36] LABS: #Eosinphils 0.1 thou/uL (0.0-0.7); #Lymphocytes 1.4 thou/uL (1.20-3.40); #Monocytes 0.8 thou/uL (0.11-0.59); #Neutrophils 11.9 thou/uL (1.40-6.50); %Basophils 0.2 % (0.0-1.0); %Eosinophils 0.7 % (0.0-10.0); %Monocytes 5.3 % (0.0-10.0); %Neutrophils 83.8 % (42.0-75.0); Hemoglobin 17.6 g/dL (12.0-16.0); Mean Corpuscular HGB CONC 32.3 g/dL (32.0-36.0); Mean Corpuscular Hemoglobin 29.4 pg (27.0-31.0); Mean Corpuscular Volume 90.9 fL (78.0-98.0); Mean Platelet Volume 9.3 fL (7.4-10.4); Platelet Count 231 thou/uL (130-400); RBC Distribution Width 12.8 % (11.5-14.5); Red Blood Cell (RBC) Count 6.01 mill/uL (4.20-5.40); White Blood Cell (WBC) Count 14.2 thou/uL (4.8-10.8)
[2019-07-26 09:57] LABS: ALT (SGPT) 15 U/L (8-55); AST (SGOT) 13 U/L (5-34); Alkaline Phosphatase 96 U/L (40-150); Anion Gap 9 mmol/L (10-20); BUN (Urea Nitrogen) 10 mg/dL (9.8-20.1); Bilirubin, Total 0.8 mg/dL (0.2-1.2); Calc. Creatinine Clearance 0 mL/min (70-130); Calcium 9.6 mg/dL (7.8-10.44); Carbon Dioxide 29 mmol/L (23-31); Chloride 106 mmol/L (98-107); Estimated GFR-MDRD 59; Globulin 2.8 g/dL (2.4-3.5); Glucose 119 mg/dL (80-115); Potassium 4.1 mmol/L (3.5-5.1); Protein, Total 6.8 g/dL (6.0-8.3); Sodium 140 mmol/L (136-145)
[2019-07-26] MEDS ORDERED: Piperacillin/Tazobactam 4.5 GM VIAL ONE (10:15)
--- NOTE | 2019-07-26 11:07 | RAD ---
CHEST 1 VIEW PORTABLE: Date: 07/26/19 HISTORY: Shortness of breath. COMPARISON: 05/01/18 and 10/11/18 exams. FINDINGS: Heart size is enlarged with postop sternotomy changes. Chronic appearing lung changes are seen withou t focal infiltrative process or signs of failure. IMPRESSION: Cardiomegaly with chronic appearing lung change. No definite acute process. POS: OFF
[2019-07-26] MEDS ORDERED: Sodium Chloride 0.9% 1,000 ML IV SCH (11:30)
[2019-07-26] MEDS ORDERED: Bisacodyl 10 MG SUPP PR PRN (11:30)
[2019-07-26] MEDS ORDERED: Senokot S 8.6-50 MG TAB PO PRN (11:30)
[2019-07-26] MEDS ORDERED: Guaifenesin DM 100-10/5 ML UDCUP PO PRN (11:30)
[2019-07-26] MEDS ORDERED: Ondansetron PF 4 MG/2 ML Vial IVP PRN (11:30)
[2019-07-26] MEDS ORDERED: Acetaminophen 325 MG TAB PO PRN (11:30)
[2019-07-26] MEDS ORDERED: Gabapentin 300 MG CAP PO SCH ×2 (12:45→21:00)
[2019-07-26] MEDS ORDERED: Amoxicillin/Potassium Clav 875 MG TAB PO SCH (12:45)
[2019-07-26 14:41] VITALS: BMI 30.5
[2019-07-26] MEDS: methylPREDNISolone Sod Succ 40 MG VIAL IVP SCH ×3 (16:03→23:50)
[2019-07-26] MEDS: Gabapentin 100 MG CAP PO SCH ×2 (16:04→16:15)
--- NOTE | 2019-07-26 17:43 | HP ---
REASON FOR ADMISSION: CHF exacerbation. HISTORY OF PRESENTING ILLNESS: The patient gives history of having throat pain and feeling of her throat closing up from last evening. She has had cough with expectoration of clear sputum. She felt congested in the chest and ear, nose, and throat area. She felt fullness with frontal headache. The patient also mentions that her ears are hurting from yesterday and also has some itching in her ears. Has had subjective fever at home. On arrival here, had a temperature of 101. No complaints of chest pain or palpitation. Currently, she is feeling a little better after receiving nebulization in the ER. PAST MEDICAL AND SURGICAL HISTORY: History of tobacco abuse, COPD, peripheral neuropathy. She has had open ASD repair with sternotomy in [facility] [place] in 2016, cholecystectomy, and hysterectomy. CURRENT MEDICATIONS: The patient takes, 1. Dulera inhaler twice daily. 2. Gabapentin 300 mg p.o. q.a.m. and 600 mg p.o. q.p.m. ALLERGIES: TO DOXYCYCLINE, IODINE, LEVAQUIN, AND SULFA. PERSONAL HISTORY: She has been smoking half pack a day for last 30 years or so. Does not abuse alcohol or drugs. The patient lives with her 3 grandchildren and son-in-law. She ambulates by herself. 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 FAMILY HISTORY: Mother at the age of 91 years. She has had history of lung cancer, was not a smoker. She has osteoporosis. Father at the age of 64. He has had history of coronary artery disease. CODE STATUS: Full. REVIEW OF SYSTEMS: CONSTITUTIONAL: Negative for weight loss or gain, ability to conduct usual activities. SKIN: Negative for rash, itching. EYES: Negative for double vision, pain. ENT/MOUTH: Negative for nose bleeding, neck stiffness, pain, tenderness. CARDIOVASCULAR: Negative for palpitations, dyspnea on exertion, orthopnea. RESPIRATORY: Negative for shortness of breath, wheezing, cough, hemoptysis, fever or night sweats. GASTROINTESTINAL: Negative for poor appetite, abdominal pain, heartburn, nausea , vomiting, constipation, or diarrhea. GENITOURINARY: Negative for urgency, frequency, dysuria, nocturia. MUSCULOSKELETAL: Negative for pain, swelling. NEUROLOGIC/PSYCHIATRIC: Negative for anxiety, depression. ALLERGY/IMMUNOLOGIC: Negative for skin rash, bleeding tendency. PHYSICAL EXAMINATION: GENERAL: The patient is a 63-year-old female, who is currently not in any acute distress. VITAL SIGNS: Blood pressure 128/60; pulse 86 per minute; respiratory rate 22 on arrival; temperature 101 degrees on arrival, currently 99 degrees; and saturating 94% on room air. NECK: Supple. No elevated JVD. HEENT: Eyes; extraocular muscles intact. Pupils reacting to light. Oral cavity; mucous membranes are dry. There is congestion seen in the posterior pharynx. No obvious exudates seen. NECK: Supple. No cervical lymphadenopathy or jugulodigastric nodes felt. No elevated JVD. CARDIOVASCULAR SYSTEM: S1 and S2 heard, regular rhythm. RESPIRATORY: Air entry 1+ bilateral. Scattered wheezes plus bilateral. Rhonchi plus. ABDOMEN: Soft. Bowel sounds heard. No tenderness, rigidity, or guarding. EXTREMITIES: No peripheral edema or calf tenderness. VASCULAR SYSTEM: Peripheral pulses 1+ bilateral. No ischemic ulcerations or gangrene. CENTRAL NERVOUS SYSTEM: No gross focal deficits noted. The patient is alert, awake, and oriented well. PSYCHIATRIC SYSTEM: The patient's mood is euthymic. No hallucinations or delusions. LABORATORY DATA: EKG done shows cardiomegaly with prior sternotomy changes. No acute infiltrate. Electrolytes stable. BUN 10, creatinine 0.9, and serum glucose 119. Liver enzymes within normal limits. Albumin is 4.0. White count of 14, H and H of 17 and 54, and platelet count is 231 with 83% neutrophils. EKG done shows normal sinus rhythm at 81 beats per minute. There are Q-waves seen in V1 and V2. CLINICAL IMPRESSION AND PLAN: The patient will be under observation on medical floor for chronic obstructive pulmonary disease exacerbation. The patient will be placed on Augmentin 875 mg twice daily along with steroids. She will be gently hydrated with normal saline at 70 mL per hour. The patient appears to be dehydrated with [id number] dehydration. We will continue her gabapentin 300 mg in the morning and 600 mg p.o. q.p.m., Dulera inhaler as before. We will also obtain an echo with 2D Doppler for LV function and a BNP level as well. If the patient were to spike fever again, we will have a repeat chest x-ray after gentle hydration to see if she has any developing pneumonia. She will be switched over to inpatient status if the patient would not recover well by tomorrow afternoon. We will continue to closely monitor her on medical floor. Job ID: [id number] MTDD
[2019-07-26] MEDS: Amoxicillin/Potassium Clav 875 MG TAB PO SCH (18:02)
[2019-07-26] MEDS: Mometasone/Formoterol 120 PUFF INHALER INH SCH (19:04)
[2019-07-26] MEDS: Famotidine 20 MG TAB PO SCH (20:59)
[2019-07-26] MEDS: guaiFENesin ER 600 MG TAB PO SCH (21:00)
[2019-07-26] MEDS ORDERED: ALPRAZolam 0.5 MG TAB PO PRN (21:22)
[2019-07-27 04:39] LABS: #Lymphocytes 0.7 thou/uL (1.20-3.40); #Monocytes 0.1 thou/uL (0.11-0.59); #Neutrophils 12.2 thou/uL (1.40-6.50); %Eosinophils 0.1 % (0.0-10.0); %Lymphocytes 5.5 % (21.0-51.0); %Monocytes 0.7 % (0.0-10.0); %Neutrophils 93.7 % (42.0-75.0); Hemoglobin 16.8 g/dL (12.0-16.0); Mean Corpuscular HGB CONC 33.6 g/dL (32.0-36.0); Mean Corpuscular Hemoglobin 30.8 pg (27.0-31.0); Mean Corpuscular Volume 91.8 fL (78.0-98.0); Mean Platelet Volume 8.9 fL (7.4-10.4); Platelet Count 214 thou/uL (130-400); RBC Distribution Width 12.8 % (11.5-14.5); Red Blood Cell (RBC) Count 5.44 mill/uL (4.20-5.40)
[2019-07-27 05:35] LABS: Anion Gap 9 mmol/L (10-20); BUN (Urea Nitrogen) 11 mg/dL (9.8-20.1); Calc. Creatinine Clearance 76 mL/min (70-130); Calcium 9.5 mg/dL (7.8-10.44); Carbon Dioxide 23 mmol/L (23-31); Chloride 113 mmol/L (98-107); Estimated GFR-MDRD 60; Glucose 174 mg/dL (80-115); Potassium 4.5 mmol/L (3.5-5.1); Sodium 140 mmol/L (136-145)
[2019-07-27] MEDS: methylPREDNISolone Sod Succ 40 MG VIAL IVP SCH ×2 (05:50→11:59)
[2019-07-27] MEDS: Mometasone/Formoterol 120 PUFF INHALER INH SCH (06:49)
[2019-07-27 08:20] VITALS: BP 149/66; TEMP 97.6
[2019-07-27] MEDS: Amoxicillin/Potassium Clav 875 MG TAB PO SCH (08:31)
[2019-07-27] MEDS: Famotidine 20 MG TAB PO SCH (08:31)
[2019-07-27] MEDS: guaiFENesin ER 600 MG TAB PO SCH (08:32)
[2019-07-27] MEDS ORDERED: Enoxaparin Sodium 40 MG/0.4 ML SYRINGE SC SCH (09:00)
[2019-07-27] MEDS ORDERED: Gabapentin 100 MG CAP PO SCH (09:00)
--- NOTE | 2019-07-28 12:21 | DIS ---
DATE OF ADMISSION: 07/26/2019 DATE OF DISCHARGE: 07/27/2019 DISCHARGE DISPOSITION: Home. PRIMARY DISCHARGE DIAGNOSES: Chronic obstructive pulmonary disease exacerbation , history of tobacco abuse, moderate dehydration, peripheral neuropathy. PROCEDURES DONE DURING HOSPITALIZATION: Chest x-ray done showed no acute process. Blood cultures x2, no growth. Respiratory cultures were negative. BUN 11, creatinine 0.9. DISCHARGE MEDICATIONS: 1. Augmentin 875 mg p.o. twice daily for another 5 days. 2. DuoNeb q.6 hourly p.r.n. 3. Prednisone 20 mg p.o. daily for another 3 days. 4. Dulera inhaler 2 puffs twice daily. 5. Gabapentin 600 mg p.o. at bedtime and 300 mg p.o. q.a.m. 6. Xanax 0.5 mg p.o. at bedtime p.r.n. for insomnia. ALLERGIES: ALLERGIC TO IODINE, SULFA, DOXYCYCLINE, LEVAQUIN. DISCHARGE PLAN: The patient to follow up with her primary care physician in 1 week BRIEF COURSE DURING HOSPITALIZATION: The patient initially came in with complaints of shortness of breath and her throat closing up with postnasal drip, congestion in her throat and nose area and with fullness and frontal headache. The patient is also actively using tobacco. In view of this history, the patient was placed under observation on telemetry. She was placed on steroids, empiric Augmentin, and nebulizations. All of this has helped her. She is ambulating and eating well. She was counseled with regard to tobacco use. She is hemodynamically stable and will be shortly discharged home. Please note, I have seen and examined the patient on the day of discharge. Job ID: [id number] [facility]
--- NOTE | 2019-07-31 13:28 | EKG ---
Test Reason : Blood Pressure : / mmHG Vent. Rate : 081 BPM Atrial Rate : 081 BPM P-R Int : 172 ms QRS Dur : 080 ms QT Int : 386 ms P-R-T Axes : 038 095 055 degrees QTc Int : 448 ms Normal sinus rhythm Rightward axis Septal infarct , age undetermined Abnormal ECG Confirmed by MARYBETH CURRAN, KITA ([id number]), material expeditor JAYCE GUZMAN ([id number]) on 07/31/2019 1:27:47 PM Referred By: Confirmed By:KITA RUEDA MD
== END 2019-07-27 12:09 | disposition home or self-care (01) ==
LOC: ERS 08:55 → ERHOLD 11:00 → 2SW 14:32
PROVIDERS: ADMIT Internal Medicine; ATTEND Internal Medicine
DX: J44.1 Chronic obstructive pulmonary disease with (acute) exacerbation (principal); E86.0 Dehydration; G62.9 Polyneuropathy, unspecified; F17.210 Nicotine dependence, cigarettes, uncomplicated; Z79.899 Other long term (current) drug therapy; Z88.1 Allergy status to other antibiotic agents; Z88.2 Allergy status to sulfonamides; Z91.041 Radiographic dye allergy status
CPT/HCPCS: 71045; 80048; 80053; 83605; 85025 ×2; 87040; 87070 ×2; 87205; 93005; 94640 ×3; 96361 ×3; 96365; 96367; 96375; 96376 ×2; 99285; G0378 ×3; 36415; J2543; J2920; J3370; J7620

== ENCOUNTER 2019-08-09 08:07 | Emergency (ER) | payer MEDICARE, OTHER ==
[2019-08-09 08:40] LABS: #Eosinphils 0.1 thou/uL (0.0-0.7); #Lymphocytes 1.7 thou/uL (1.20-3.40); #Monocytes 0.5 thou/uL (0.11-0.59); #Neutrophils 10.3 thou/uL (1.40-6.50); %Basophils 0.1 % (0.0-1.0); %Eosinophils 1.1 % (0.0-10.0); %Lymphocytes 13.5 % (21.0-51.0); %Monocytes 4.1 % (0.0-10.0); %Neutrophils 81.2 % (42.0-75.0); Mean Corpuscular Hemoglobin 30.2 pg (27.0-31.0); Mean Corpuscular Volume 88.8 fL (78.0-98.0); Mean Platelet Volume 9.2 fL (7.4-10.4); Platelet Count 206 thou/uL (130-400); RBC Distribution Width 12.7 % (11.5-14.5); Red Blood Cell (RBC) Count 5.64 mill/uL (4.20-5.40); White Blood Cell (WBC) Count 12.7 thou/uL (4.8-10.8)
[2019-08-09 09:00] LABS: ALT (SGPT) 15 U/L (8-55); AST (SGOT) 17 U/L (5-34); Albumin 3.7 g/dL (3.4-4.8); Alkaline Phosphatase 101 U/L (40-110); Anion Gap 14 mmol/L (10-20); BUN (Urea Nitrogen) 14 mg/dL (9.8-20.1); Bilirubin, Total 0.5 mg/dL (0.2-1.2); Calc. Creatinine Clearance 0 mL/min (70-130); Calcium 9.3 mg/dL (7.8-10.44); Carbon Dioxide 23 mmol/L (23-31); Chloride 108 mmol/L (98-107); Estimated GFR-MDRD 47; Globulin 3.2 g/dL (2.4-3.5); Glucose 152 mg/dL (80-115); Potassium 4.1 mmol/L (3.5-5.1); Protein, Total 6.9 g/dL (6.0-8.3); Sodium 141 mmol/L (136-145)
--- NOTE | 2019-08-09 09:23 | RAD ---
XR Chest Pa Lat STANDARD HISTORY: Cough and fever COMPARISON: 10/11/2018 study. FINDINGS: Heart size is enlarged with postop sternotomy changes. Interstitial scarring is seen in bot h lung bhatia. No acute process. IMPRESSION: Cardiomegaly with chronic lung change
--- NOTE | 2019-08-14 13:41 | EKG ---
Test Reason : COUGH Blood Pressure : / mmHG Vent. Rate : 087 BPM Atrial Rate : 087 BPM P-R Int : 176 ms QRS Dur : 078 ms QT Int : 392 ms P-R-T Axes : 051 098 054 degrees QTc Int : 471 ms Sinus rhythm with Premature atrial complexes Rightward axis Borderline ECG Confirmed by BERNARDINO SR ([id number]), publishing editor CORONA ANAYA ([id number] on 08/14/2019 1:41:08 PM Referred By: Confirmed By:BERNARDINO SR
== END 2019-08-09 10:17 | disposition home or self-care (01) ==
LOC: ERS 08:07
DX: R06.2 Wheezing (principal); J44.9 Chronic obstructive pulmonary disease, unspecified; Z87.891 Personal history of nicotine dependence; Z79.899 Other long term (current) drug therapy
CPT/HCPCS: 36415; 71046; 80053; 83880; 85025; 93005; 94640; J7620

== ENCOUNTER 2019-08-15 19:46 | Inpatient (IN) | payer MEDICARE, OTHER ==
[2019-08-15] MEDS ORDERED: Albuterol Sulfate 2.5 mg/3 ml Neb ONE ×2 (20:04→20:11)
[2019-08-15] MEDS ORDERED: Sodium Chloride 0.9% 100 ML ONE (20:23)
[2019-08-15] MEDS ORDERED: methylPREDNISolone Sod Succ/PF 125 MG/2 ML VIAL ONE (20:23)
[2019-08-15] MEDS ORDERED: Magnesium 2 GM/50 ML BAG (IN WATER) ONE (20:23)
[2019-08-15] MEDS ORDERED: cefTRIAXone\\ROCEPHIN 2 GM VIAL ONE (20:23)
[2019-08-15 20:24] LABS: Base Excess-Venous 0.6 mmol/L (-2.0 to 3.0); Bicarbonate (HCO3v) 23.1 mmol/L (22.0-28.0); CO2 Tension (PvCO2) 31.8 mmHg (40.0-50.0); Calcium, Ionized 1.06 mmol/L (See Comments:); Chloride 109 mmol/L (98-107); Hemoglobin - Calc 18.9 g/dL (12.0-16.0); Potassium 3.9 mmol/L (3.5-5.1); Sodium 142 mmol/L (138-145); T. Carbon Dioxide 24.1 mmol/L (22.0-28.0); vO2 Saturation-calc 89.7 % (60.0-85.0)
[2019-08-15 20:31] LABS: #Eosinphils 0.1 thou/uL (0.0-0.7); #Lymphocytes 1.8 thou/uL (1.20-3.40); #Monocytes 1.3 thou/uL (0.11-0.59); %Basophils 0.1 % (0.0-1.0); %Eosinophils 0.8 % (0.0-10.0); %Lymphocytes 11.8 % (21.0-51.0); %Monocytes 8.8 % (0.0-10.0); %Neutrophils 78.6 % (42.0-75.0); Hemoglobin 17.2 g/dL (12.0-16.0); Mean Corpuscular HGB CONC 34.1 g/dL (32.0-36.0); Mean Corpuscular Hemoglobin 30.6 pg (27.0-31.0); Mean Corpuscular Volume 89.6 fL (78.0-98.0); Mean Platelet Volume 8.6 fL (7.4-10.4); Platelet Count 252 thou/uL (130-400); RBC Distribution Width 12.9 % (11.5-14.5); Red Blood Cell (RBC) Count 5.62 mill/uL (4.20-5.40); White Blood Cell (WBC) Count 15.3 thou/uL (4.8-10.8)
[2019-08-15 20:48] LABS: ALT (SGPT) 14 U/L (8-55); AST (SGOT) 11 U/L (5-34); Albumin 3.6 g/dL (3.4-4.8); Alkaline Phosphatase 108 U/L (40-110); Anion Gap 13 mmol/L (10-20); BUN (Urea Nitrogen) 13 mg/dL (9.8-20.1); Bilirubin, Total 0.3 mg/dL (0.2-1.2); CK (CPK) 57 U/L (29-168); Calc. Creatinine Clearance 0 mL/min (70-130); Calcium 9.1 mg/dL (7.8-10.44); Carbon Dioxide 25 mmol/L (23-31); Chloride 107 mmol/L (98-107); Estimated GFR-MDRD 53; Globulin 3.2 g/dL (2.4-3.5); Glucose 140 mg/dL (80-115); Potassium 3.6 mmol/L (3.5-5.1); Protein, Total 6.8 g/dL (6.0-8.3); Sodium 141 mmol/L (136-145)
--- NOTE | 2019-08-15 20:52 | RAD ---
PORTABLE CHEST: History: Shortness of breath. Comparison: 08-09-19 FINDINGS: Cardiomegaly. Mild vascular engorgement. Hazy infiltrate in the right midlung and right lower lung. O pacity in the left peripheral lung is again seen suggesting stranding or atelectasis. IMPRESSION: Cardiomegaly with mild vascular congestion. Increasing infiltrate in the right mid and lower lung. POS: OFF
[2019-08-15] MEDS ORDERED: Azithromycin 500 MG VIAL ONE (21:02)
[2019-08-15] MEDS ORDERED: Vancomycin HCl 1.5 GM in Sodium Chloride 0.9% 250 ML 300 ML IVPB SCH (21:15)
[2019-08-15] MEDS ORDERED: Ondansetron PF 4 MG/2 ML Vial ONE (21:36)
[2019-08-15] MEDS ORDERED: Enoxaparin Sodium 100 MG/ML SYRINGE ONE (21:55)
[2019-08-15 22:08] LABS: INR-International Normal Ratio 0.9; PTT 25.9 SEC (22.9-36.1); Prothrombin Time 12.5 SEC (12.0-14.7)
[2019-08-15 22:09] LABS: D-Dimer Test 0.99 *mcg/mL (0.27-0.43)
--- NOTE | 2019-08-15 22:56 | CT ---
CT CHEST WITHOUT CONTRAST: Indication: COPD. Pneumonia. Shortness of breath, chest tightness. Comparison: Noncontrast chest CT 01-21-11. FINDINGS: There is cardiomegaly. Mild vascular congestion. Images of the mediastinum reveals prominence of the right pulmonary artery. There is abnormal density seen in the right main pulmonary artery. This is concerning for possible embolus at this location. F indings were discussed with ordering physician. Patient cannot have IV contrast due to severe reactio n. Patient will be started on anticoagulation and a VQ scan ordered in the morning to further assess. Review of the lung bhatia reveals linear stranding in both mid lungs consistent with atelectasis. The re is linear stranding in the basis and there are chronic lung parenchymal changes consistent with th e history of COPD. There is no confluent consolidation. Solid ground glass opacities in the upper dariel g bhatia could represent mild infiltrate. However, no evidence of focal inflammatory infiltrate or pn eumonia apparent. Images through the upper abdomen are unremarkable. IMPRESSION: 1. Abnormal density seen in the right main pulmonary artery on this noncontrast study. Findings are c oncerning for pulmonary embolus. Patient cannot have IV contrast. A VQ scan will be performed in the morning. 2. The lungs show chronic lung changes with atelectasis and stranding bilaterally. No focal infiltrat e or consolidation. Findings were discussed with Dr. Bernabe. Code CR POS: OFF
[2019-08-15] MEDS ORDERED: Acetaminophen 325 MG TAB PO PRN (23:20)
[2019-08-16 00:08] VITALS: BMI 31.0
[2019-08-16 00:12] LABS: Troponin I Less than 0.010 ng/mL (< 0.028)
[2019-08-16] MEDS ORDERED: Bacteriostatic Water 30 ML VIAL FS PRN (01:29)
[2019-08-16] MEDS ORDERED: Ondansetron ODT 4 MG TAB PO PRN (01:29)
[2019-08-16] MEDS ORDERED: Ondansetron PF 4 MG/2 ML Vial IVP PRN (01:29)
[2019-08-16 02:51] LABS: #Lymphocytes 0.6 thou/uL (1.20-3.40); #Monocytes 0.2 thou/uL (0.11-0.59); #Neutrophils 13.7 thou/uL (1.40-6.50); %Eosinophils 0.1 % (0.0-10.0); %Lymphocytes 4.1 % (21.0-51.0); %Monocytes 1.2 % (0.0-10.0); %Neutrophils 94.6 % (42.0-75.0); Hemoglobin 16.6 g/dL (12.0-16.0); Mean Corpuscular HGB CONC 32.5 g/dL (32.0-36.0); Mean Corpuscular Hemoglobin 29.5 pg (27.0-31.0); Mean Corpuscular Volume 90.7 fL (78.0-98.0); Mean Platelet Volume 8.3 fL (7.4-10.4); Platelet Count 260 thou/uL (130-400); RBC Distribution Width 12.9 % (11.5-14.5); Red Blood Cell (RBC) Count 5.62 mill/uL (4.20-5.40); White Blood Cell (WBC) Count 14.5 thou/uL (4.8-10.8)
[2019-08-16 03:12] LABS: Troponin I Less than 0.010 ng/mL (< 0.028)
[2019-08-16 03:14] LABS: Anion Gap 13 mmol/L (10-20); BUN (Urea Nitrogen) 10 mg/dL (9.8-20.1); Calc. Creatinine Clearance 73 mL/min (70-130); Calcium 8.3 mg/dL (7.8-10.44); Carbon Dioxide 24 mmol/L (23-31); Chloride 108 mmol/L (98-107); Estimated GFR-MDRD 56; Glucose 200 mg/dL (80-115); Potassium 4.1 mmol/L (3.5-5.1); Sodium 141 mmol/L (136-145)
[2019-08-16] MEDS: ALPRAZolam 0.5 MG TAB PO PRN ×2 (03:38→21:14)
[2019-08-16] MEDS: Nicotine 14 MG PATCH TD SCH (03:39)
--- NOTE | 2019-08-16 05:37 | HP ---
PRIMARY CARE PHYSICIAN: CODE STATUS: Full code. TIME OF EVALUATION: 11:10 p.m. CHIEF COMPLAINT: Shortness of breath. HISTORY OF PRESENT ILLNESS: This is a 63-year-old female patient, everyday smoker with past medical history of COPD, previous history of DVT in the left leg, came to the hospital after having severe gradually worsening shortness of breath associated with nasal congestion, chest tightness. The symptoms have been present for the past 2 weeks with no clear triggers, no alleviating factors. The patient was needed to be placed on BiPAP due to acute hypoxic respiratory failure and increased level of breathing where the patient was getting tired and has been unable to keep saturation above 88 without severe distress. REVIEW OF SYSTEMS: CONSTITUTIONAL: No fever or chills. The patient does have generalized weakness. RESPIRATORY: The patient has cough, sputum production that is brownish and shortness of breath. CARDIOVASCULAR: No chest pain or palpitation. GASTROINTESTINAL: No nausea, vomiting, diarrhea, or abdominal pain. [employer]: No dizziness, headache, or feeling lightheaded. GENITOURINARY: No burning on urination. EXTREMITIES: No leg swelling. All other systems were reviewed and negative except for the findings mentioned above. PAST MEDICAL HISTORY: As mentioned in the HPI. PAST SURGICAL HISTORY: It looks like the patient has pericardiocentesis, cholecystectomy, hysterectomy, eye surgery, ASD repair. PSYCHIATRIC HISTORY: No previous psych history. FAMILY HISTORY: Reviewed, noncontributory for current presentation. SOCIAL HISTORY: The patient currently smokes cigarettes on a daily basis; no willingness to stop; half a pack per day. No alcohol. No drugs. KNOWN ALLERGIES: Doxycycline, iodine, Levaquin, sulfa. REPORTED MEDICATIONS: 1. Gabapentin. 2. Dulera. 3. Furosemide. PHYSICAL EXAMINATION: VITAL SIGNS: On presentation, blood pressure 133/83 with heart rate of 114, respiratory rate was 24, temperature 98.6, pain was 4, oxygen saturation was 88 on room air. The heart rate of the patient has continued to be elevated with the last recorded one in the rate of 115. GENERAL APPEARANCE: The patient is in distress due to acute respiratory failure , feeling uncomfortable with BiPAP; however, she is agreeable to our treatment plan at this point. HEENT: Eyes; normal conjunctivae. Moist oral mucosa. Anicteric. No JVD. RESPIRATORY: Bilateral air entry is decreased. The patient has bilateral wheezing with scattered rales. CARDIOVASCULAR: The patient has tachycardia. Regular rhythm. No murmurs. No gallop. No edema. ABDOMEN: Soft. Normal bowel sounds. MUSCULOSKELETAL: Baseline range of motion and strength. SKIN: Warm, intact. No pallor. No rash. No redness. Capillary refill seems to be intact. NEUROLOGIC: No evidence of any new focal weakness. Cranial nerves seem to be intact. PSYCH: The patient is in good mood. The patient is anxious. DIAGNOSTIC STUDIES: EKG was reviewed. The patient has sinus tachycardia at the rate of 117 with GA 154, QRS 76, and QT corrected 439. Chest CT was done and there was concern for right main pulmonary embolism. LABORATORY DATA: Labs were reviewed. The patient has white count 15.3, hemoglobin 17, neutrophils 78, platelet count 252. Coagulation; PT 12.5, INR 0.9, PTT 35.9. D-dimer 0.99. Blood gas, VBG, 7.47, pCO2 31.8, pO2 53.3. Chemistry; sodium 141 , potassium 3.6, chloride 107, carbon dioxide 25, anion gap 13, BUN 13, creatinine 1.04, GFR 53, glucose 140. Lactic acid 1.7, calcium 9.1, total bilirubin 0.3. LFTs were negative. Troponin was negative. Beta-natriuretic peptide 54.6. Serum total protein 6.8, albumin 3.6, globulin 3.2, yzxdnco-eg-fqzkpdqm ratio is 1.1. ASSESSMENT AND PLAN: The patient will be placed in the hospital with following medical problems: 1. Chronic obstructive pulmonary disease exacerbation. The patient has cough, wheezing, shortness of breath, and respiratory failure. The patient will be started on nebulizers, steroids, and antibiotics. Pulmonary has been consulted. We will follow their recommendations. 2. Sepsis. The patient has leukocytosis and tachypnea, possible source is underlying infection. The patient received fluids. The patient received antibiotics. We will follow. We will monitor cultures and adjust as per sensitivity. 3. Respiratory alkalosis with hypoxia secondary to chronic obstructive pulmonary disease exacerbation. Treatment as above. 4. Everyday smoker. The patient has been counseled, she does not look to be ready to stop smoking. 5. Deep venous thrombosis prophylaxis. 6. History of deep vein thrombosis. There is a possible suspicion for a pulmonary embolism. The patient will get the V/Q scan in the morning. patient has allergies to contrast and she has refused to take the test with iodine. Job ID: [id number] [employer]
[2019-08-16] MEDS: methylPREDNISolone Sod Succ 40 MG VIAL IVP SCH ×3 (05:45→18:02)
[2019-08-16] MEDS ORDERED: Vancomycin HCl 1.5 GM in Sodium Chloride 0.9% 250 ML 300 ML IVPB SCH (06:00)
[2019-08-16] MEDS ORDERED: FLU VACC TS2019-20(65YR UP)/PF 180 MCG/0.5 ML SYRINGE IM ONE (09:00)
[2019-08-16] MEDS: Enoxaparin Sodium 40 MG/0.4 ML SYRINGE SC SCH (09:14)
[2019-08-16] MEDS: Gabapentin 300 MG CAP PO SCH (09:14)
[2019-08-16] MEDS ORDERED: ALPRAZolam 0.5 MG TAB PO SCH (11:30)
--- NOTE | 2019-08-16 15:12 | PDOC.HOSPP ---
- Subjective Encounter Date: 08/16/19 Encounter Time: 15:00 Subjective: f/u for resp failure and COPD exacerbation initially on BiPAP now on NC. Feels better overall. - Objective Vital Signs & Weight: Vital Signs (12 hours) Temp Pulse Resp Pulse Ox 08/16/19 11:11 107 H 25 H 92 L 08/16/19 07:54 95 08/16/19 07:46 99 20 93 L 08/16/19 07:10 96.7 F L 08/16/19 03:41 97.4 F L Weight Weight 180 lb 12.8 oz Most Recent Monitor Data Heart Rate from ECG 109 NIBP 130/89 NIBP BP-Mean 102 Respiration from ECG 26 SpO2 91 I&O: 08/15/19 08/16/19 08/17/19 06:59 06:59 06:59 Intake Total 500 Output Total 750 Balance -250 Result Diagrams: 08/16/19 02:40 08/16/19 02:40 Additional Labs: Microbiology 08/15/19 20:33 Nasal swab Influenza Types A,B Direct EIA - Final 08/15/19 20:21 Venous blood - Right Hand Blood Culture - Preliminary Specimen has been received and culture in progress. No Growth to date. 08/15/19 20:21 Venous blood - Left Arm Blood Culture - Preliminary Specimen has been received and culture in progress. No Growth to date. Radiology Reviewed by me: Yes (V/Q scan - pending) EKG Reviewed by me: Yes (Tele - SR) Hospitalist ROS - Medication Medications: Active Medications Generic Name Dose Route Start Last Admin Trade Name Freq PRN Reason Stop Dose Admin Albuterol/Ipratropium 3 ml 08/16/19 02:30 08/16/19 11:11 Duoneb NEB 3 ml [id number] SULAIMAN Administration Alprazolam 0.5 mg 08/16/19 01:29 08/16/19 03:38 Xanax PO 0.5 mg HS PRN Administration Anxiety Enoxaparin Sodium 40 mg 08/16/19 09:00 08/16/19 09:14 Lovenox SC 40 mg 0900 SULAIMAN Administration Gabapentin 300 mg 08/16/19 09:00 08/16/19 09:14 Neurontin PO 300 mg QAM SULAIMAN Administration Methylprednisolone Sodium Succinate 40 mg 08/16/19 06:00 08/16/19 12:33 Solu-Medrol IVP 40 mg Q6HR SULAIMAN Administration Nicotine 14 mg 08/16/19 01:30 08/16/19 03:39 Nicoderm Patch TD Not Given Q24HR SULAIMAN - Exam General Appearance: NAD, awake alert Eye: PERRL, anicteric sclera ENT: normocephalic atraumatic, no oropharyngeal lesions Neck: supple, symmetric, no JVD, no thyromegaly, no lymphadenopathy Heart: no murmur, no gallops, no rubs, normal peripheral pulses Heart - other findings: tachycardic Respiratory - other findings: diminished in bases, occasional wheezes Gastrointestinal: soft, non-tender, non-distended, normal bowel sounds, no palpable masses Extremities: no cyanosis Skin: normal turgor, no lesions Neurological: cranial nerve grossly intact, no focal deficits, no new deficit Musculoskeletal: normal tone, normal strength Psychiatric: normal affect, A&O x 3 Hosp A/P (1) Acute respiratory failure with hypoxia Code(s): J96.01 - ACUTE RESPIRATORY FAILURE WITH HYPOXIA Status: Acute Plan: Secondary to #2, continue pulmonary supportive mgmt, see below (2) COPD exacerbation Code(s): J44.1 - CHRONIC OBSTRUCTIVE PULMONARY DISEASE W (ACUTE) EXACERBATION Status: Acute Plan: Continue Solumedrol, Zithromax, Rocephin, Duonebs (3) Tobacco abuse Code(s): Z72.0 - TOBACCO USE Status: Chronic Plan: Tobacco cessation resources (4) Anxiety and depression Code(s): F41.9 - ANXIETY DISORDER, UNSPECIFIED; F32.9 - MAJOR DEPRESSIVE DISORDER, SINGLE EPISODE, UNSPECIFIED Status: Chronic Plan: Continue Xanax - 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
--- NOTE | 2019-08-16 16:01 | NM ---
VQ SCAN: HISTORY: COPD and worsening shortness of breath. TECHNIQUE: Ventilation perfusion scan was performed using 25 mCi Xenon 133 by inhalation for the ventilation barrington dy followed by the intravenous administration of 6.4 mCi Technetium-MAA for the perfusion scan. FINDINGS: Correlation is made with the chest radiograph from the previous night. There is inhomogeneity in the distribution of asymmetrical ventilation perfusion scans with small mat ch defects. No mismatched pleural-based wedge-shaped segmental or subsegmental perfusion defects are seen. There is tracer retention on the washout phase of the ventilation scan consistent with COPD. IMPRESSION: Low probability for pulmonary embolism. POS: OFF
[2019-08-16] MEDS ORDERED: Gabapentin 300 MG CAP PO SCH (21:00)
[2019-08-16] MEDS ORDERED: cefTRIAXone\\ROCEPHIN 1 GM in Sodium Chloride 0.9% 100 ML IVPB SCH (22:00)
[2019-08-16] MEDS ORDERED: Azithromycin 500 MG in Sodium Chloride 0.9% 250 ML 250 ML IVPB SCH (22:00)
[2019-08-17] MEDS: methylPREDNISolone Sod Succ 40 MG VIAL IVP SCH ×3 (00:40→13:08)
[2019-08-17] MEDS: Nicotine 14 MG PATCH TD SCH (03:21)
[2019-08-17] MEDS: Enoxaparin Sodium 40 MG/0.4 ML SYRINGE SC SCH (09:04)
[2019-08-17] MEDS: Gabapentin 300 MG CAP PO SCH (09:04)
[2019-08-17 13:57] VITALS: TEMP 98.1
--- NOTE | 2019-08-17 14:03 | PDOC.EVN ---
Event Note - Event Note Event Note: Pt requiring continuous O2 supplementation at 3L/min NC to maintain saturations in low 90's. Will coordinate for home O2 setup via NC.
--- NOTE | 2019-08-18 00:14 | DIS ---
DATE OF ADMISSION: 08/15/2019 DATE OF DISCHARGE: 08/17/2019 DISCHARGE DIAGNOSES: 1. Acute on chronic hypoxic respiratory failure secondary to #2 with oxygen requirement of 3 L/minute by nasal cannula. 2. Chronic obstructive pulmonary disease exacerbation, improved. 3. Tobacco abuse. 4. Anxiety/depression. CONSULTATIONS: None. PERTINENT LABORATORY AND X-RAY FINDINGS: BNP 55. Troponin I negative x3. Total CK of 57. CBC showed a white blood cell count ranging between 14.5 to 15.3, hemoglobin ranged between 16.6 to 17.2. Blood cultures x2 dated 08/15/2019, showed no growth to date. Influenza A and B antigen dated 08/15/2019, negative. Portable chest x-ray dated 08/15/2019, showed cardiomegaly with mild vascular prominence. Increased infiltrate in the right mid and lower lung zone. CT of the chest without contrast dated 08/15/2019, showed right main pulmonary artery density on noncontrast study. Chronic changes with atelectasis without focal infiltrate. Ventilation-perfusion scan dated 08/16/2019, showed low probability for pulmonary embolus. HOSPITAL COURSE: The patient was initially admitted to the intermediate care unit after presenting with increased shortness of breath in the context of known chronic obstructive pulmonary disease and tobacco use. The patient was placed on BiPAP noninvasive mechanical ventilation to maintain O2 saturations as well as control of respiratory distress. The patient clinically improved with aggressive pulmonary supportive management including IV Solu-Medrol, IV Zithromax, and bronchodilator therapy with DuoNeb and continuation of Dulera. The patient was unable to wean off oxygen support, requiring 3 L/minute by nasal cannula. The patient was evaluated for home oxygen therapy and being coordinated for outpatient home oxygen at discharge. Overall, the patient did clinically stabilize with aggressive pulmonary supportive management with recommendations for tobacco cessation. I have examined the patient at the time of discharge and discussed followup instructions. The patient verbalized understanding and in agreement, ready for discharge on 08/17/2019. DISCHARGE MEDICATIONS: 1. Alprazolam 0.5 mg p.o. at bedtime p.r.n. 2. Cefdinir 300 mg p.o. b.i.d. 3. Gabapentin 300 mg p.o. q.a.m. and 600 mg p.o. at bedtime. 4. Dulera 2 puffs inhaled b.i.d. 5. DuoNeb 3 mL nebulized q.6 hours p.r.n. 6. Prednisone 20 mg, take two tablets p.o. daily x5 days followed by 1 tablet p.o. daily x5 days followed by half a tablet p.o. daily x5 days. FOLLOWUP: The patient may follow up with her primary care provider, Dr. Rae Benson within 3 days of discharge. CONDITION ON DISCHARGE: Fair. ACTIVITY: Ad-myrna. DIET: Heart healthy. CODE STATUS: Full. DISPOSITION: Home on 08/17/2019. TIME SPENT: Total time preparing and coordinating discharge, 33 minutes. Job ID: [id number]
--- NOTE | 2019-08-18 08:27 | PQF ---
[employer] Work[employer] Crystal Reports Winform ViewerMOFFETTISMAEL ELVISEUGENIO [id number] CLINICAL DOCUMENTATION CLARIFICATION FORM: POST DISCHARGE Addendum to original discharge summary date: ____ Late entry note date: __ DATE:08/18/2019 ATTN:EUGENIO LEAL Please exercise your independent, professional judgment in responding to the clarification form. Clinical indicators are provided on the bottom of this form for your review Please check appropriate box(s) to clarify if the following diagnosis has been ruled in or ruled out: Sepsis [ ] Ruled in diagnosis [ ] Continue to treat [ ] Resolved [ ] Ruled out diagnosis [x ] Cannot rule out diagnosis [ ] Other diagnosis [ ] Unable to determine For continuity of documentation, please document condition throughout progress notes and discharge summary. Thank You. CLINICAL INDICATORS - SIGNS / SYMPTOMS / LABS - Sepsis-H&P, 08/16, EUGENIO LEAL - The patient has leukocytosis and tachypnea-H&P, 08/16ELVIS ABDIER -Temp: 98.6, RR:24, Pulse:114-H&P, 08/16ELVIS ABDIER - WBC: 15.3-H&P, 08/16ELVIS ABDIER -Respiratory alkalosis with hypoxia-H&P, 08/16, EUGENIO LEAL RISK FACTORS -Acute respiratory failure -H&P, 08/16, EUGENIO LEAL -COPD exacerbation-H&P, 08/16ELVIS ABDIER TREATMENTS -Rocephin.IV-MAR, 08/16 -Azithromycin.IVMAR, 08/16 (This form is maintained as a part of the permanent medical record) 2014 [employer]. All Rights Reserved Hever Cisse [not provided] [not provided] MIR[employer]LE
--- NOTE | 2019-08-22 02:14 | EKG ---
Test Reason : Blood Pressure : / mmHG Vent. Rate : 117 BPM Atrial Rate : 117 BPM P-R Int : 154 ms QRS Dur : 076 ms QT Int : 308 ms P-R-T Axes : 040 102 024 degrees QTc Int : 429 ms Sinus tachycardia Possible Left atrial enlargement Possible Right ventricular hypertrophy Abnormal ECG Confirmed by FAUZIA JAIMES M.D. ([id number]), magazine editor CORONA ANAYA ([id number]) on 08/22/2019 2:14:07 AM Referred By: Confirmed By:FAUZIA JAIMES M.D.
== END 2019-08-17 15:43 | disposition home or self-care (01) | DRG 871 ==
LOC: ERS 19:46 → IMCU/EMU 23:21
PROVIDERS: ADMIT Hospitalist; ATTEND Hospitalist
PROC: 5A09457 Assistance with Respiratory Ventilation, 24-96 Consecutive Hours, Continuous Positive Airway Pressure (ICD-10-PCS; principal; 2019-08-15)
DX: A41.9 Sepsis, unspecified organism (principal); J96.21 Acute and chronic respiratory failure with hypoxia; J44.1 Chronic obstructive pulmonary disease with (acute) exacerbation; E87.3 Alkalosis; F17.210 Nicotine dependence, cigarettes, uncomplicated; F41.9 Anxiety disorder, unspecified; F32.9 Major depressive disorder, single episode, unspecified; Z90.710 Acquired absence of both cervix and uterus; Z88.2 Allergy status to sulfonamides; Z88.8 Allergy status to other drugs, medicaments and biological substances; Z91.041 Radiographic dye allergy status; Z86.718 Personal history of other venous thrombosis and embolism
CPT/HCPCS: 36415; 71045; 71250; 78582; 80048; 80053; 82330; 82550; 82803; 83605; 83880; 84484; 85025; 85379; 85610; 85730; 87040; 87804; 93005; 94640; 94660; 94760; 96360; 96365; 96367; 96368; 96372; 96375; A9540; A9558; J0456; J0696; J1650; J2405; J2920; J2930; J3370; J3475; J3490; J7050; J7611; J7620

== ENCOUNTER 2019-08-25 14:28 | Outpatient (CLI) | payer MEDICARE, OTHER ==
--- NOTE | 2019-08-25 15:12 | ULT ---
LEFT LOWER EXTREMITY VENOUS DOPPLER ULTRASOUND: 08/25/2019 HISTORY: Pain. Assess for DVT. COMPARISON: None. TECHNIQUE: Multiplanar rosario-scale sonographic imaging of the venous structures of the left lower extremity obtai chidi with color-flow and spectral analysis. FINDINGS: The left common femoral vein, greater saphenous vein, profunda femoral vein, femoral vein, popliteal vein and posterior tibial vein are patent. Normal blood flow, augmentation and compression within the deep venous system on the left. No evidence for DVT. IMPRESSION: No evidence for deep venous thrombosis of the left lower extremity. POS: TPC
--- NOTE | 2019-08-25 15:16 | RAD ---
XR Foot Lt 3 View STANDARD HISTORY: left foot pain FINDINGS: No fracture or dislocation is identified. No bony destruction or periosteal reaction is seen. There a re posterior and plantar calcaneal spurs. No radiopaque foreign body is seen.
== END 2019-08-25 14:29 | disposition home or self-care (01) ==
LOC: ULT 14:28
PROVIDERS: ATTEND Family Medicine
DX: M79.672 Pain in left foot (principal); M77.32 Calcaneal spur, left foot

== ENCOUNTER 2019-10-23 16:41 | Observation (INO) | payer MEDICARE, OTHER ==
[2019-10-23] MEDS ORDERED: Acetaminophen 500 MG TAB ONE ×2 (17:24→17:46)
[2019-10-23] MEDS ORDERED: Ibuprofen 200 MG TAB ONE ×2 (17:24→17:46)
[2019-10-23 17:32] LABS: #Eosinphils 0.1 thou/uL (0.0-0.7); #Lymphocytes 1.2 thou/uL (1.20-3.40); #Monocytes 0.8 thou/uL (0.11-0.59); #Neutrophils 5.8 thou/uL (1.40-6.50); %Basophils 0.6 % (0.0-1.0); %Eosinophils 1.9 % (0.0-10.0); %Lymphocytes 15.1 % (21.0-51.0); %Neutrophils 72.4 % (42.0-75.0); Hemoglobin 16.5 g/dL (12.0-16.0); Mean Corpuscular HGB CONC 34.4 g/dL (32.0-36.0); Mean Corpuscular Hemoglobin 30.6 pg (27.0-31.0); Mean Corpuscular Volume 89.2 fL (78.0-98.0); Mean Platelet Volume 8.2 fL (7.4-10.4); Platelet Count 259 thou/uL (130-400); RBC Distribution Width 12.6 % (11.5-14.5); Red Blood Cell (RBC) Count 5.39 mill/uL (4.20-5.40)
--- NOTE | 2019-10-23 17:34 | RAD ---
Chest AP view INDICATION: Chest pain COMPARISON: August 15, 2019 FINDINGS: Lungs:Scattered subsegmental volume loss Cardiac silhouette:Stable cardiomegaly and post-CABG change Pulmonary vasculature:Normal Pleural spaces:No pleural effusion or pneumothorax is demonstrated. Upper abdomen:No abnormality seen. Osseous structures: No acute osseous abnormality. Additional findings:None. IMPRESSION: Nonspecific scattered subsegmental volume loss. Stable cardiomegaly
[2019-10-23 17:53] LABS: ALT (SGPT) 13 U/L (8-55); AST (SGOT) 17 U/L (5-34); Alkaline Phosphatase 86 U/L (40-110); Anion Gap 13 mmol/L (10-20); BUN (Urea Nitrogen) 9 mg/dL (9.8-20.1); Bilirubin, Total 0.8 mg/dL (0.2-1.2); Calc. Creatinine Clearance 0 mL/min (70-130); Calcium 9.8 mg/dL (7.8-10.44); Carbon Dioxide 30 mmol/L (23-31); Chloride 100 mmol/L (98-107); Estimated GFR-MDRD 53; Glucose 111 mg/dL (80-115); Lipase 15 U/L (8-78); Potassium 4.1 mmol/L (3.5-5.1); Sodium 139 mmol/L (136-145)
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
[2019-10-23 20:02] LABS: Bilirubin Negative (Negative); Blood, Urine Negative (Negative); Clarity Clear (Clear); Glucose, Urine (Dipstick) Normal (Negative); Leukocyte Negative Leu/uL (Negative); Nitrite Negative (Negative); Protein, Urine (Dipstick) 10 mg/dL (Neg-Trace)
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
[2019-10-23] MEDS ORDERED: Acetaminophen 325 MG TAB PO PRN (20:56)
[2019-10-23] MEDS ORDERED: Ondansetron ODT 4 MG TAB PO PRN (20:56)
[2019-10-23] MEDS ORDERED: Cefepime 2 GM VIAL ONE (21:30)
[2019-10-23] MEDS ORDERED: Enoxaparin Sodium 80 MG/0.8 ML SYRINGE ONE (21:30)
[2019-10-23] MEDS ORDERED: metroNIDAZOLE 500 MG in Premix Bag 1 BAG IVPB SCH (21:45)
[2019-10-23] MEDS ORDERED: cefTRIAXone\\ROCEPHIN 1 GM in Sodium Chloride 0.9% 100 ML IVPB SCH (22:00)
--- NOTE | 2019-10-23 22:22 | PDOC.EVN ---
Event Note - Event Note Event Note: [id number]
[2019-10-24 00:09] VITALS: BMI 30.2
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
[2019-10-24] MEDS: Famotidine 20 MG TAB PO SCH ×2 (00:35→08:23)
[2019-10-24 05:30] LABS: ALT (SGPT) 9 U/L (8-55); AST (SGOT) 12 U/L (5-34); Albumin 3.1 g/dL (3.4-4.8); Alkaline Phosphatase 72 U/L (40-110); Anion Gap 12 mmol/L (10-20); BUN (Urea Nitrogen) 11 mg/dL (9.8-20.1); Bilirubin, Total 0.5 mg/dL (0.2-1.2); Calc. Creatinine Clearance 73 mL/min (70-130); Calcium 9.1 mg/dL (7.8-10.44); Carbon Dioxide 29 mmol/L (23-31); Chloride 106 mmol/L (98-107); Estimated GFR-MDRD 58; Globulin 2.4 g/dL (2.4-3.5); Glucose 150 mg/dL (80-115); Potassium 3.1 mmol/L (3.5-5.1); Protein, Total 5.5 g/dL (6.0-8.3); Sodium 144 mmol/L (136-145)
[2019-10-24 05:33] LABS: Band 8 % (5-11); Eosinophils 3 % (0-10); Hemoglobin 14.6 g/dL (12.0-16.0); Lymphocytes 21 % (21-51); MDiff Complete? YES; Mean Corpuscular HGB CONC 33.3 g/dL (32.0-36.0); Mean Corpuscular Hemoglobin 29.8 pg (27.0-31.0); Mean Corpuscular Volume 89.5 fL (78.0-98.0); Mean Platelet Volume 8.5 fL (7.4-10.4); Monocytes 13 % (0-10); Neutrophil 55 % (42-75); Platelet Count 213 thou/uL (130-400); Platelet Morphology Comment Appears Adequate; RBC Distribution Width 12.7 % (11.5-14.5); RBC Morphology Normal; White Blood Cell (WBC) Count 5.7 thou/uL (4.8-10.8)
[2019-10-24 07:35] VITALS: BP 110/58; TEMP 98.5
[2019-10-24] MEDS: Potassium Chloride 20 MEQ TAB PO SCH ×2 (08:23→10:30)
[2019-10-24] MEDS ORDERED: metroNIDAZOLE 500 MG in Premix Bag 1 BAG IVPB SCH (09:00)
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
== END 2019-10-24 11:41 | disposition home or self-care (01) ==
LOC: ERS 16:41 → 2SW 20:33
PROVIDERS: ADMIT Internal Medicine; ATTEND Internal Medicine
DX: M54.9 Dorsalgia, unspecified (principal); M54.2 Cervicalgia; R50.9 Fever, unspecified; M79.601 Pain in right arm; J44.1 Chronic obstructive pulmonary disease with (acute) exacerbation; K57.30 Diverticulosis of large intestine without perforation or abscess without bleeding; F32.9 Major depressive disorder, single episode, unspecified; F41.9 Anxiety disorder, unspecified; E87.6 Hypokalemia; M85.88 Other specified disorders of bone density and structure, other site; M47.892 Other spondylosis, cervical region; V89.2XXA Person injured in unspecified motor-vehicle accident, traffic, initial encounter; Z79.899 Other long term (current) drug therapy; Z87.891 Personal history of nicotine dependence; Z88.2 Allergy status to sulfonamides; Z88.1 Allergy status to other antibiotic agents; Z91.041 Radiographic dye allergy status; J96.10 Chronic respiratory failure, unspecified whether with hypoxia or hypercapnia; Z98.890 Other specified postprocedural states; Z86.79 Personal history of other diseases of the circulatory system; Z86.718 Personal history of other venous thrombosis and embolism; I27.82 Chronic pulmonary embolism; M18.11 Unilateral primary osteoarthritis of first carpometacarpal joint, right hand; M81.0 Age-related osteoporosis without current pathological fracture; Z99.81 Dependence on supplemental oxygen
CPT/HCPCS: 70450; 71045; 71250; 72125; 73030; 73060; 73080; 73130; 74176; 80053 ×2; 81003; 82550; 83690; 83735; 84484; 85007; 85025; 85027; 87040; 87804 ×2; 94640 ×3; 94760; 96361; 96365; 96366 ×2; 96372; 96376; 99285; G0378 ×2; 36415; J0692; J1650; J7620

== ENCOUNTER 2019-12-28 09:30 | Inpatient (IN) | payer MEDICARE, OTHER ==
[2019-12-28 10:20] LABS: ALT (SGPT) 12 U/L (8-55); AST (SGOT) 10 U/L (5-34); Albumin 4.1 g/dL (3.4-4.8); Alkaline Phosphatase 94 U/L (40-110); Anion Gap 14 mmol/L (10-20); BUN (Urea Nitrogen) 11 mg/dL (9.8-20.1); Bilirubin, Total 1.1 mg/dL (0.2-1.2); Calc. Creatinine Clearance 0 mL/min (70-130); Calcium 10.2 mg/dL (7.8-10.44); Carbon Dioxide 25 mmol/L (23-31); Chloride 103 mmol/L (98-107); Estimated GFR-MDRD 52; Globulin 3.9 g/dL (2.4-3.5); Glucose 131 mg/dL (80-115); Potassium 3.9 mmol/L (3.5-5.1); Sodium 138 mmol/L (136-145)
[2019-12-28 10:24] LABS: Hemoglobin 18.3 g/dL (12.0-16.0); Mean Corpuscular HGB CONC 32.8 g/dL (32.0-36.0); Mean Corpuscular Hemoglobin 30.1 pg (27.0-31.0); Mean Corpuscular Volume 91.7 fL (78.0-98.0); Mean Platelet Volume 9.6 fL (7.4-10.4); Platelet Count 195 thou/uL (130-400); RBC Distribution Width 12.5 % (11.5-14.5); Red Blood Cell (RBC) Count 6.07 mill/uL (4.20-5.40); White Blood Cell (WBC) Count 18.1 thou/uL (4.8-10.8)
[2019-12-28] MEDS ORDERED: cefTRIAXone\\ROCEPHIN 1 GM VIAL ONE (10:24)
[2019-12-28 10:44] LABS: Band 21 % (5-11); Lymphocytes 4 % (21-51); MDiff Complete? YES; Monocytes 5 % (0-10); Neutrophil 70 % (42-75); RBC Morphology Normal
[2019-12-28] MEDS ORDERED: Azithromycin 500 MG VIAL ONE (11:56)
--- NOTE | 2019-12-28 12:15 | RAD ---
PORTABLE CHEST: Date: 12/28/2019 HISTORY: Cough with fever. COMPARISON: 10/23/2019 exam. FINDINGS: Heart size is enlarged. There are postop sternotomy changes present. Parenchymal lung changes noted i n the left lung appear fairly similar to the prior examination. Changes in the right mid lung field a re slightly more confluent than on that exam. IMPRESSION: 1. Cardiomegaly. 2. Worsening parenchymal lung changes in the right mid lung field. POS: [facility]
[2019-12-28] MEDS ORDERED: Acetaminophen 650 MG Suppository PR PRN (13:36)
[2019-12-28] MEDS ORDERED: Ondansetron ODT 4 MG TAB PO PRN (13:36)
[2019-12-28] MEDS ORDERED: Ondansetron PF 4 MG/2 ML Vial IVP PRN (13:36)
[2019-12-28] MEDS ORDERED: Azithromycin 500 MG in Sodium Chloride 0.9% 250 ML 250 ML IVPB SCH (13:36)
[2019-12-28] MEDS ORDERED: Guaifenesin DM 100-10/5 ML UDCUP PO PRN (13:36)
[2019-12-28] MEDS ORDERED: Acetaminophen 325 MG TAB PO PRN (13:36)
[2019-12-28] MEDS ORDERED: Acetaminophen 325 MG TAB ONE (14:41)
--- NOTE | 2019-12-28 14:52 | HP ---
PRIMARY CARE PHYSICIAN: Dr. Benson. CHIEF COMPLAINT: Cough and fevers. HISTORY OF PRESENT ILLNESS: This is a 64-year-old female with a history of COPD on intermittent 2 L home oxygen and Dulera and albuterol inhaler as needed. She was in her normal state of health until yesterday. She started to have cough, productive of green and yellow sputum, and some increased shortness of breath, no wheezing, but then a fever up to 102. Today, the patient still felt really bad with aching all over, and so she presented to the emergency room. In the ER, she was found to have a new right middle lobe pneumonia and a leukocytosis of 18,000 with a low-grade temperature of 100.2. She was also found to be severely tachycardic in the 130s, and so was given Rocephin, azithromycin, and 2 L of fluid. She still somewhat tachycardic, though improved, and she is being admitted to the hospital. REVIEW OF SYSTEMS: CONSTITUTIONAL: See HPI. EYES: No double vision or blurred vision. ENT: She has had some runny nose, but no sore throat. CARDIOVASCULAR: No chest pain. She has not noticed any palpitations or racing heart. PULMONARY: Positive for coughing, shortness of breath. No wheezing or chest tightness, and she has not needed to use her albuterol inhaler more than normal. GASTROINTESTINAL: No abdominal pain. She has had some nausea. No vomiting. No diarrhea or constipation. GENITOURINARY: No dysuria or hematuria. MUSCULOSKELETAL: She has diffuse myalgias, but no focal symptoms. SKIN: No rashes or other lesions she has noted. NEUROLOGIC: No numbness, tingling, or focal weakness. PAST MEDICAL HISTORY: 1. COPD with intermittent home oxygen. 2. Deep venous thrombosis/without PE, finished the course of treatment and resolution. 3. Atrial septal defect, status post repair. 4. Peripheral neuropathy. 5. Chronic low back pain. PAST SURGICAL HISTORY: 1. ASD repair. 2. Cholecystectomy. 3. Abdominal hysterectomy. 4. Appendectomy. 5. Bladder surgery. 6. Eye surgery. 7. Pericardial window due to concern for pericardial effusion without much effusion found. SOCIAL HISTORY: The patient smokes half pack per day. She has tried quitting multiple times, but has gotten back on cigarettes recently. No alcohol or illicit drug use. She is hard of hearing. FAMILY HISTORY: Both parents of lung cancer. ALLERGIES: 1. LEVAQUIN. 2. DOXYCYCLINE. 3. SULFA ANTIBIOTICS. 4. IODINATED CONTRAST, WHICH SHE STATES CAUSES HER ALMOST PASS OUT. PAST PSYCHIATRIC HISTORY: Positive for insomnia, anxiety, and depression. CURRENT MEDICATIONS: 1. Dulera 100/5 mcg two puffs inhaled twice a day. 2. Gabapentin 300 mg in the morning and 600 mg at night. 3. Alprazolam 0.25 mg at night as needed. 4. Furosemide 40 mg daily. 5. Potassium chloride 20 mEq daily. PHYSICAL EXAMINATION: VITAL SIGNS: Blood pressure 162/68; pulse 130 initially, now on my exam she is down to the low 100s; respirations 20; temperature 100.2; O2 saturations 93% on room air. GENERAL: This is a well-developed, well-nourished white female, in no acute distress. HEENT: Pupils are equal, round, and reactive to light. Oropharynx clear without lesions, erythema, or exudate. NECK: Supple. No lymphadenopathy. No thyroid nodules or enlargement. No JVD. HEART: Regular rate and rhythm. No murmurs, rubs, or gallops. LUNGS: She has some junky breath sounds bilaterally, but no wheezes. No focal findings. Good air movement throughout. No increased work of breathing, currently on oxygen. ABDOMEN: Soft, nontender to palpation. Normoactive bowel sounds. No hepatosplenomegaly or other masses. EXTREMITIES: No clubbing, cyanosis, or edema. SKIN: No rashes or other lesions noted. NEUROLOGIC: Intact strength and sensation in all extremities. No facial droop. PSYCHIATRIC: Alert and oriented x3. Normal mood and affect. LABORATORY DATA: White blood cell count 18,000 with 21% bands, hemoglobin 18, hematocrit 55, platelet count 195. Complete metabolic panel is notable for glucose of 131. The rest was normal. Lactic acid was normal at 1.8. Procalcitonin was normal at 0.14. IMAGING STUDIES: Chest x-ray, I did review the chest x-ray done in the emergency room along with the radiologist's report. The patient has had some previous nonspecific volume loss bilaterally including in the right middle lung. However, on the current film, it does show new severely worsen parenchymal changes in the right mid lung field consistent with an infiltrate. She also has stable cardiomegaly and postop sternotomy changes. EKG done in the emergency room shows sinus tachycardia without any significant ST changes. Influenza screen has been ordered from the emergency room, but no results back yet. ASSESSMENT: 1. Community-acquired pneumonia with sepsis. We will continue running IV fluids until the heart rate comes down to normal. We will control fever with Tylenol as needed. We will continue Rocephin and azithromycin started in the emergency room. Blood cultures have been sent. The patient does not show any lactic acidosis at this time and has no worsening of her chronic respiratory failure, so she seems stable for the telemetry floor at this time, so we will admit her there. Should we able to get her tachycardia eventually under control, can transfer her to the medical floor. 2. Chronic obstructive pulmonary disease. We will continue Dulera and DuoNeb. I do not see any evidence of significant worsening of her chronic obstructive pulmonary disease at this time, so we will hold off on steroids for now. We will consult Dr. Peoples, the patient's district wildlife manager for assistance with this case. 3. Peripheral neuropathy. We will continue gabapentin. 4. Gastrointestinal prophylaxis, put the patient on Pepcid twice a day. 5. Deep venous thrombosis prophylaxis, put the patient on subcu Lovenox. CODE STATUS: I did discuss this with the patient. She is a full code. Should she be incapacitated, she states that her sister would be her medical decision maker, her name is Lainey Raymundo. Job ID: [id number]
[2019-12-28 15:52] VITALS: BMI 29.8
[2019-12-28] MEDS: Sodium Chloride 0.9% 1,000 ML IV SCH ×2 (15:56→23:11)
--- NOTE | 2019-12-28 17:41 | CON ---
DATE OF CONSULTATION: HISTORY OF PRESENT ILLNESS: Ligia Mcpherson is a 64-year-old morbidly obese female, presents with cough, congestion, fever, chills, yellow sputum for several days duration. X-ray shows cardiomegaly, bilateral infiltrates. She still smokes half a pack a day on most days. She says she could walk up to a block without getting markedly short of breath. She has associated wheezing. PAST MEDICAL HISTORY: Pertinent for previous DVT, COPD, chronic asthma, obesity. PREVIOUS SURGERIES: ASD repair several years ago. Cholecystectomy. SOCIAL HISTORY: Tobacco, half pack a day. HOME MEDICATIONS: 1. Dulera 100. 2. Gabapentin 600. 3. Lasix 40. 4. Tylenol. 5. Xanax. ALLERGIES: IODINE, SULFA, DOXY, LEVAQUIN. REVIEW OF SYSTEMS: Otherwise 10-point negative. PHYSICAL EXAMINATION: VITAL SIGNS: Temperature 98, pulse 108, respiratory rate 22, saturations 92 on 2 L. CHEST: Diffuse wheezing. CARDIAC: Normal S1 and S2. No gallops. ABDOMEN: No masses. LABORATORY DATA: White count 18,000, hemoglobin and hematocrit are 18 and 55, platelet count is normal. Lytes are normal. IMPRESSION: 1. Chronic obstructive pulmonary disease exacerbation, bronchitis, superimposed pneumonia. 2. Cardiomegaly secondary to long-standing ASD. 3. Ongoing tobacco abuse, anxiety. PLAN: I agree with present treatment. Antibiotics, neb treatments, steroids. We will notify Dr. Peoples. Consultation note, 70 minutes, 50% direct patient care. Job ID: [id number]
[2019-12-28] MEDS: Mometasone/Formoterol 120 PUFF INHALER INH SCH (18:36)
[2019-12-28] MEDS: methylPREDNISolone Sod Succ 40 MG VIAL IVP SCH ×2 (18:43→23:11)
[2019-12-28] MEDS: ALPRAZolam 0.5 MG TAB PO PRN (20:38)
[2019-12-28] MEDS: Gabapentin 300 MG CAP PO SCH (20:38)
[2019-12-28] MEDS: Famotidine 20 MG TAB PO SCH (20:39)
[2019-12-29 05:29] LABS: Anion Gap 13 mmol/L (10-20); BUN (Urea Nitrogen) 15 mg/dL (9.8-20.1); Calc. Creatinine Clearance 82 mL/min (70-130); Calcium 8.9 mg/dL (7.8-10.44); Carbon Dioxide 21 mmol/L (23-31); Chloride 113 mmol/L (98-107); Estimated GFR-MDRD 68; Glucose 152 mg/dL (80-115); Potassium 4.4 mmol/L (3.5-5.1); Sodium 143 mmol/L (136-145)
[2019-12-29 05:59] LABS: Band 16 % (5-11); Hemoglobin 16.1 g/dL (12.0-16.0); Lymphocytes 9 % (21-51); MDiff Complete? YES; Mean Corpuscular HGB CONC 32.9 g/dL (32.0-36.0); Mean Corpuscular Hemoglobin 30.4 pg (27.0-31.0); Mean Corpuscular Volume 92.5 fL (78.0-98.0); Mean Platelet Volume 9.5 fL (7.4-10.4); Neutrophil 75 % (42-75); Platelet Count 171 thou/uL (130-400); RBC Distribution Width 12.4 % (11.5-14.5); Red Blood Cell (RBC) Count 5.28 mill/uL (4.20-5.40); White Blood Cell (WBC) Count 13.5 thou/uL (4.8-10.8)
[2019-12-29] MEDS: methylPREDNISolone Sod Succ 40 MG VIAL IVP SCH ×2 (06:20→12:25)
[2019-12-29] MEDS: Mometasone/Formoterol 120 PUFF INHALER INH SCH ×2 (06:50→19:23)
[2019-12-29] MEDS: Gabapentin 300 MG CAP PO SCH ×2 (09:43→20:23)
[2019-12-29] MEDS: Enoxaparin Sodium 40 MG/0.4 ML SYRINGE SC SCH (09:43)
[2019-12-29] MEDS: cefTRIAXone\\ROCEPHIN 1 GM in Sodium Chloride 0.9% 100 ML IVPB SCH (09:43)
[2019-12-29] MEDS: Sodium Chloride 0.9% 1,000 ML IV SCH ×2 (09:44→20:30)
--- NOTE | 2019-12-29 11:01 | PRG ---
DATE OF SERVICE: 12/29/2019 SUBJECTIVE: The patient feels better today. She had no acute complaints. OBJECTIVE: VITAL SIGNS: Temperature 97.4, pulse 76, respirations 20, and O2 saturation 88% on 2 L. HEENT: Unremarkable. NECK: No adenopathy or JVD. LUNGS: Clear without wheezing or rhonchi. CARDIAC: S1 and S2. Regular. ABDOMEN: Soft. EXTREMITIES: No edema. LABORATORY DATA: White blood cell count 13, hematocrit 48.9, and platelet count 171. Sodium 143, potassium 4.4, chloride 113, CO2 of 21, BUN 15, creatinine 0.8, and glucose 152. ASSESSMENT: 1. Bilateral pneumonia. 2. Chronic obstructive pulmonary disease with exacerbation. 3. Tobacco abuse. PLAN: 1. Continue steroids, nebulization treatments, antibiotics, and oxygen. 2. Can move to medical floor. Job ID: [id number]
[2019-12-29] MEDS: Azithromycin 500 MG in Sodium Chloride 0.9% 250 ML 250 ML IVPB SCH (12:25)
--- NOTE | 2019-12-29 16:15 | PDOC.HOSPP ---
- Subjective Encounter Date: 12/29/19 Encounter Time: 10:15 Subjective: breathing better now, is ambulating in room is worried steroids are making her very jittery, wants iv steroids taken off. - Objective Vital Signs & Weight: Vital Signs (12 hours) Temp Pulse Pulse Pulse Resp BP BP 12/29/19 14:45 95 20 12/29/19 11:20 98.8 F 86 16 12/29/19 10:47 90 20 12/29/19 09:34 109 H 107 H 110/64 111/60 12/29/19 07:42 97.5 F L 89 18 12/29/19 06:54 12/29/19 06:53 76 20 12/29/19 06:50 76 20 BP Pulse Ox Pulse Ox Pulse Ox 12/29/19 14:45 91 L 12/29/19 11:20 107/58 L 94 L 12/29/19 10:47 92 L 12/29/19 09:34 96 90 L 12/29/19 07:42 121/77 94 L 12/29/19 06:54 88 L 12/29/19 06:53 87 L 12/29/19 06:50 87 L Weight Admit Weight 173 lb 11.2 oz Weight 173 lb 11.2 oz I&O: 12/28/19 12/29/19 12/30/19 06:59 06:59 06:59 Intake Total 1979 Balance 1979 Result Diagrams: 12/29/19 04:36 12/29/19 04:36 Hospitalist ROS - Medication Medications: Active Medications Generic Name Dose Route Start Last Admin Trade Name Freq PRN Reason Stop Dose Admin Albuterol/Ipratropium 3 ml 12/28/19 13:37 12/28/19 16:35 Duoneb NEB 3 ml Q4H PRN Administration SOB &/or Wheezing Albuterol/Ipratropium 3 ml 12/28/19 19:00 12/29/19 14:45 Duoneb NEB 3 ml [id number] SULAIMAN Administration Alprazolam 0.25 mg 12/28/19 13:36 12/28/19 20:38 Xanax PO 0.25 mg HS PRN Administration Anxiety Enoxaparin Sodium 40 mg 12/29/19 09:00 12/29/19 09:43 Lovenox SC Not Given 0900 SULAIMAN Famotidine 20 mg 12/28/19 21:00 12/28/19 20:39 Pepcid PO Not Given 2100 SULAIMAN Gabapentin 300 mg 12/29/19 09:00 12/29/19 09:43 Neurontin PO 300 mg QAM SULAIMAN Administration Gabapentin 600 mg 12/28/19 21:00 12/28/19 20:38 Neurontin PO 600 mg HS SULAIMAN Administration Ceftriaxone Sodium 1 gm/ 100 mls @ 200 mls/hr 12/29/19 10:00 12/29/19 09:43 Sodium Chloride IVPB 100 mls 1000 SULAIMAN Administration Sodium Chloride 1,000 mls @ 100 mls/hr 12/28/19 13:36 12/29/19 09:44 Normal Saline 0.9% IV 1,000 mls .Q10H SULAIMAN Administration Azithromycin 500 mg/ Sodium 250 mls @ 250 mls/hr 12/29/19 12:00 12/29/19 12: 25 Chloride IVPB 250 mls 1200 SULAIMAN Administration Mometasone Furoate/Formoterol Fumar 2 puff 12/28/19 18:30 12/29/19 06:50 Dulera 100 Mcg/5 Mcg Inhaler INH 2 puff BID-RT SULAIMAN Administration - Exam General Appearance: awake alert Eye: PERRL, anicteric sclera ENT: no oropharyngeal lesions, moist mucosa Neck: supple, no JVD Heart: RRR, no murmur Respiratory: no rales, rhonchi, wheezes Gastrointestinal: soft, non-tender, non-distended, normal bowel sounds Extremities: no cyanosis, no edema Neurological: cranial nerve grossly intact, no focal deficits Psychiatric: A&O x 3 Hosp A/P (1) Acute respiratory failure with hypoxia Code(s): J96.01 - ACUTE RESPIRATORY FAILURE WITH HYPOXIA Status: Acute (2) COPD exacerbation Code(s): J44.1 - CHRONIC OBSTRUCTIVE PULMONARY DISEASE W (ACUTE) EXACERBATION Status: Acute (3) Community acquired bacterial pneumonia Code(s): J15.9 - UNSPECIFIED BACTERIAL PNEUMONIA Status: Acute (4) Sepsis Code(s): A41.9 - SEPSIS, UNSPECIFIED ORGANISM Status: Resolved Qualifiers: Sepsis type: sepsis due to unspecified organism Sepsis acute organ dysfunction status: without acute organ dysfunction Qualified Code(s): A41.9 - Sepsis, unspecified organism (5) Anxiety and depression Code(s): F41.9 - ANXIETY DISORDER, UNSPECIFIED; F32.9 - MAJOR DEPRESSIVE DISORDER, SINGLE EPISODE, UNSPECIFIED Status: Chronic (6) Tobacco abuse Code(s): Z72.0 - TOBACCO USE Status: Chronic - Plan continue azithromycin and ceftriaxone is stable on nasal canula prednisone, nebs, iv fluids, gabapentin wbc down to 13k from 18k hemostable tx to med floor
[2019-12-29] MEDS: Famotidine 20 MG TAB PO SCH (20:23)
[2019-12-29] MEDS: ALPRAZolam 0.5 MG TAB PO PRN (20:25)
[2019-12-29] MEDS ORDERED: ALPRAZolam 0.5 MG TAB PO SCH (22:15)
[2019-12-30 05:45] LABS: Lactic Acid 1.5 mmol/L (0.5-2.2)
[2019-12-30] MEDS ORDERED: HumaLOG 300 UNITS/3 ML VIAL SC PRN ×2 (07:10)
[2019-12-30] MEDS ORDERED: Dextrose 5% in Water 1,000 ML IV PRN (07:10)
[2019-12-30] MEDS ORDERED: Dextrose 50% Abboject 50 ML SYRINGE SLOW IVP PRN (07:10)
[2019-12-30] MEDS: Mometasone/Formoterol 120 PUFF INHALER INH SCH (07:35)
[2019-12-30] MEDS ORDERED: predniSONE 5 MG TAB PO SCH (08:00)
[2019-12-30] MEDS: Gabapentin 300 MG CAP PO SCH (08:04)
[2019-12-30] MEDS: Enoxaparin Sodium 40 MG/0.4 ML SYRINGE SC SCH (08:07)
--- NOTE | 2019-12-30 09:12 | PRG ---
DATE OF SERVICE: 12/30/2019 SUBJECTIVE: Patient feels good and wants to go home. OBJECTIVE: VITAL SIGNS: Temperature 97.9, pulse 56, respirations 20, saturation 93% on 2 L, blood pressure 107/58. HEENT: Clear. NECK: No adenopathy or JVD. LUNGS: No wheezes. CARDIAC: S1, S2. Regular. ABDOMEN: Soft. EXTREMITIES: No edema. ASSESSMENT: Chronic obstructive pulmonary disease with exacerbation. PLAN: She is stable for discharge to home. She can go home on a short course of antibiotics, taper steroids, and her inhalers. Follow up with her primary care provider. No further recommendations. We will sign off. Job ID: [id number]
[2019-12-30] MEDS: cefTRIAXone\\ROCEPHIN 1 GM in Sodium Chloride 0.9% 100 ML IVPB SCH (10:55)
[2019-12-30] MEDS: Azithromycin 500 MG in Sodium Chloride 0.9% 250 ML 250 ML IVPB SCH ×2 (11:53→12:12)
[2019-12-30 13:01] VITALS: BP 130/69; TEMP 98
--- NOTE | 2019-12-30 15:14 | DIS ---
DATE OF ADMISSION: 12/28/2019 DATE OF DISCHARGE: 12/30/2019 DISCHARGE DISPOSITION: To home. PRIMARY DISCHARGE DIAGNOSES: Chronic obstructive pulmonary disease exacerbation , resolving; acute respiratory failure with hypoxia, resolved; pneumonia, resolving; sepsis on arrival, resolved. SECONDARY DISCHARGE DIAGNOSES: Anxiety, depression, and tobacco abuse. PROCEDURES DONE DURING HOSPITALIZATION: Chest x-ray done on the day of admission showed right mid lung field possible pneumonia and cardiomegaly. Blood cultures x2, no growth. Respiratory culture grew normal respiratory shell. Had a white count of 18, H and H of 18 and 55, and platelet count 195 with 70% neutrophils and 21% bands. BUN 15 and creatinine 0.8. INPATIENT CONSULT: Dr. Peoples for Pulmonology. DISCHARGE MEDICATIONS: 1. Omnicef 300 mg p.o. twice daily for 4 days. 2. Prednisone 5 mg p.o. daily for another 5 days. 3. Dulera inhaler 2 puffs twice daily. 4. DuoNeb q.6 hourly. 5. Gabapentin 600 mg p.o. at bedtime and 300 mg p.o. q.a.m. 6. Lasix 40 mg daily. 7. Xanax 0.25 mg p.o. at bedtime p.r.n. ALLERGIES: ALLERGIC TO IODINE, SULFA, DOXYCYCLINE, AND LEVAQUIN. DISCHARGE PLAN: The patient is to follow up with her primary care physician, Dr. Rae Benson, in 1 week. BRIEF COURSE DURING HOSPITALIZATION: The patient initially came in with complaints of shortness of breath, cough, and fever. She had a temperature of 102 on arrival. She had elevated white count and bandemia along with right midlung zone, suspected pneumonia on chest x-ray. The patient has known history of tobacco abuse and COPD with COPD exacerbation as well. She was placed on broad-spectrum antibiotics along with nebulization and steroids. Ms. Mcpherson has responded well to above measures. She was also evaluated by Dr. Peoples for Pulmonology. Prior to discharge, she is ambulating and eating well. She is wanting to go home today. She is cleared by Dr. Peoples for discharge. She needs to continue Omnicef for another 4 days and prednisone for another 5 days. The patient has adequate supply of DuoNeb solutions at home. She was counseled with regarding tobacco abuse complete cessation. Please note I have seen and examined patient on the day of discharge. Job ID: [id number] MTDD
== END 2019-12-30 12:34 | disposition home or self-care (01) | DRG 871 ==
LOC: ERS 09:30 → ERHOLD 11:42 → 2NO 15:41 → T4-B 12-29 16:47
PROVIDERS: ADMIT Emergency Medicine; ATTEND Internal Medicine
DX: A41.9 Sepsis, unspecified organism (principal); J96.01 Acute respiratory failure with hypoxia; J15.9 Unspecified bacterial pneumonia; J44.0 Chronic obstructive pulmonary disease with (acute) lower respiratory infection; J44.1 Chronic obstructive pulmonary disease with (acute) exacerbation; F41.9 Anxiety disorder, unspecified; F32.9 Major depressive disorder, single episode, unspecified; G62.9 Polyneuropathy, unspecified; M54.5 Low back pain; G89.29 Other chronic pain; I51.7 Cardiomegaly; F17.210 Nicotine dependence, cigarettes, uncomplicated; G47.00 Insomnia, unspecified; E66.01 Morbid (severe) obesity due to excess calories; Z88.2 Allergy status to sulfonamides; Z90.710 Acquired absence of both cervix and uterus; Z90.49 Acquired absence of other specified parts of digestive tract; Z88.1 Allergy status to other antibiotic agents; Z91.041 Radiographic dye allergy status; Z99.81 Dependence on supplemental oxygen; Z79.51 Long term (current) use of inhaled steroids; Z86.718 Personal history of other venous thrombosis and embolism; Z68.29 Body mass index [BMI] 29.0-29.9, adult; Z79.899 Other long term (current) drug therapy
CPT/HCPCS: 36415; 36416; 71045; 80048; 80053; 83605; 84145; 85025; 87040; 87070; 87205; 93005; 94640; J0456; J0696; J2920; J3490; J7050; J7512; J7620

== ENCOUNTER 2020-02-23 08:02 | Outpatient (CLI) | payer MEDICARE ==
--- NOTE | 2020-02-23 10:39 | RAD ---
RADIOGRAPH RIGHT WRIST 2 VIEWS: DATE: 02/23/2020. TIME: 8:21 AM. HISTORY: A 64-year-old female closed nondisplaced fracture of carpal bone of right wrist followup. COMPARISON: 01/31/2020. FINDINGS: Lateral view again demonstrates the small calcific density in the soft tissues very close to the dors al surface of one of the carpal bones. No linear fracture lucency is visualized on the AP view. Ali gnment is unchanged. There is no interval change overall. IMPRESSION: 1. No interval change. 2. See previous report. POS: [facility]
== END 2020-02-23 08:03 | disposition home or self-care (01) ==
LOC: BICRAD 08:02
PROVIDERS: ATTEND Family Medicine
DX: S62.101D Fracture of unspecified carpal bone, right wrist, subsequent encounter for fracture with routine healing (principal)

== ENCOUNTER 2020-03-24 10:09 | Outpatient (CLI) | payer MEDICARE ==
--- NOTE | 2020-03-24 10:50 | ULT ---
ULTRASOUND DOPPLER DUPLEX VENOUS LEFT LOWER EXTREMITY: DATE: 03/24/2020 HISTORY: 64-year-old female with left lower extremity edema TECHNIQUE: Grayscale, color-flow, and spectral analysis, of major veins of left lower extremity. FINDINGS: There is demonstration of blood flow with normal compressibility, of the left common femoral, profund a femoral, greater saphenous, femoral, popliteal, and posterior tibial, veins. IMPRESSION: Negative. No deep venous thrombosis of left lower extremity.
[2020-03-24 14:21] LABS: Hemoglobin A1c 6.1 % (4.0-6.0)
[2020-03-24 14:27] LABS: ALT (SGPT) 14 U/L (8-55); AST (SGOT) 13 U/L (5-34); Albumin 3.8 g/dL (3.4-4.8); Alkaline Phosphatase 91 U/L (40-110); Anion Gap 12 mmol/L (10-20); BUN (Urea Nitrogen) 10 mg/dL (9.8-20.1); Bilirubin, Total 0.6 mg/dL (0.2-1.2); Calc. Creatinine Clearance 0 mL/min (70-130); Calcium 10.1 mg/dL (7.8-10.44); Carbon Dioxide 29 mmol/L (23-31); Cardiac Risk 3.5 (Less than 4.5); Chloride 108 mmol/L (98-107); Cholesterol 173 mg/dl (< 200 Desired); Estimated GFR-MDRD 67; Globulin 2.6 g/dL (2.4-3.5); Glucose 98 mg/dL (80-115); HDL Cholesterol 50 mg/dL (>60 Neg Risk); LDL Cholesterol, Calculated 104 mg/dL; Protein, Total 6.4 g/dL (6.0-8.3); Sodium 144 mmol/L (136-145); Triglycerides 96 mg/dL (Less than 150)
[2020-03-24 14:44] LABS: Hep C IgG Ab Non-Reactive (NonReactive); Hep C Index 0.31 S/CO (0-0.79)
[2020-03-24 19:56] LABS: SARS-CoV-2 IgG Index 0.03 S/CO (< 1.40)
[2020-03-24 20:29] LABS: SARS-CoV-2 IgG Ab Non-Reactive (NonReactive)
== END 2020-03-24 10:10 | disposition home or self-care (01) ==
LOC: SCSULT 10:09
PROVIDERS: ATTEND Family Medicine
DX: Z01.84 Encounter for antibody response examination (principal); M79.605 Pain in left leg; Z13.1 Encounter for screening for diabetes mellitus; Z13.6 Encounter for screening for cardiovascular disorders; Z79.899 Other long term (current) drug therapy; Z72.89 Other problems related to lifestyle
CPT/HCPCS: 36415; 80053; 80061; 83036; 86769; 86803

== ENCOUNTER 2020-06-05 14:17 | Emergency (ER) | payer MEDICARE ==
[2020-06-05 15:19] LABS: #Eosinphils 0.1 thou/uL (0.0-0.7); #Lymphocytes 1.4 thou/uL (1.20-3.40); #Monocytes 0.9 thou/uL (0.11-0.59); #Neutrophils 12.9 thou/uL (1.40-6.50); %Basophils 0.1 % (0.0-1.0); %Eosinophils 0.3 % (0.0-10.0); %Lymphocytes 9.4 % (21.0-51.0); %Monocytes 6.1 % (0.0-10.0); %Neutrophils 84.1 % (42.0-75.0); Mean Corpuscular HGB CONC 32.6 g/dL (32.0-36.0); Mean Corpuscular Hemoglobin 30.8 pg (27.0-31.0); Mean Corpuscular Volume 94.4 fL (78.0-98.0); Platelet Count 201 thou/uL (130-400); RBC Distribution Width 13.1 % (11.5-14.5); Red Blood Cell (RBC) Count 5.84 mill/uL (4.20-5.40); White Blood Cell (WBC) Count 15.3 thou/uL (4.8-10.8)
[2020-06-05 15:24] LABS: INR-International Normal Ratio 0.8; Prothrombin Time 11.5 sec (12.0-14.7)
[2020-06-05 15:25] LABS: PTT 22.8 sec (22.9-36.1)
[2020-06-05 16:00] LABS: CKMB 2.6 ng/mL (0-6.6)
[2020-06-05 16:39] LABS: ALT (SGPT) 24 U/L (8-55); AST (SGOT) 19 U/L (5-34); Albumin 3.3 g/dL (3.4-4.8); Alkaline Phosphatase 113 U/L (40-110); Anion Gap 17 mmol/L (10-20); BUN (Urea Nitrogen) 24 mg/dL (9.8-20.1); Bilirubin, Total 0.4 mg/dL (0.2-1.2); Calc. Creatinine Clearance 0 mL/min (70-130); Calcium 9.1 mg/dL (7.8-10.44); Carbon Dioxide 30 mmol/L (23-31); Chloride 96 mmol/L (98-107); Estimated GFR-MDRD 42; Globulin 3.4 g/dL (2.4-3.5); Glucose 174 mg/dL (80-115); Potassium 4.9 mmol/L (3.5-5.1); Protein, Total 6.7 g/dL (6.0-8.3); Sodium 138 mmol/L (136-145)
== END 2020-06-05 16:24 | disposition home or self-care (01) ==
LOC: ERS 14:17
DX: I82.401 Acute embolism and thrombosis of unspecified deep veins of right lower extremity (principal); R00.0 Tachycardia, unspecified; J44.9 Chronic obstructive pulmonary disease, unspecified; F41.9 Anxiety disorder, unspecified; F17.210 Nicotine dependence, cigarettes, uncomplicated; Z79.899 Other long term (current) drug therapy
CPT/HCPCS: 36415; 80053; 82553; 83880; 84484; 84550; 85025; 85610; 85730; 86140; 93005; 94760

== ENCOUNTER 2020-06-11 09:56 | Emergency (ER) | payer MEDICARE ==
--- NOTE | 2020-06-11 10:52 | RAD ---
XR Chest Pa Lat STANDARD History: Cough Comparison: Radiograph 2019 Findings: Extensive pleural parenchymal scarring is relatively similar to comparison exam. Heart size is enlarged. Multiple midline sternotomy wires. No acute osseous abnormality. Impression: Cardiomegaly and extensive pleural-parenchymal scar. No acute intrathoracic abnormality n or significant change.
[2020-06-11 11:05] LABS: #Eosinphils 0.1 thou/uL (0.0-0.7); #Monocytes 1.1 thou/uL (0.11-0.59); #Neutrophils 14.2 thou/uL (1.40-6.50); %Basophils 0.1 % (0.0-1.0); %Eosinophils 0.4 % (0.0-10.0); %Lymphocytes 5.9 % (21.0-51.0); %Monocytes 6.6 % (0.0-10.0); %Neutrophils 87.1 % (42.0-75.0); Hemoglobin 16.9 g/dL (12.0-16.0); Mean Corpuscular Hemoglobin 29.9 pg (27.0-31.0); Mean Corpuscular Volume 93.4 fL (78.0-98.0); Mean Platelet Volume 9.1 fL (7.4-10.4); Platelet Count 234 thou/uL (130-400); RBC Distribution Width 13.2 % (11.5-14.5); Red Blood Cell (RBC) Count 5.65 mill/uL (4.20-5.40); White Blood Cell (WBC) Count 16.3 thou/uL (4.8-10.8)
[2020-06-11 11:11] LABS: INR-International Normal Ratio 2.8; PTT 35.7 sec (22.9-36.1); Prothrombin Time 29.4 sec (12.0-14.7)
[2020-06-11 11:31] LABS: ALT (SGPT) 18 U/L (8-55); AST (SGOT) 11 U/L (5-34); Albumin 3.4 g/dL (3.4-4.8); Alkaline Phosphatase 95 U/L (40-110); Anion Gap 9 mmol/L (10-20); BUN (Urea Nitrogen) 13 mg/dL (9.8-20.1); Bilirubin, Total 0.4 mg/dL (0.2-1.2); Calc. Creatinine Clearance 0 mL/min (70-130); Calcium 9.5 mg/dL (7.8-10.44); Carbon Dioxide 29 mmol/L (23-31); Chloride 103 mmol/L (98-107); Estimated GFR-MDRD 69; Globulin 3.2 g/dL (2.4-3.5); Glucose 127 mg/dL (80-115); Potassium 4.2 mmol/L (3.5-5.1); Protein, Total 6.6 g/dL (6.0-8.3); Sodium 137 mmol/L (136-145)
== END 2020-06-11 12:20 | disposition home or self-care (01) ==
LOC: ERS 09:56
DX: R05 Cough (principal); J44.9 Chronic obstructive pulmonary disease, unspecified; F41.9 Anxiety disorder, unspecified; I82.409 Acute embolism and thrombosis of unspecified deep veins of unspecified lower extremity; F32.9 Major depressive disorder, single episode, unspecified; F17.210 Nicotine dependence, cigarettes, uncomplicated; Z79.01 Long term (current) use of anticoagulants; Z79.899 Other long term (current) drug therapy
CPT/HCPCS: 71046; 80053; 83880; 84484; 85025; 85610; 85730; 93005

== ENCOUNTER 2020-06-17 08:37 | Emergency (ER) | payer MEDICARE, OTHER ==
[2020-06-17] MEDS ORDERED: methylPREDNISolone Sod Succ/PF 125 MG/2 ML VIAL ONE (09:11)
[2020-06-17] MEDS ORDERED: cefTRIAXone\\ROCEPHIN 2 GM VIAL ONE (09:11)
[2020-06-17] MEDS ORDERED: Azithromycin 500 MG VIAL ONE (09:11)
--- NOTE | 2020-06-17 09:24 | RAD ---
Chest one view HISTORY: Dyspnea. Weakness. COMPARISON: 06/11/2020. FINDINGS: Cardiac silhouette is magnified and enlarged. Pulmonary vasculature upper limits of normal. Ill-defined patchy areas of parenchymal infiltrate projecting over each lung base in the superior seg ment of the left lower lobe have progressed slightly since the prior study. This is superimposed upon chronic interstitial scarring. Mediastinum is midline with postoperative changes evident. No evidence of pneumothorax. IMPRESSION : Slight interval radiographic worsening of patchy bilateral airspace disease. Clinical correlation reg arding other signs and symptoms of multifocal pneumonitis is required.
[2020-06-17 09:26] LABS: #Lymphocytes 0.9 thou/uL (1.20-3.40); #Monocytes 0.8 thou/uL (0.11-0.59); #Neutrophils 10.6 thou/uL (1.40-6.50); %Basophils 0.1 % (0.0-1.0); %Eosinophils 0.3 % (0.0-10.0); %Lymphocytes 7.5 % (21.0-51.0); %Monocytes 6.7 % (0.0-10.0); %Neutrophils 85.5 % (42.0-75.0); Hemoglobin 16.5 g/dL (12.0-16.0); Mean Corpuscular HGB CONC 32.3 g/dL (32.0-36.0); Mean Corpuscular Hemoglobin 29.7 pg (27.0-31.0); Mean Platelet Volume 8.4 fL (7.4-10.4); Platelet Count 264 thou/uL (130-400); Red Blood Cell (RBC) Count 5.55 mill/uL (4.20-5.40); White Blood Cell (WBC) Count 12.4 thou/uL (4.8-10.8)
[2020-06-17 09:40] LABS: Bicarbonate (HCO3v) 28.5 mmol/L (22.0-28.0); CO2 Tension (PvCO2) 45.1 mmHg (40.0-50.0); Calcium, Ionized 1.05 mmol/L (See Comments:); Chloride 102 mmol/L (98-107); Hemoglobin - Calc 17.8 g/dL (12.0-16.0); Potassium 3.7 mmol/L (3.5-5.1); Sodium 139 mmol/L (138-145); T. Carbon Dioxide 29.9 mmol/L (22.0-28.0); vO2 Saturation-calc 80.1 % (60.0-85.0)
[2020-06-17] MEDS ORDERED: Albuterol 200 PUFF (6.7GM INHALER) ONE (09:47)
[2020-06-17 09:49] LABS: ALT (SGPT) 15 U/L (8-55); AST (SGOT) 12 U/L (5-34); Albumin 3.2 g/dL (3.4-4.8); Alkaline Phosphatase 88 U/L (40-110); Anion Gap 10 mmol/L (10-20); BUN (Urea Nitrogen) 9 mg/dL (9.8-20.1); Bilirubin, Total 0.9 mg/dL (0.2-1.2); Calc. Creatinine Clearance 0 mL/min (70-130); Carbon Dioxide 34 mmol/L (23-31); Chloride 101 mmol/L (98-107); Estimated GFR-MDRD 66; Globulin 3.5 g/dL (2.4-3.5); Glucose 146 mg/dL (80-115); Potassium 4.5 mmol/L (3.5-5.1); Protein, Total 6.7 g/dL (6.0-8.3); Sodium 140 mmol/L (136-145)
[2020-06-17] MEDS ORDERED: Lorazepam 2 MG/ML VIAL ONE (10:53)
[2020-06-17 10:57] LABS: SARS-CoV-2 NAA Rapid Test Not Detected (NotDetected)
--- NOTE | 2020-06-17 11:47 | NM ---
Radionucleotide perfusion only lung scan HISTORY: Dyspnea. Iodine allergy. FINDINGS: Ventilation study not performed due to COVID protocol. Correlated with chest radiograph fro m the same date. Large subsegmental perfusion defect projects over the posterior segment left upper lobe where dense i nfiltrate is present on chest radiograph. Slightly less prominent perfusion defect at the anterior segment left upper lobe. Moderate subsegmental perfusion defect over the superior segment right lower lobe, where infiltrate i s present on chest radiograph. IMPRESSION : While there are bilateral perfusion defects, they correlate with the infiltrate on corresponding ches t radiograph. Exam is technically indeterminant, although the matched findings would NOT indicate a recent acute pu lmonary embolus. The abnormalities could be related to atelectasis or parenchymal scarring from an older embolus.
--- NOTE | 2020-06-24 13:21 | EKG ---
Test Reason : Blood Pressure : / mmHG Vent. Rate : 123 BPM Atrial Rate : 123 BPM P-R Int : 174 ms QRS Dur : 072 ms QT Int : 306 ms P-R-T Axes : 033 104 023 degrees QTc Int : 438 ms Sinus tachycardia with occasional Premature ventricular complexes Possible Right ventricular hypertrophy Nonspecific T wave abnormality Abnormal ECG Confirmed by SOL AGUILAR DO ([id number]), video editor CORONA ANAYA ([id number]) on 06/24/2020 1:20:25 PM Referred By: Confirmed By:SOL AGUILAR DO
== END 2020-06-17 13:15 | disposition home or self-care (01) ==
LOC: ERS 08:37
DX: J44.1 Chronic obstructive pulmonary disease with (acute) exacerbation (principal); R07.9 Chest pain, unspecified; F17.210 Nicotine dependence, cigarettes, uncomplicated; F41.9 Anxiety disorder, unspecified; F32.9 Major depressive disorder, single episode, unspecified; Z79.01 Long term (current) use of anticoagulants; Z79.899 Other long term (current) drug therapy; Z20.828 Contact with and (suspected) exposure to other viral communicable diseases
CPT/HCPCS: 71045; 78451; 80053; 82330; 82435; 82803; 84132; 84295; 84484; 85014; 85025; 85379; 93005; 94664; 94760; 96365; 96367; 96375; 99285; A9540; U0002; J0456; J0696; J2060; J2930

== ENCOUNTER 2021-01-10 10:33 | Outpatient (CLI) | payer MEDICARE ==
--- NOTE | 2021-01-10 11:20 | MMO ---
Bilateral MAMMO Bilat Screen [facility]. CLINICAL HISTORY: Patient is 65 years old and is seen for screening. The patient has no family history of breast cancer. The patient has no personal history of cancer. VIEWS: The views performed were: bilateral craniocaudal with tomosynthesis and bilateral mediolateral oblique with tomosynthesis. This study has been interpreted with the assistance of computer-aided detection. MAMMOGRAM FINDINGS: There are scattered fibroglandular densities. There are stable benign appearing calcifications seen in both breasts. There are no suspicious masses, suspicious calcifications, or new areas of architectural distortion. IMPRESSION: THERE IS NO MAMMOGRAPHIC EVIDENCE OF MALIGNANCY. A ROUTINE FOLLOW-UP MAMMOGRAM IN 1 YEAR IS RECOMMENDED. THE RESULTS OF THIS EXAM WERE SENT TO THE PATIENT. ACR BI-RADS Category 2 - Benign finding MAMMOGRAPHY NOTE: 1. A negative mammogram report should not delay a biopsy if a dominant of clinically suspicious mass is present. 2. Approximately 10% to 15% of breast cancers are not detected by mammography. 3. Adenosis and dense breasts may obscure an underlying neoplasm. Reported by: DASHA MCCABE MD Electonically Signed: [id number]
== END 2021-01-10 10:34 | disposition home or self-care (01) ==
LOC: BICMAMMO 10:33
PROVIDERS: ATTEND Family Medicine
DX: Z12.31 Encounter for screening mammogram for malignant neoplasm of breast (principal); R92.0 Mammographic microcalcification found on diagnostic imaging of breast
CPT/HCPCS: 77063; 77067

== ENCOUNTER 2021-08-28 15:47 | Outpatient (CLI) | payer MEDICARE | END 2021-08-28 15:48 | disposition home or self-care (01) | LOC: BICRAD 15:47 | PROVIDERS: ATTEND Family Medicine | DX: J44.1 Chronic obstructive pulmonary disease with (acute) exacerbation (principal) | CPT/HCPCS: 71046 ==

== ENCOUNTER 2021-09-09 09:16 | Emergency (ER) | payer MEDICARE ==
[2021-09-09] MEDS ORDERED: methylPREDNISolone Sod Succ/PF 125 MG/2 ML VIAL ONE (09:47)
[2021-09-09 10:08] LABS: #Lymphocytes 1.4 thou/uL (1.20-3.40); #Monocytes 0.8 thou/uL (0.11-0.59); %Eosinophils 0.4 % (0.0-10.0); %Lymphocytes 14.7 % (21.0-51.0); %Monocytes 8.8 % (0.0-10.0); Hemoglobin 18.2 g/dL (12.0-16.0); Mean Corpuscular HGB CONC 34.1 g/dL (32.0-36.0); Mean Corpuscular Hemoglobin 31.3 pg (27.0-31.0); Mean Corpuscular Volume 91.6 fL (78.0-98.0); Mean Platelet Volume 9.7 fL (7.4-10.4); Platelet Count 220 thou/uL (130-400); RBC Distribution Width 12.7 % (11.5-14.5); Red Blood Cell (RBC) Count 5.83 mill/uL (4.20-5.40); White Blood Cell (WBC) Count 9.2 thou/uL (4.8-10.8)
[2021-09-09] MEDS ORDERED: Albuterol 200 PUFF (6.7GM INHALER) ONE (10:10)
== END 2021-09-09 11:36 | disposition home or self-care (01) ==
LOC: ERS 09:16
DX: J44.1 Chronic obstructive pulmonary disease with (acute) exacerbation (principal); F17.210 Nicotine dependence, cigarettes, uncomplicated; Z79.01 Long term (current) use of anticoagulants; Z79.899 Other long term (current) drug therapy
CPT/HCPCS: 36415; 71045; 84484; 85025; 85379; 93005; 94664; 96374; J2930

== ENCOUNTER 2021-09-20 14:49 | Outpatient (CLI) | payer MEDICARE | END 2021-09-20 14:50 | disposition home or self-care (01) | LOC: BICCT 14:49 | PROVIDERS: ATTEND Internal Medicine Medical Oncology | DX: Z12.2 Encounter for screening for malignant neoplasm of respiratory organs (principal); F17.210 Nicotine dependence, cigarettes, uncomplicated; I26.99 Other pulmonary embolism without acute cor pulmonale | CPT/HCPCS: 71271 ==

== ENCOUNTER 2021-12-12 10:18 | Emergency (ER) | payer MEDICARE ==
[2021-12-12 12:15] LABS: #Eosinphils 0.1 thou/uL (0.0-0.7); #Lymphocytes 1.9 thou/uL (1.20-3.40); #Monocytes 0.7 thou/uL (0.11-0.59); #Neutrophils 7.8 thou/uL (1.40-6.50); %Basophils 0.1 % (0.0-1.0); %Lymphocytes 17.9 % (21.0-51.0); %Monocytes 6.7 % (0.0-10.0); %Neutrophils 74.2 % (42.0-75.0); Hemoglobin 15.8 g/dL (12.0-16.0); Mean Corpuscular HGB CONC 32.4 g/dL (32.0-36.0); Mean Corpuscular Hemoglobin 30.4 pg (27.0-31.0); Mean Corpuscular Volume 93.6 fL (78.0-98.0); Mean Platelet Volume 8.8 fL (7.4-10.4); Platelet Count 209 thou/uL (130-400); RBC Distribution Width 12.3 % (11.5-14.5); White Blood Cell (WBC) Count 10.5 thou/uL (4.8-10.8)
[2021-12-12 12:39] LABS: ALT (SGPT) 8 U/L (8-55); AST (SGOT) 10 U/L (5-34); Albumin 3.3 g/dL (3.4-4.8); Alkaline Phosphatase 73 U/L (40-110); Anion Gap 11 mmol/L (10-20); BUN (Urea Nitrogen) 12 mg/dL (9.8-20.1); Bilirubin, Total 0.5 mg/dL (0.2-1.2); Calc. Creatinine Clearance 0 mL/min (70-130); Calcium 9.7 mg/dL (7.8-10.44); Carbon Dioxide 29 mmol/L (23-31); Chloride 105 mmol/L (98-107); Globulin 3.1 g/dL (2.4-3.5); Glucose 102 mg/dL (80-115); Potassium 4.6 mmol/L (3.5-5.1); Protein, Total 6.4 g/dL (5.8-8.1); Sodium 140 mmol/L (136-145)
[2021-12-12 13:08] LABS: Bilirubin Negative (Negative); Blood, Urine 1+ (Negative); Clarity Clear (Clear); Glucose, Urine (Dipstick) Normal (Negative); Ketone, Urine Negative (Negative); Leukocyte Negative Leu/uL (Negative); Nitrite Negative (Negative); Protein, Urine (Dipstick) Negative (Neg-Trace); RBC/HPF 0-3 HPF (0-3); Specific Gravity, Urine 1.017 (1.002-1.036); Squamous Epithelial 0-3 HPF (0-3); Urobilinogen Normal mg/dL (Less than 2); WBC/HPF 0-3 HPF (0-3); pH, Urine 5.5 (5.0-9.0)
[2021-12-12 13:11] LABS: Bacteria/HPF 1+ HPF (None Seen)
[2021-12-12 17:43] LABS: SARS-CoV-2 PCR by NAA Not Detected (NotDetected)
== END 2021-12-12 13:16 | disposition home or self-care (01) ==
LOC: ERS 10:18
DX: B34.9 Viral infection, unspecified (principal); J44.9 Chronic obstructive pulmonary disease, unspecified; F17.210 Nicotine dependence, cigarettes, uncomplicated; Z20.822 Contact with and (suspected) exposure to COVID-19; Z79.899 Other long term (current) drug therapy
CPT/HCPCS: 71045; 80053; 83605; 85025; 94760; 99285; U0003; U0005; 36415; 81003; 81015

== ENCOUNTER 2021-12-24 08:00 | Outpatient (CLI) | payer MEDICARE | END 2021-12-24 08:01 | disposition home or self-care (01) | LOC: CT 08:00 | PROVIDERS: ATTEND Internal Medicine Medical Oncology | DX: R91.8 Other nonspecific abnormal finding of lung field (principal); D75.1 Secondary polycythemia; J98.4 Other disorders of lung; J98.11 Atelectasis; I27.82 Chronic pulmonary embolism | CPT/HCPCS: 71250 ==

== ENCOUNTER 2022-03-15 08:23 | Emergency (ER) | payer MEDICARE, OTHER ==
[2022-03-15] MEDS ORDERED: methylPREDNISolone Sod Succ/PF 125 MG/2 ML VIAL ONE (09:31)
[2022-03-15] MEDS ORDERED: cefTRIAXone\\ROCEPHIN 2 GM VIAL ONE (09:31)
[2022-03-15] MEDS ORDERED: Azithromycin 500 MG VIAL ONE (09:31)
[2022-03-15 09:38] LABS: #Basophils 0.1 thou/uL (0.0-0.2); #Eosinphils 0.1 thou/uL (0.0-0.7); #Lymphocytes 2.1 thou/uL (1.20-3.40); #Neutrophils 9.3 thou/uL (1.40-6.50); %Basophils 0.7 % (0.0-1.0); %Eosinophils 1.1 % (0.0-10.0); %Lymphocytes 16.3 % (21.0-51.0); %Monocytes 7.9 % (0.0-10.0); Hemoglobin 19.9 g/dL (12.0-16.0); Mean Corpuscular HGB CONC 32.2 g/dL (32.0-36.0); Mean Corpuscular Hemoglobin 30.5 pg (27.0-31.0); Mean Corpuscular Volume 94.7 fL (78.0-98.0); Mean Platelet Volume 8.9 fL (7.4-10.4); Platelet Count 203 thou/uL (130-400); RBC Distribution Width 12.7 % (11.5-14.5); Red Blood Cell (RBC) Count 6.54 mill/uL (4.20-5.40); White Blood Cell (WBC) Count 12.6 thou/uL (4.8-10.8)
[2022-03-15 09:54] LABS: Anion Gap 15 mmol/L (10-20); BUN (Urea Nitrogen) 18 mg/dL (9.8-20.1); Calc. Creatinine Clearance 0 mL/min (70-130); Carbon Dioxide 28 mmol/L (23-31); Chloride 104 mmol/L (98-107); Sodium 142 mmol/L (136-145)
[2022-03-15 09:55] LABS: ALT (SGPT) 14 U/L (8-55); AST (SGOT) 20 U/L (5-34); Albumin 3.9 g/dL (3.4-4.8); Alkaline Phosphatase 78 U/L (40-110); Bilirubin, Total 1.3 mg/dL (0.2-1.2); Calcium 9.7 mg/dL (7.8-10.44); Globulin 3.5 g/dL (2.4-3.5); Glucose 128 mg/dL (80-115); Protein, Total 7.4 g/dL (5.8-8.1)
[2022-03-15 09:58] LABS: Platelet Morphology Comment Appears Adequate; RBC Morphology Normal
[2022-03-15 10:10] LABS: INR-International Normal Ratio 1.2; PTT 34.1 sec (22.9-36.1); Prothrombin Time 15.1 sec (12.0-14.7)
[2022-03-15 10:32] LABS: Bacteria/HPF None Seen HPF (None Seen); Bilirubin Negative (Negative); Blood, Urine Trace (Negative); Clarity Clear (Clear); Glucose, Urine (Dipstick) Normal (Negative); Ketone, Urine Negative (Negative); Leukocyte Negative Leu/uL (Negative); Nitrite Negative (Negative); Protein, Urine (Dipstick) 20 mg/dL (Neg-Trace); RBC/HPF 0-3 HPF (0-3); Specific Gravity, Urine 1.024 (1.002-1.036); Urobilinogen Normal mg/dL (Less than 2); WBC/HPF 0-3 HPF (0-3); pH, Urine 5.5 (5.0-9.0)
== END 2022-03-15 12:06 | disposition home or self-care (01) ==
LOC: ERS 08:23
DX: J44.1 Chronic obstructive pulmonary disease with (acute) exacerbation (principal); F17.210 Nicotine dependence, cigarettes, uncomplicated
CPT/HCPCS: 36415; 71045; 80053; 81003; 81015; 83605; 83880; 84443; 84484; 85025; 85610; 85730; 87040; 93005; 94640; 94760; 96365; 96367; 96375; J0456; J0696; J2930; J7620

== ENCOUNTER 2022-03-25 12:24 | Inpatient (IN) | payer MEDICARE, OTHER ==
[2022-03-25 13:11] LABS: #Eosinphils 0.1 thou/uL (0.0-0.7); #Lymphocytes 1.3 thou/uL (1.20-3.40); #Monocytes 0.9 thou/uL (0.11-0.59); #Neutrophils 10.4 thou/uL (1.40-6.50); %Basophils 0.3 % (0.0-1.0); %Eosinophils 0.5 % (0.0-10.0); %Lymphocytes 10.4 % (21.0-51.0); %Monocytes 7.4 % (0.0-10.0); %Neutrophils 81.3 % (42.0-75.0); Hemoglobin 19.1 g/dL (12.0-16.0); Mean Corpuscular HGB CONC 33.1 g/dL (32.0-36.0); Mean Corpuscular Hemoglobin 31.2 pg (27.0-31.0); Mean Corpuscular Volume 94.4 fL (78.0-98.0); Mean Platelet Volume 8.6 fL (7.4-10.4); Platelet Count 169 thou/uL (130-400); RBC Distribution Width 12.7 % (11.5-14.5); Red Blood Cell (RBC) Count 6.13 mill/uL (4.20-5.40); White Blood Cell (WBC) Count 12.7 thou/uL (4.8-10.8)
[2022-03-25 13:35] LABS: ALT (SGPT) 17 U/L (8-55); AST (SGOT) 14 U/L (5-34); Albumin 3.5 g/dL (3.4-4.8); Alkaline Phosphatase 70 U/L (40-110); Anion Gap 15 mmol/L (10-20); BUN (Urea Nitrogen) 13 mg/dL (9.8-20.1); Bilirubin, Total 1.5 mg/dL (0.2-1.2); Calc. Creatinine Clearance 0 mL/min (70-130); Calcium 8.6 mg/dL (7.8-10.44); Carbon Dioxide 23 mmol/L (23-31); Chloride 105 mmol/L (98-107); Globulin 2.5 g/dL (2.4-3.5); Glucose 123 mg/dL (80-115); Potassium 4.5 mmol/L (3.5-5.1); Sodium 138 mmol/L (136-145)
[2022-03-25 15:52] LABS: Bacteria/HPF None Seen HPF (None Seen); Bilirubin Negative (Negative); Blood, Urine 1+ (Negative); Clarity Clear (Clear); Glucose, Urine (Dipstick) 30 mg/dL (Negative); Ketone, Urine Negative (Negative); Leukocyte 25 Leu/uL (Negative); Nitrite Negative (Negative); Protein, Urine (Dipstick) 10 mg/dL (Neg-Trace); Squamous Epithelial 0-3 HPF (0-3); Urobilinogen 3 mg/dL (Less than 2); WBC/HPF 0-3 HPF (0-3); pH, Urine 6.5 (5.0-9.0)
[2022-03-25] MEDS ORDERED: cefTRIAXone\\ROCEPHIN 1 GM VIAL ONE (16:49)
[2022-03-25] MEDS ORDERED: Azithromycin 250 MG TAB ONE (16:49)
[2022-03-25] MEDS ORDERED: Vancomycin 1 GM/200 ML BAG ONE (18:24)
[2022-03-25] MEDS ORDERED: Acetaminophen 325 MG TAB PO PRN (18:27)
[2022-03-25] MEDS ORDERED: Ondansetron ODT 4 MG TAB PO PRN (18:27)
[2022-03-25] MEDS ORDERED: Bisacodyl 5 MG TAB PO PRN (18:27)
[2022-03-25] MEDS ORDERED: Ondansetron PF 4 MG/2 ML Vial IVP PRN (18:27)
[2022-03-25] MEDS ORDERED: Senokot S 8.6-50 MG TAB PO PRN (18:27)
[2022-03-25] MEDS ORDERED: Vancomycin HCl 500 MG in Sodium Chloride 0.9% 100 ML IVPB SCH (21:45)
[2022-03-25] MEDS: Famotidine/PF 20 mg/2ml Vial SLOW IVP SCH (22:23)
[2022-03-25] MEDS: Rivaroxaban 10 MG TAB PO SCH (22:26)
[2022-03-25] MEDS: Metoprolol Tartrate 25 MG TAB PO SCH (22:26)
[2022-03-25] MEDS: Famotidine 20 MG TAB PO SCH (22:27)
[2022-03-25] MEDS: Cefepime 2 GM in Sodium Chloride 0.9% 100 ML IVPB SCH (22:27)
[2022-03-25] MEDS: methylPREDNISolone Sod Succ 40 MG VIAL IVP SCH (22:44)
[2022-03-25 23:13] VITALS: BMI 28.3
[2022-03-25] MEDS ORDERED: GUAIFENESIN SF SOLN 200 MG/10 ML UDCUP PO PRN (23:31)
[2022-03-25] MEDS: ALPRAZolam 0.5 MG TAB PO PRN (23:47)
[2022-03-26 00:56] LABS: SARS-CoV-2 PCR by NAA Not Detected (NotDetected)
[2022-03-26 02:51] LABS: Legionella Urinary Ag Negative (Negative); Strep pneumo Urine Ag NEGATIVE (NEGATIVE)
[2022-03-26 04:30] LABS: ALT (SGPT) 19 U/L (8-55); AST (SGOT) 15 U/L (5-34); Albumin 3.4 g/dL (3.4-4.8); Alkaline Phosphatase 67 U/L (40-110); Anion Gap 11 mmol/L (10-20); BUN (Urea Nitrogen) 11 mg/dL (9.8-20.1); Bilirubin, Direct 0.3 mg/dL (0.1-0.3); CRP (Inflammatory) 4.34 mg/dL (= or < 0.5); Calc. Creatinine Clearance 76 mL/min (70-130); Calcium 9.1 mg/dL (7.8-10.44); Carbon Dioxide 27 mmol/L (23-31); Cardiac Risk 2.5 (Less than 4.5); Chloride 109 mmol/L (98-107); Cholesterol 157 mg/dl (< 200 Desired); Glucose 157 mg/dL (80-115); HDL Cholesterol 64 mg/dL (>60 Neg Risk); LDL Cholesterol, Calculated 78 mg/dL; Magnesium 2.2 mg/dL (1.6-2.6); Potassium 5.5 mmol/L (3.5-5.1); Protein, Total 6.6 g/dL (5.8-8.1); Sodium 141 mmol/L (136-145); Triglycerides 77 mg/dL (Less than 150)
[2022-03-26 04:39] LABS: Band 17 % (5-11); Hemoglobin 18.4 g/dL (12.0-16.0); Hypochromia SLIGHT = 6-15 cells (100X) (0-5/hpf); Lymphocytes 3 % (21-51); MDiff Complete? YES; Mean Corpuscular HGB CONC 32.3 g/dL (32.0-36.0); Mean Corpuscular Volume 95.9 fL (78.0-98.0); Mean Platelet Volume 8.9 fL (7.4-10.4); Neutrophil 80 % (42-75); Platelet Count 166 thou/uL (130-400); Platelet Morphology Comment Appears Adequate; RBC Distribution Width 12.6 % (11.5-14.5); Red Blood Cell (RBC) Count 5.94 mill/uL (4.20-5.40); White Blood Cell (WBC) Count 12.6 thou/uL (4.8-10.8)
[2022-03-26 08:48] LABS: Hemoglobin A1c 5.9 % (4.0-6.0)
[2022-03-26] MEDS: Cefepime 2 GM in Sodium Chloride 0.9% 100 ML IVPB SCH ×2 (09:30→14:56)
[2022-03-26] MEDS: methylPREDNISolone Sod Succ 40 MG VIAL IVP SCH ×3 (09:31→20:16)
[2022-03-26] MEDS: Benzonatate 100 MG CAP PO SCH ×4 (09:32→21:28)
[2022-03-26] MEDS: Famotidine 20 MG TAB PO SCH ×3 (09:32→21:29)
[2022-03-26] MEDS: Metoprolol Tartrate 25 MG TAB PO SCH (09:33)
[2022-03-26] MEDS: Famotidine/PF 20 mg/2ml Vial SLOW IVP SCH ×2 (09:57→21:29)
[2022-03-26 13:40] LABS: Anion Gap 14 mmol/L (10-20); BUN (Urea Nitrogen) 14 mg/dL (9.8-20.1); Calc. Creatinine Clearance 62 mL/min (70-130); Calcium 8.8 mg/dL (7.8-10.44); Carbon Dioxide 24 mmol/L (23-31); Chloride 108 mmol/L (98-107); Glucose 153 mg/dL (80-115); Potassium 4.7 mmol/L (3.5-5.1); Sodium 141 mmol/L (136-145)
[2022-03-26] MEDS ORDERED: Vancomycin 1.5 GRAM/300 ML BAG 1.5 GM in Premix Bag 1 BAG IVPB SCH (18:00)
[2022-03-26] MEDS: Mometasone 200 MCG/Formoterol 5 MCG 120 PUFF INHALER INH SCH (18:52)
[2022-03-26] MEDS: Linezolid 600 MG TAB PO SCH (21:29)
[2022-03-26] MEDS: ALPRAZolam 0.5 MG TAB PO PRN (21:30)
[2022-03-26] MEDS: Rivaroxaban 10 MG TAB PO SCH (21:30)
[2022-03-27] MEDS ORDERED: Cefepime 2 GM in Sodium Chloride 0.9% 100 ML IVPB SCH (02:00)
[2022-03-27] MEDS: Mometasone 200 MCG/Formoterol 5 MCG 120 PUFF INHALER INH SCH (07:13)
[2022-03-27] MEDS ORDERED: predniSONE 20 MG TAB PO SCH (09:00)
[2022-03-27] MEDS: Linezolid 600 MG TAB PO SCH (09:30)
[2022-03-27] MEDS: Famotidine 20 MG TAB PO SCH (09:47)
[2022-03-27] MEDS: Famotidine/PF 20 mg/2ml Vial SLOW IVP SCH (09:47)
[2022-03-27] MEDS: Benzonatate 100 MG CAP PO SCH (09:47)
[2022-03-27 10:45] LABS: Anion Gap 10 mmol/L (10-20); BUN (Urea Nitrogen) 17 mg/dL (9.8-20.1); Calc. Creatinine Clearance 69 mL/min (70-130); Carbon Dioxide 25 mmol/L (23-31); Chloride 109 mmol/L (98-107); Potassium 4.4 mmol/L (3.5-5.1); Sodium 140 mmol/L (136-145)
[2022-03-27 10:46] LABS: Calcium 9.1 mg/dL (7.8-10.44); Glucose 214 mg/dL (80-115); Magnesium 2.2 mg/dL (1.6-2.6)
[2022-03-27 14:46] VITALS: BP 118/78; TEMP 97.8
== END 2022-03-27 16:10 | disposition home or self-care (01) | DRG 191 ==
LOC: ERS 12:24 → 2SW 17:46 → OBSVTOIN 03-27 11:24
PROVIDERS: ADMIT Family Medicine; ATTEND Family Medicine
DX: J44.1 Chronic obstructive pulmonary disease with (acute) exacerbation (principal); I47.1 Supraventricular tachycardia; I31.3 Pericardial effusion (noninflammatory); I47.2 Ventricular tachycardia; J44.0 Chronic obstructive pulmonary disease with (acute) lower respiratory infection; F17.210 Nicotine dependence, cigarettes, uncomplicated; D75.1 Secondary polycythemia; R19.7 Diarrhea, unspecified; T38.0X5A Adverse effect of glucocorticoids and synthetic analogues, initial encounter; R79.1 Abnormal coagulation profile; R73.03 Prediabetes; E80.7 Disorder of bilirubin metabolism, unspecified; E87.5 Hyperkalemia; Z66 Do not resuscitate; Z60.2 Problems related to living alone; R31.29 Other microscopic hematuria; Z20.822 Contact with and (suspected) exposure to COVID-19; Z79.01 Long term (current) use of anticoagulants; Z71.6 Tobacco abuse counseling; Z88.2 Allergy status to sulfonamides; Z79.2 Long term (current) use of antibiotics; Z79.51 Long term (current) use of inhaled steroids; Z88.1 Allergy status to other antibiotic agents; Z91.041 Radiographic dye allergy status; Z86.718 Personal history of other venous thrombosis and embolism; Z88.8 Allergy status to other drugs, medicaments and biological substances; Z79.899 Other long term (current) drug therapy; Z90.710 Acquired absence of both cervix and uterus; Z90.49 Acquired absence of other specified parts of digestive tract; Z98.890 Other specified postprocedural states; Z98.42 Cataract extraction status, left eye; Z98.41 Cataract extraction status, right eye
CPT/HCPCS: 36415; 71045; 71250; 80048; 80053; 80061; 80076; 81003; 81015; 83036; 83605; 83735; 83880; 84439; 84443; 84484; 85025; 85060; 85379; 86140; 87040; 87070; 87081; 87205; 87449; 87804; 87899; 93005; 93306; 93970; 94640; 94667; J0692; J0696; J2920; J3370; J3490; J7512; J7620; U0003; U0005

== ENCOUNTER 2022-04-04 10:49 | Emergency (ER) | payer MEDICARE, OTHER ==
[2022-04-04 11:47] LABS: #Basophils 0.1 thou/uL (0.0-0.2); #Eosinphils 0.1 thou/uL (0.0-0.7); #Lymphocytes 2.4 thou/uL (1.20-3.40); #Monocytes 0.8 thou/uL (0.11-0.59); #Neutrophils 11.4 thou/uL (1.40-6.50); %Basophils 0.4 % (0.0-1.0); %Eosinophils 0.4 % (0.0-10.0); %Lymphocytes 16.3 % (21.0-51.0); %Monocytes 5.5 % (0.0-10.0); %Neutrophils 77.3 % (42.0-75.0); Hemoglobin 19.7 g/dL (12.0-16.0); Mean Corpuscular HGB CONC 31.7 g/dL (32.0-36.0); Mean Corpuscular Hemoglobin 29.9 pg (27.0-31.0); Mean Corpuscular Volume 94.3 fL (78.0-98.0); Mean Platelet Volume 7.7 fL (7.4-10.4); Platelet Count 203 thou/uL (130-400); Red Blood Cell (RBC) Count 6.59 mill/uL (4.20-5.40); White Blood Cell (WBC) Count 14.8 thou/uL (4.8-10.8)
[2022-04-04 12:00] LABS: ALT (SGPT) 34 U/L (8-55); AST (SGOT) 17 U/L (5-34); Albumin 3.4 g/dL (3.4-4.8); Alkaline Phosphatase 75 U/L (40-110); Anion Gap 12 mmol/L (10-20); BUN (Urea Nitrogen) 22 mg/dL (9.8-20.1); Bilirubin, Total 0.9 mg/dL (0.2-1.2); Calc. Creatinine Clearance 0 mL/min (70-130); Calcium 9.3 mg/dL (7.8-10.44); Carbon Dioxide 31 mmol/L (23-31); Chloride 102 mmol/L (98-107); Glucose 124 mg/dL (80-115); Magnesium 2.2 mg/dL (1.6-2.6); Potassium 4.7 mmol/L (3.5-5.1); Protein, Total 6.4 g/dL (5.8-8.1); Sodium 140 mmol/L (136-145)
[2022-04-04 14:07] LABS: Bilirubin Negative (Negative); Blood, Urine Negative (Negative); Glucose, Urine (Dipstick) Negative (Negative); Ketone, Urine Negative (Negative); Leukocyte Negative (Negative); Nitrite Negative (Negative); Protein, Urine (Dipstick) Negative (Neg-Trace); Urobilinogen 0.2 mg/dL (Less than 2)
[2022-04-04 14:20] LABS: Clarity Clear (Clear)
== END 2022-04-04 15:42 | disposition home or self-care (01) ==
LOC: ERS 10:49
DX: R00.2 Palpitations (principal); D58.2 Other hemoglobinopathies; J44.9 Chronic obstructive pulmonary disease, unspecified; F17.210 Nicotine dependence, cigarettes, uncomplicated; Z79.899 Other long term (current) drug therapy
CPT/HCPCS: 36415; 71045; 80053; 81003; 83735; 84484; 85025; 93005; 94640

== ENCOUNTER 2022-05-24 08:59 | Outpatient (CLI) | payer OTHER | END 2022-05-24 09:00 | disposition home or self-care (01) | LOC: RAD 08:59 | PROVIDERS: ATTEND Internal Medicine Critical Care Medicine | DX: R06.00 Dyspnea, unspecified (principal); R91.8 Other nonspecific abnormal finding of lung field; I51.7 Cardiomegaly | CPT/HCPCS: 71046 ==

== ENCOUNTER 2022-07-20 11:58 | Inpatient (IN) | payer MEDICARE, OTHER ==
[2022-07-20] MEDS ORDERED: methylPREDNISolone Sod Succ/PF 125 MG/2 ML VIAL ONE (12:45)
[2022-07-20] MEDS ORDERED: Magnesium 2 GM/50 ML BAG (IN WATER) ONE (12:45)
[2022-07-20 13:47] LABS: SARS-CoV-2 NAA Rapid Test Not Detected (NotDetected)
[2022-07-20 14:03] LABS: #Lymphocytes 1.9 thou/uL (1.20-3.40); #Monocytes 1.5 thou/uL (0.11-0.59); #Neutrophils 11.8 thou/uL (1.40-6.50); %Basophils 0.3 % (0.0-1.0); %Eosinophils 0.3 % (0.0-10.0); %Lymphocytes 12.7 % (21.0-51.0); %Monocytes 9.6 % (0.0-10.0); %Neutrophils 77.1 % (42.0-75.0); Mean Corpuscular HGB CONC 33.5 g/dL (32.0-36.0); Mean Corpuscular Hemoglobin 31.8 pg (27.0-31.0); Mean Corpuscular Volume 94.7 fL (78.0-98.0); Mean Platelet Volume 8.8 fL (7.4-10.4); Platelet Count 222 thou/uL (130-400); RBC Distribution Width 12.1 % (11.5-14.5); Red Blood Cell (RBC) Count 5.65 mill/uL (4.20-5.40); White Blood Cell (WBC) Count 15.3 thou/uL (4.8-10.8)
[2022-07-20 14:23] LABS: ALT (SGPT) 12 U/L (8-55); AST (SGOT) 17 U/L (5-34); Albumin 3.8 g/dL (3.4-4.8); Alkaline Phosphatase 79 U/L (40-110); Anion Gap 14 mmol/L (10-20); BUN (Urea Nitrogen) 10 mg/dL (9.8-20.1); Calc. Creatinine Clearance 0 mL/min (70-130); Calcium 9.9 mg/dL (7.8-10.44); Carbon Dioxide 28 mmol/L (23-31); Chloride 101 mmol/L (98-107); Estimated GFR 75; Globulin 3.2 g/dL (2.4-3.5); Glucose 111 mg/dL (80-115); Potassium 4.3 mmol/L (3.5-5.1); Sodium 139 mmol/L (136-145)
[2022-07-20] MEDS ORDERED: Senokot S 8.6-50 MG TAB PO PRN (15:29)
[2022-07-20] MEDS ORDERED: Ondansetron PF 4 MG/2 ML Vial IVP PRN (15:29)
[2022-07-20] MEDS ORDERED: Acetaminophen 325 MG TAB PO PRN (15:29)
[2022-07-20] MEDS ORDERED: Guaifenesin DM 100-10/5 ML UDCUP PO PRN (15:29)
[2022-07-20] MEDS ORDERED: Ondansetron ODT 4 MG TAB PO PRN (15:29)
[2022-07-20] MEDS ORDERED: Ampicillin/Sulbactam 3 GM in Sodium Chloride 0.9% 100 ML IVPB SCH (15:30)
[2022-07-20] MEDS ORDERED: Benzonatate 100 MG CAP PO PRN (15:33)
[2022-07-20] MEDS ORDERED: Albuterol Sulfate 2.5 mg/3 ml Neb NEB PRN (15:33)
[2022-07-20 15:46] LABS: Bilirubin Negative (Negative); Blood, Urine Negative (Negative); Clarity Clear (Clear); Glucose, Urine (Dipstick) 30 mg/dL (Negative); Ketone, Urine Negative (Negative); Leukocyte Negative Leu/uL (Negative); Nitrite Negative (Negative); Protein, Urine (Dipstick) 20 mg/dL (Neg-Trace); Specific Gravity, Urine 1.023 (1.002-1.036); Urobilinogen 3 mg/dL (Less than 2); pH, Urine 5.5 (5.0-9.0)
[2022-07-20 17:33] VITALS: BMI 30.8
[2022-07-20] MEDS ORDERED: Famotidine 20 MG TAB PO SCH (21:00)
[2022-07-20] MEDS: ALPRAZolam 0.5 MG TAB PO PRN (21:06)
[2022-07-20] MEDS: Famotidine 20 MG TAB PO SCH (21:09)
[2022-07-20] MEDS ORDERED: Rivaroxaban 10 MG TAB PO SCH (21:30)
[2022-07-20] MEDS ORDERED: Gabapentin 300 MG CAP PO SCH (22:30)
[2022-07-21] MEDS: methylPREDNISolone Sod Succ 40 MG VIAL IVP SCH ×3 (05:59→20:59)
[2022-07-21 08:44] LABS: ALT (SGPT) 12 U/L (8-55); AST (SGOT) 14 U/L (5-34); Albumin 3.5 g/dL (3.4-4.8); Alkaline Phosphatase 75 U/L (40-110); Anion Gap 10 mmol/L (10-20); BUN (Urea Nitrogen) 13 mg/dL (9.8-20.1); Bilirubin, Total 0.5 mg/dL (0.2-1.2); Calc. Creatinine Clearance 81 mL/min (70-130); Calcium 9.6 mg/dL (7.8-10.44); Carbon Dioxide 29 mmol/L (23-31); Chloride 105 mmol/L (98-107); Estimated GFR 83; Globulin 3.2 g/dL (2.4-3.5); Glucose 182 mg/dL (80-115); Potassium 4.3 mmol/L (3.5-5.1); Protein, Total 6.7 g/dL (5.8-8.1); Sodium 140 mmol/L (136-145)
[2022-07-21 08:45] LABS: Band 26 % (5-11); Hemoglobin 17.3 g/dL (12.0-16.0); Lymphocytes 1 % (21-51); MDiff Complete? YES; Mean Corpuscular HGB CONC 32.2 g/dL (32.0-36.0); Mean Corpuscular Hemoglobin 30.8 pg (27.0-31.0); Mean Corpuscular Volume 95.7 fL (78.0-98.0); Mean Platelet Volume 8.7 fL (7.4-10.4); Monocytes 1 % (0-10); Neutrophil 66 % (42-75); Platelet Count 218 thou/uL (130-400); Platelet Morphology Comment Appears Adequate; RBC Distribution Width 11.9 % (11.5-14.5); RBC Morphology Normal; Reactive Lymphocytes 6 % (0-10); White Blood Cell (WBC) Count 22.3 thou/uL (4.8-10.8)
[2022-07-21] MEDS ORDERED: Rivaroxaban 10 MG TAB PO SCH ×2 (09:00→21:00)
[2022-07-21] MEDS: Amoxicillin/Potassium Clav 875 MG TAB PO SCH ×2 (10:55→20:53)
[2022-07-21] MEDS: Famotidine 20 MG TAB PO SCH ×2 (10:55→20:56)
[2022-07-21] MEDS: Furosemide 20 MG TAB PO SCH (10:55)
[2022-07-21] MEDS ORDERED: Gabapentin 300 MG CAP PO SCH (21:00)
[2022-07-21] MEDS: ALPRAZolam 0.5 MG TAB PO PRN (21:05)
[2022-07-22] MEDS: methylPREDNISolone Sod Succ 40 MG VIAL IVP SCH (05:25)
[2022-07-22 06:29] LABS: Anion Gap 17 mmol/L (10-20); BUN (Urea Nitrogen) 19 mg/dL (9.8-20.1); Calc. Creatinine Clearance 73 mL/min (70-130); Calcium 9.9 mg/dL (7.8-10.44); Carbon Dioxide 27 mmol/L (23-31); Chloride 104 mmol/L (98-107); Estimated GFR 74; Glucose 174 mg/dL (80-115); Magnesium 2.5 mg/dL (1.6-2.6); Potassium 4.6 mmol/L (3.5-5.1); Sodium 143 mmol/L (136-145)
[2022-07-22 07:00] LABS: Band 10 % (5-11); Hemoglobin 16.6 g/dL (12.0-16.0); Lymphocytes 1 % (21-51); MDiff Complete? YES; Mean Corpuscular HGB CONC 31.4 g/dL (32.0-36.0); Mean Corpuscular Hemoglobin 30.4 pg (27.0-31.0); Mean Corpuscular Volume 96.6 fL (78.0-98.0); Mean Platelet Volume 9.2 fL (7.4-10.4); Monocytes 1 % (0-10); Neutrophil 88 % (42-75); Platelet Count 242 thou/uL (130-400); RBC Distribution Width 11.9 % (11.5-14.5); Red Blood Cell (RBC) Count 5.47 mill/uL (4.20-5.40); White Blood Cell (WBC) Count 30.3 thou/uL (4.8-10.8)
[2022-07-22] MEDS: Furosemide 20 MG TAB PO SCH (08:21)
[2022-07-22] MEDS: Amoxicillin/Potassium Clav 875 MG TAB PO SCH (08:21)
[2022-07-22] MEDS: Famotidine 20 MG TAB PO SCH (08:22)
[2022-07-22 12:11] VITALS: BP 138/81; TEMP 97.7
== END 2022-07-22 13:11 | disposition home or self-care (01) | DRG 189 ==
LOC: SUATTDRO 11:58 → ERS 11:58 → 2NO 15:13 → T4-B 07-21 15:54
PROVIDERS: ADMIT Hospitalist; ATTEND Hospitalist
DX: J96.01 Acute respiratory failure with hypoxia (principal); I48.20 Chronic atrial fibrillation, unspecified; J44.1 Chronic obstructive pulmonary disease with (acute) exacerbation; I50.32 Chronic diastolic (congestive) heart failure; I11.0 Hypertensive heart disease with heart failure; Z20.822 Contact with and (suspected) exposure to COVID-19; F41.9 Anxiety disorder, unspecified; F32.A Depression, unspecified; F17.210 Nicotine dependence, cigarettes, uncomplicated; Z79.01 Long term (current) use of anticoagulants; Z86.718 Personal history of other venous thrombosis and embolism; Z91.041 Radiographic dye allergy status; Z88.2 Allergy status to sulfonamides; Z88.1 Allergy status to other antibiotic agents; Z79.899 Other long term (current) drug therapy; Z90.49 Acquired absence of other specified parts of digestive tract; Z90.710 Acquired absence of both cervix and uterus; Z79.51 Long term (current) use of inhaled steroids; Z99.81 Dependence on supplemental oxygen
CPT/HCPCS: 36415; 71045; 80048; 80053; 81003; 83605; 83735; 84484; 85025; 87040; 93005; 94640; 96365; 96375; J0295; J2920; J2930; J3475; J3490; J7620; U0002

== ENCOUNTER 2022-07-26 14:11 | Inpatient (IN) | payer OTHER ==
[2022-07-26 15:03] LABS: #Eosinphils 0.2 thou/uL (0.0-0.7); #Lymphocytes 2.5 thou/uL (1.20-3.40); #Neutrophils 10.6 thou/uL (1.40-6.50); %Basophils 0.1 % (0.0-1.0); %Eosinophils 1.1 % (0.0-10.0); %Lymphocytes 17.7 % (21.0-51.0); %Monocytes 7.2 % (0.0-10.0); %Neutrophils 73.9 % (42.0-75.0); Mean Corpuscular Hemoglobin 30.6 pg (27.0-31.0); Mean Corpuscular Volume 95.5 fL (78.0-98.0); Mean Platelet Volume 8.8 fL (7.4-10.4); Platelet Count 266 thou/uL (130-400); RBC Distribution Width 11.7 % (11.5-14.5); Red Blood Cell (RBC) Count 5.88 mill/uL (4.20-5.40); White Blood Cell (WBC) Count 14.3 thou/uL (4.8-10.8)
[2022-07-26 15:17] LABS: ALT (SGPT) 28 U/L (8-55); AST (SGOT) 19 U/L (5-34); Albumin 3.5 g/dL (3.4-4.8); Alkaline Phosphatase 80 U/L (40-110); Anion Gap 15 mmol/L (10-20); BUN (Urea Nitrogen) 17 mg/dL (9.8-20.1); Bilirubin, Total 0.6 mg/dL (0.2-1.2); Calc. Creatinine Clearance 0 mL/min (70-130); Calcium 9.9 mg/dL (7.8-10.44); Carbon Dioxide 34 mmol/L (23-31); Chloride 98 mmol/L (98-107); Estimated GFR 77; Glucose 124 mg/dL (80-115); Potassium 3.6 mmol/L (3.5-5.1); Protein, Total 6.5 g/dL (5.8-8.1); Sodium 143 mmol/L (136-145)
[2022-07-26] MEDS ORDERED: Albuterol Sulfate 2.5 mg/0.5 ml Neb ONE (15:55)
[2022-07-26] MEDS ORDERED: cefTRIAXone\\ROCEPHIN 2 GM VIAL ONE (16:26)
[2022-07-26] MEDS ORDERED: methylPREDNISolone Sod Succ/PF 125 MG/2 ML VIAL ONE (16:26)
[2022-07-26] MEDS ORDERED: Ondansetron ODT 4 MG TAB PO PRN (18:06)
[2022-07-26] MEDS ORDERED: Acetaminophen 325 MG TAB PO PRN (18:06)
[2022-07-26] MEDS ORDERED: Azithromycin 500 MG VIAL ONE (18:38)
[2022-07-26 19:18] VITALS: BMI 28.0
[2022-07-26] MEDS: Gabapentin 300 MG CAP PO SCH (21:22)
[2022-07-26] MEDS: ALPRAZolam 0.5 MG TAB PO PRN (21:22)
[2022-07-26] MEDS: Rivaroxaban 10 MG TAB PO SCH (21:22)
[2022-07-26] MEDS: Famotidine 20 MG TAB PO SCH (21:37)
[2022-07-26] MEDS ORDERED: Piperacillin/Tazobactam 3.375 GM in Sodium Chloride 0.9% 100 ML IVPB SCH (22:00)
[2022-07-26] MEDS: methylPREDNISolone Sod Succ 40 MG VIAL IVP SCH (23:55)
[2022-07-27] MEDS: Piperacillin/Tazobactam 3.375 GM in Sodium Chloride 0.9% 100 ML IVPB SCH ×2 (02:15→10:18)
[2022-07-27] MEDS: methylPREDNISolone Sod Succ 40 MG VIAL IVP SCH ×3 (06:07→13:34)
[2022-07-27 07:04] LABS: #Lymphocytes 0.9 thou/uL (1.20-3.40); #Monocytes 0.1 thou/uL (0.11-0.59); #Neutrophils 10.4 thou/uL (1.40-6.50); %Basophils 0.4 % (0.0-1.0); %Eosinophils 0.1 % (0.0-10.0); %Lymphocytes 7.6 % (21.0-51.0); %Neutrophils 90.8 % (42.0-75.0); Hemoglobin 17.2 g/dL (12.0-16.0); Mean Corpuscular HGB CONC 31.4 g/dL (32.0-36.0); Mean Corpuscular Hemoglobin 30.1 pg (27.0-31.0); Mean Corpuscular Volume 95.6 fL (78.0-98.0); Mean Platelet Volume 8.8 fL (7.4-10.4); Platelet Count 267 thou/uL (130-400); RBC Distribution Width 11.8 % (11.5-14.5); Red Blood Cell (RBC) Count 5.72 mill/uL (4.20-5.40); White Blood Cell (WBC) Count 11.4 thou/uL (4.8-10.8)
[2022-07-27 07:24] LABS: Anion Gap 15 mmol/L (10-20); BUN (Urea Nitrogen) 15 mg/dL (9.8-20.1); Calc. Creatinine Clearance 75 mL/min (70-130); Carbon Dioxide 27 mmol/L (23-31); Chloride 102 mmol/L (98-107); Estimated GFR 76; Glucose 205 mg/dL (80-115); Potassium 4.6 mmol/L (3.5-5.1); Sodium 139 mmol/L (136-145)
[2022-07-27] MEDS ORDERED: Budesonide 0.5 MG/2 ML NEB NEB SCH (09:00)
[2022-07-27] MEDS ORDERED: Piperacillin/Tazobactam 3.375 GM VIAL ONE (10:14)
[2022-07-27] MEDS: Famotidine 20 MG TAB PO SCH ×3 (10:19→20:01)
[2022-07-27] MEDS ORDERED: UMECLIDIN INH SCH (11:00)
[2022-07-27] MEDS ORDERED: VILANTER INH SCH (11:00)
[2022-07-27] MEDS ORDERED: FLUTICASONE INH SCH (11:00)
[2022-07-27] MEDS ORDERED: methylPREDNISolone Sod Succ 40 MG VIAL IVP SCH ×2 (15:15→22:00)
[2022-07-27] MEDS ORDERED: Benzonatate 100 MG CAP PO PRN (17:13)
[2022-07-27] MEDS ORDERED: Azithromycin 250 MG TAB PO SCH (17:45)
[2022-07-27] MEDS: Budesonide 0.5 MG/2 ML NEB NEB SCH (18:06)
[2022-07-27] MEDS: Acetylcysteine 10% 100 MG/ML 30 ml Vial INH SCH (18:23)
[2022-07-27] MEDS: Rivaroxaban 10 MG TAB PO SCH (19:02)
[2022-07-27 19:06] LABS: Magnesium 2.4 mg/dL (1.6-2.6)
[2022-07-27] MEDS: ALPRAZolam 0.5 MG TAB PO PRN (20:01)
[2022-07-27] MEDS: guaiFENesin ER 600 MG TAB PO SCH (20:02)
[2022-07-27] MEDS: Gabapentin 300 MG CAP PO SCH (20:02)
[2022-07-28] MEDS ORDERED: methylPREDNISolone Sod Succ 40 MG VIAL IVP SCH (01:00)
[2022-07-28] MEDS: Budesonide 0.5 MG/2 ML NEB NEB SCH (06:40)
[2022-07-28] MEDS: Acetylcysteine 10% 100 MG/ML 30 ml Vial INH SCH ×3 (06:46→13:10)
[2022-07-28] MEDS ORDERED: UMECLIDIN INH SCH (07:00)
[2022-07-28] MEDS ORDERED: FLUTICASONE INH SCH (07:00)
[2022-07-28] MEDS ORDERED: VILANTER INH SCH (07:00)
[2022-07-28] MEDS: guaiFENesin ER 600 MG TAB PO SCH (08:12)
[2022-07-28] MEDS: Famotidine 20 MG TAB PO SCH (08:13)
[2022-07-28 08:18] VITALS: BP 116/70; TEMP 98.5
[2022-07-28] MEDS ORDERED: predniSONE 20 MG TAB PO SCH (09:00)
[2022-07-28] MEDS ORDERED: Azithromycin 250 MG TAB PO SCH (09:00)
[2022-07-28] MEDS ORDERED: Furosemide 40 MG TAB PO SCH (10:00)
[2022-07-29] MEDS ORDERED: Furosemide 40 MG TAB PO SCH (07:30)
== END 2022-07-28 15:37 | disposition home or self-care (01) | DRG 189 ==
LOC: ERS 14:11 → T4-B 18:57 → OBSVTOIN 07-27 16:13
PROVIDERS: ADMIT Internal Medicine; ATTEND Family Medicine
DX: J96.21 Acute and chronic respiratory failure with hypoxia (principal); J44.1 Chronic obstructive pulmonary disease with (acute) exacerbation; F17.210 Nicotine dependence, cigarettes, uncomplicated; F41.9 Anxiety disorder, unspecified; F32.A Depression, unspecified; J45.909 Unspecified asthma, uncomplicated; I10 Essential (primary) hypertension; I25.10 Atherosclerotic heart disease of native coronary artery without angina pectoris; Z20.822 Contact with and (suspected) exposure to COVID-19; D75.1 Secondary polycythemia; Z88.2 Allergy status to sulfonamides; Z88.1 Allergy status to other antibiotic agents; Z88.8 Allergy status to other drugs, medicaments and biological substances; Z79.01 Long term (current) use of anticoagulants; Z79.899 Other long term (current) drug therapy; Z86.718 Personal history of other venous thrombosis and embolism; Z90.710 Acquired absence of both cervix and uterus; Z90.49 Acquired absence of other specified parts of digestive tract
CPT/HCPCS: 36415; 71045; 80048; 80053; 83605; 83735; 84145; 84484; 85025; 87040; 93005; 94640; 96375; 96376; G0378; J0456; J0696; J2543; J2920; J2930; J3490; J7512; J7608; J7611; J7620; J7626; U0003; U0005

== ENCOUNTER 2023-04-30 10:41 | Outpatient (CLI) | payer OTHER | END 2023-04-30 10:42 | disposition home or self-care (01) | LOC: RAD 10:41 | PROVIDERS: ATTEND Internal Medicine Critical Care Medicine | DX: R06.00 Dyspnea, unspecified (principal) | CPT/HCPCS: 71046 ==

== ENCOUNTER 2023-05-11 18:40 | Inpatient (IN) | payer MEDICARE, OTHER ==
[2023-05-11 19:11] LABS: #Monocytes 1.4 thou/uL (0.11-0.59); #Neutrophils 9.3 thou/uL (1.40-6.50); %Basophils 0.2 % (0.0-1.0); %Eosinophils 0.1 % (0.0-10.0); %Lymphocytes 12.9 % (21.0-51.0); %Monocytes 11.3 % (0.0-10.0); %Neutrophils 75.1 % (42.0-75.0); Hemoglobin 15.2 g/dL (12.0-16.0); Mean Corpuscular HGB CONC 32.3 g/dL (32.0-36.0); Mean Corpuscular Hemoglobin 31.1 pg (27.0-31.0); Mean Corpuscular Volume 96.3 fl (78.0-98.0); Mean Platelet Volume 10.4 fL (7.4-10.4); Platelet Count 292 10x3/uL (130-400); RBC Distribution Width 15.4 % (11.5-14.5); Red Blood Cell (RBC) Count 4.88 mill/uL (4.20-5.40); White Blood Cell (WBC) Count 12.4 10x3/uL (4.8-10.8)
[2023-05-11 19:41] LABS: ALT (SGPT) 9 U/L (8-55); AST (SGOT) 11 U/L (5-34); Albumin 3.4 g/dL (3.4-4.8); Alkaline Phosphatase 75 U/L (40-110); BUN (Urea Nitrogen) 12 mg/dL (9.8-20.1); CK (CPK) 28 U/L (29-168); Calc. Creatinine Clearance 0 mL/min (70-130); Calcium 9.4 mg/dL (7.8-10.44); Estimated GFR 45; Globulin 2.9 g/dL (2.4-3.5); Glucose 168 mg/dL (80-115); Protein, Total 6.3 g/dL (5.8-8.1)
[2023-05-11 19:51] LABS: Anion Gap 19 mmol/L (10-20); Carbon Dioxide 33 mmol/L (23-31); Chloride 93 mmol/L (98-107); Potassium 3.1 mmol/L (3.5-5.1); Sodium 142 mmol/L (136-145)
[2023-05-11] MEDS ORDERED: Magnesium 2 GM/50 ML BAG (IN WATER) ONE (20:06)
[2023-05-11] MEDS ORDERED: methylPREDNISolone Sod Succ/PF 125 MG/2 ML VIAL ONE (20:06)
[2023-05-11] MEDS ORDERED: Ipratropium/Albuterol 3 ML NEB ONE (20:12)
[2023-05-11] MEDS ORDERED: Potassium Chloride 20 MEQ TAB ONE (21:44)
[2023-05-11] MEDS ORDERED: Ondansetron ODT 4 MG TAB PO PRN (23:21)
[2023-05-11] MEDS ORDERED: Ondansetron PF 4 MG/2 ML Vial IVP PRN (23:21)
[2023-05-11] MEDS ORDERED: Acetaminophen 650 MG Suppository PR PRN (23:21)
[2023-05-11] MEDS ORDERED: Acetaminophen 325 MG TAB PO PRN (23:21)
[2023-05-11] MEDS ORDERED: Furosemide 100 MG/10 ML VIAL SLOW IVP SCH (23:30)
[2023-05-11] MEDS ORDERED: Ipratropium/Albuterol 3 ML NEB NEB PRN (23:38)
[2023-05-11] MEDS ORDERED: Electrolyte Replacement Protocol 1 EACH FS SCH (23:45)
[2023-05-12 00:38] LABS: Magnesium 2.8 mg/dL (1.6-2.6)
[2023-05-12 00:41] VITALS: BMI 28.6
[2023-05-12] MEDS: Ipratropium/Albuterol 3 ML NEB NEB SCH ×6 (01:16→22:49)
[2023-05-12 02:27] LABS: Troponin I 0.035 ng/mL (< 0.028)
[2023-05-12] MEDS: Azithromycin 500 MG in Sodium Chloride 0.9% 250 ML 250 ML IVPB SCH (04:16)
[2023-05-12 04:30] LABS: #Monocytes 0.1 thou/uL (0.11-0.59); #Neutrophils 9.2 thou/uL (1.40-6.50); %Basophils 0.1 % (0.0-1.0); %Lymphocytes 5.3 % (21.0-51.0); %Monocytes 0.9 % (0.0-10.0); %Neutrophils 93.3 % (42.0-75.0); Mean Corpuscular HGB CONC 32.6 g/dL (32.0-36.0); Mean Corpuscular Hemoglobin 31.6 pg (27.0-31.0); Mean Corpuscular Volume 96.8 fl (78.0-98.0); Mean Platelet Volume 10.4 fL (7.4-10.4); Platelet Count 279 10x3/uL (130-400); Red Blood Cell (RBC) Count 4.75 mill/uL (4.20-5.40); White Blood Cell (WBC) Count 9.9 10x3/uL (4.8-10.8)
[2023-05-12 05:08] LABS: BUN (Urea Nitrogen) 16 mg/dL (9.8-20.1); Calc. Creatinine Clearance 46 mL/min (70-130); Estimated GFR 42; Glucose 236 mg/dL (80-115); Magnesium 2.7 mg/dL (1.6-2.6)
[2023-05-12 05:17] LABS: Anion Gap 16 mmol/L (10-20); Carbon Dioxide 37 mmol/L (23-31); Chloride 92 mmol/L (98-107); Potassium 3.2 mmol/L (3.5-5.1); Sodium 142 mmol/L (136-145)
[2023-05-12] MEDS ORDERED: Mometasone 100 MCG HFA INHALER (RT USE) INH SCH (06:30)
[2023-05-12] MEDS ORDERED: Potassium Chloride 20 MEQ TAB PO SCH ×2 (08:00→12:30)
[2023-05-12] MEDS: AcetaZOLAMIDE 250 MG TAB PO SCH ×2 (08:59→20:30)
[2023-05-12] MEDS ORDERED: Furosemide 40 MG/4 ML VIAL SLOW IVP SCH ×2 (09:00→14:00)
[2023-05-12] MEDS ORDERED: Non-Formulary Item 1 EACH (Fluticasone/Umeclidin/Vilanter [Trelegy Ellipta 200-62.5-25] 1 INH SCH (09:00)
[2023-05-12] MEDS ORDERED: methylPREDNISolone Sod Succ 40 MG VIAL IVP SCH (09:00)
[2023-05-12] MEDS ORDERED: Apixaban 2.5 MG TAB PO SCH (09:00)
[2023-05-12] MEDS: methylPREDNISolone Sod Succ 40 MG VIAL IVP SCH ×3 (11:39→23:06)
[2023-05-12] MEDS ORDERED: Melatonin 3 MG TAB PO PRN (12:20)
[2023-05-12 13:23] LABS: Potassium 3.6 mmol/L (3.5-5.1)
[2023-05-12] MEDS: Mometasone 200 MCG/Formoterol 5 MCG 120 PUFF INHALER INH SCH (19:22)
[2023-05-12] MEDS ORDERED: ALPRAZolam 0.5 MG TAB PO PRN (19:58)
[2023-05-12] MEDS ORDERED: Gabapentin 300 MG CAP PO SCH (21:00)
[2023-05-13] MEDS: Ipratropium/Albuterol 3 ML NEB NEB SCH ×3 (02:53→10:23)
[2023-05-13] MEDS: Azithromycin 500 MG in Sodium Chloride 0.9% 250 ML 250 ML IVPB SCH (03:11)
[2023-05-13] MEDS: methylPREDNISolone Sod Succ 40 MG VIAL IVP SCH (05:24)
[2023-05-13 06:54] LABS: Chloride 96 mmol/L (98-107); Potassium 4.2 mmol/L (3.5-5.1); Sodium 140 mmol/L (136-145)
[2023-05-13 06:55] LABS: Calcium 9.1 mg/dL (7.8-10.44); Glucose 191 mg/dL (80-115)
[2023-05-13 06:59] LABS: Calc. Creatinine Clearance 51 mL/min (70-130); Estimated GFR 46
[2023-05-13 07:00] LABS: BUN (Urea Nitrogen) 20 mg/dL (9.8-20.1)
[2023-05-13 07:06] LABS: Carbon Dioxide 35 mmol/L (23-31)
[2023-05-13] MEDS: Mometasone 200 MCG/Formoterol 5 MCG 120 PUFF INHALER INH SCH (07:26)
[2023-05-13] MEDS: AcetaZOLAMIDE 250 MG TAB PO SCH (08:28)
[2023-05-13] MEDS ORDERED: Rivaroxaban 10 MG TAB PO SCH (09:00)
[2023-05-13] MEDS ORDERED: Furosemide 40 MG TAB PO SCH (09:00)
[2023-05-13 10:25] VITALS: BP 113/58; TEMP 97.5
[2023-05-13 10:34] LABS: Anion Gap 13 mmol/L (10-20)
== END 2023-05-13 12:31 | disposition home or self-care (01) | DRG 291 ==
LOC: ERS 18:40 → 2NO 22:25
PROVIDERS: ADMIT Student in an Organized Health Care Education/Training Program; ATTEND Internal Medicine
DX: I13.0 Hypertensive heart and chronic kidney disease with heart failure and stage 1 through stage 4 chronic kidney disease, or unspecified chronic kidney disease (principal); I50.33 Acute on chronic diastolic (congestive) heart failure; J96.21 Acute and chronic respiratory failure with hypoxia; J44.1 Chronic obstructive pulmonary disease with (acute) exacerbation; E87.6 Hypokalemia; D72.829 Elevated white blood cell count, unspecified; I48.0 Paroxysmal atrial fibrillation; N18.30 Chronic kidney disease, stage 3 unspecified; F17.210 Nicotine dependence, cigarettes, uncomplicated; Z90.49 Acquired absence of other specified parts of digestive tract; Z90.710 Acquired absence of both cervix and uterus; Z98.890 Other specified postprocedural states; Z88.1 Allergy status to other antibiotic agents; Z88.2 Allergy status to sulfonamides; Z88.8 Allergy status to other drugs, medicaments and biological substances; Z99.81 Dependence on supplemental oxygen; Z86.718 Personal history of other venous thrombosis and embolism; Z79.899 Other long term (current) drug therapy
CPT/HCPCS: 36415; 71045; 80048; 80053; 82550; 83605; 83735; 83880; 84484; 85025; 87040; 93005; 93798; 94640; 96365; 96375; J0456; J1940; J2920; J2930; J3475; J7050; J7620

== ENCOUNTER 2023-05-16 19:30 | Outpatient (CLI) | payer OTHER | END 2023-05-16 19:31 | disposition home or self-care (01) | LOC: SLEEPLAB 19:30 | PROVIDERS: ATTEND Internal Medicine Cardiovascular Disease | DX: G47.33 Obstructive sleep apnea (adult) (pediatric) (principal); I10 Essential (primary) hypertension; E66.9 Obesity, unspecified; G47.10 Hypersomnia, unspecified; J44.9 Chronic obstructive pulmonary disease, unspecified; F41.9 Anxiety disorder, unspecified; I47.1 Supraventricular tachycardia; G47.00 Insomnia, unspecified; R06.83 Snoring; I49.3 Ventricular premature depolarization; I49.1 Atrial premature depolarization; R09.02 Hypoxemia; G47.52 REM sleep behavior disorder; Z68.31 Body mass index [BMI] 31.0-31.9, adult | CPT/HCPCS: 95811 ==

== ENCOUNTER 2023-07-18 11:13 | Emergency (ER) | payer OTHER ==
[2023-07-18 13:33] LABS: SARS-CoV-2 NAA Rapid Test Not Detected (NotDetected)
[2023-07-18 14:32] LABS: #Basophils 0.1 thou/uL (0.0-0.2); #Monocytes 1.2 thou/uL (0.11-0.59); #Neutrophils 14.1 thou/uL (1.40-6.50); %Basophils 0.3 % (0.0-1.0); %Eosinophils 0.1 % (0.0-10.0); %Lymphocytes 10.4 % (21.0-51.0); %Monocytes 7.2 % (0.0-10.0); %Neutrophils 81.7 % (42.0-75.0); Hematocrit 46.9 % (36.0-47.0); Hemoglobin 16.1 g/dL (12.0-16.0); Mean Corpuscular HGB CONC 34.3 g/dL (32.0-36.0); Mean Corpuscular Hemoglobin 30.6 pg (27.0-31.0); Mean Corpuscular Volume 89.2 fl (78.0-98.0); Platelet Count 217 10x3/uL (130-400); RBC Distribution Width 12.9 % (11.5-14.5); Red Blood Cell (RBC) Count 5.26 mill/uL (4.20-5.40); White Blood Cell (WBC) Count 17.2 10x3/uL (4.8-10.8)
[2023-07-18 14:50] LABS: ALT (SGPT) 14 U/L (8-55); AST (SGOT) 18 U/L (5-34); Alkaline Phosphatase 83 U/L (40-110); Anion Gap 11 mmol/L (10-20); BUN (Urea Nitrogen) 13 mg/dL (9.8-20.1); Bilirubin, Total 0.9 mg/dL (0.2-1.2); Calc. Creatinine Clearance 0 mL/min (70-130); Calcium 9.9 mg/dL (7.8-10.44); Carbon Dioxide 30 mmol/L (23-31); Chloride 97 mmol/L (98-107); Estimated GFR 47; Globulin 2.6 g/dL (2.4-3.5); Glucose 110 mg/dL (80-115); Lipase 14 U/L (8-78); Potassium 3.8 mmol/L (3.5-5.1); Protein, Total 6.6 g/dL (5.8-8.1); Sodium 134 mmol/L (136-145)
[2023-07-18 14:53] LABS: Troponin I Less than 0.010 ng/mL (< 0.028)
[2023-07-18 15:56] LABS: Bacteria/HPF None Seen HPF (None Seen); Bilirubin Negative (Negative); Blood, Urine Negative (Negative); CAUTI Indications for Culture Dysuria,urgency,freq; Clarity Clear (Clear); Glucose, Urine (Dipstick) Normal (Negative); Ketone, Urine Negative (Negative); Leukocyte Negative Leu/uL (Negative); Nitrite Negative (Negative); Protein, Urine (Dipstick) Negative (Neg-Trace); RBC/HPF 0-3 HPF (0-3); Specific Gravity, Urine 1.009 (1.002-1.036); Squamous Epithelial 0-3 HPF (0-3); Urobilinogen Normal mg/dL (Less than 2); WBC/HPF 0-3 HPF (0-3)
[2023-07-18 16:01] LABS: Urine Culture Reflex No No
[2023-07-18] MEDS ORDERED: Sodium Chloride 0.9% 100 ML ONE (17:18)
[2023-07-18] MEDS ORDERED: Ipratropium/Albuterol 3 ML NEB ONE ×2 (17:18→17:27)
[2023-07-18] MEDS ORDERED: Dexamethasone 10 MG/ML VIAL ONE (17:18)
[2023-07-18] MEDS ORDERED: Azithromycin 250 MG TAB ONE (17:18)
[2023-07-18] MEDS ORDERED: cefTRIAXone (ROCEPHIN) 2 GM VIAL ONE (17:18)
[2023-07-18] MEDS ORDERED: Acetaminophen 500 MG TAB ONE (17:43)
== END 2023-07-18 18:50 | disposition home or self-care (01) ==
LOC: ERS 11:13
DX: J44.1 Chronic obstructive pulmonary disease with (acute) exacerbation (principal); J06.9 Acute upper respiratory infection, unspecified; F17.210 Nicotine dependence, cigarettes, uncomplicated; Z20.822 Contact with and (suspected) exposure to COVID-19
CPT/HCPCS: 0240U; 71046; 80053; 81001; 83605; 83690; 83880; 84484; 85025; 87040; 93005; 36415; 96365; 96375; J0696; J1100; J3490; J7620

== ENCOUNTER 2023-12-15 16:35 | Outpatient (CLI) | payer OTHER | END 2023-12-15 16:36 | disposition home or self-care (01) | LOC: SCSRAD 16:35 | PROVIDERS: ATTEND Family Medicine | DX: M54.50 Low back pain, unspecified (principal); R06.89 Other abnormalities of breathing; W19.XXXA Unspecified fall, initial encounter; M51.36 Other intervertebral disc degeneration, lumbar region; M51.37 Other intervertebral disc degeneration, lumbosacral region; M47.816 Spondylosis without myelopathy or radiculopathy, lumbar region; J81.1 Chronic pulmonary edema; J98.11 Atelectasis; I51.7 Cardiomegaly | CPT/HCPCS: 71046; 72100 ==

== ENCOUNTER 2024-04-14 09:21 | Emergency (ER) | payer OTHER ==
[2024-04-14] MEDS ORDERED: Ondansetron PF 4 MG/2 ML Vial ONE (09:37)
[2024-04-14] MEDS ORDERED: Morphine 4 MG/ML VIAL ONE ×2 (09:37→11:56)
== END 2024-04-14 11:41 | disposition home or self-care (01) ==
LOC: ERS 09:21
DX: S09.90XA Unspecified injury of head, initial encounter (principal); S42.352A Displaced comminuted fracture of shaft of humerus, left arm, initial encounter for closed fracture; J44.9 Chronic obstructive pulmonary disease, unspecified; F17.210 Nicotine dependence, cigarettes, uncomplicated; W18.30XA Fall on same level, unspecified, initial encounter; Y92.009 Unspecified place in unspecified non-institutional (private) residence as the place of occurrence of the external cause; Z79.01 Long term (current) use of anticoagulants
CPT/HCPCS: 70450; 72125; 73060; 73090; J2270; J2405; 96374; 96375; G0390

== ENCOUNTER 2024-04-15 08:07 | Emergency (ER) | payer OTHER ==
[2024-04-15] MEDS ORDERED: Ketorolac Tromethamine 30 MG (1 mL) VIAL ONE (09:22)
[2024-04-15] MEDS ORDERED: Ondansetron PF 4 MG/2 ML Vial ONE (09:22)
[2024-04-15] MEDS ORDERED: Morphine 4 MG/ML VIAL ONE (09:22)
== END 2024-04-15 11:05 | disposition home or self-care (01) ==
LOC: ERS 08:07
DX: S42.202A Unspecified fracture of upper end of left humerus, initial encounter for closed fracture (principal); J44.1 Chronic obstructive pulmonary disease with (acute) exacerbation; F17.210 Nicotine dependence, cigarettes, uncomplicated; W07.XXXA Fall from chair, initial encounter; Y93.89 Activity, other specified; Z55.6 Problems related to health literacy; Z75.3 Unavailability and inaccessibility of health-care facilities; Z79.01 Long term (current) use of anticoagulants; Z79.899 Other long term (current) drug therapy
CPT/HCPCS: 96374; 96375; 99285; J1885; J2270; J2405

== ENCOUNTER 2024-05-25 13:44 | Outpatient (CLI) | payer OTHER | END 2024-05-25 13:45 | disposition home or self-care (01) | LOC: BICRAD 13:44 | PROVIDERS: ATTEND Family Medicine | DX: M25.511 Pain in right shoulder (principal); M25.521 Pain in right elbow; M75.81 Other shoulder lesions, right shoulder ==

== ENCOUNTER 2024-08-03 12:28 | Outpatient (CLI) | payer OTHER | END 2024-08-03 12:29 | disposition home or self-care (01) | LOC: BICMAMMO 12:28 | PROVIDERS: ATTEND Family Medicine | DX: Z12.31 Encounter for screening mammogram for malignant neoplasm of breast (principal); Z78.0 Asymptomatic menopausal state; M85.88 Other specified disorders of bone density and structure, other site; M81.0 Age-related osteoporosis without current pathological fracture; Z85.038 Personal history of other malignant neoplasm of large intestine | CPT/HCPCS: 77067; 77080 ==

== ENCOUNTER 2025-06-08 14:05 | Outpatient (CLI) | payer OTHER | END 2025-06-08 14:06 | disposition home or self-care (01) | LOC: BICRAD 14:05 | PROVIDERS: ATTEND Family Medicine | DX: M54.50 Low back pain, unspecified (principal); R05.3 Chronic cough; M47.816 Spondylosis without myelopathy or radiculopathy, lumbar region | CPT/HCPCS: 71046; 72100 ==

== ENCOUNTER 2025-10-15 06:54 | Inpatient (IN) | payer OTHER ==
[2025-10-15 07:20] LABS: #Basophils Less than 0.03 10x3/uL (0.0-0.2); #Eosinophils Less than 0.03 10x3/uL (0.0-0.7); #Monocytes 0.76 10x3/uL (0.11-0.59); #Neutrophils 5.31 10x3/uL (1.40-6.50); %Basophils 0.3 % (0.0-1.0); %Eosinophils 0.0 % (0.0-10.0); %Lymphocytes 14.8 % (21.0-51.0); %Monocytes 10.6 % (0.0-10.0); %Neutrophils 74.2 % (42.0-75.0); Hematocrit 50.0 % (36.0-47.0); Hemoglobin 16.2 g/dL (12.0-16.0); Mean Corpuscular Hemoglobin 29.5 pg (27.0-31.0); Mean Corpuscular Volume 90.9 fL (78.0-98.0); Platelet Count 156 10x3/uL (130-400); Red Blood Cell (RBC) Count 5.50 mill/uL (4.20-5.40); White Blood Cell (WBC) Count 7.16 10x3/uL (4.8-10.8)
[2025-10-15 07:41] LABS: ALT (SGPT) 8 U/L (Less than 34); AST (SGOT) 15 U/L (11-34); Albumin 3.7 g/dL (3.1-4.5); Alkaline Phosphatase 81 U/L (40-110); Anion Gap 13 mmol/L (10-20); BUN (Urea Nitrogen) 15 mg/dL (9.8-20.1); Bilirubin, Total 0.7 mg/dL (0.3-1.2); Calc. Creatinine Clearance 0 mL/min (70-130); Calcium 9.7 mg/dL (7.8-10.44); Carbon Dioxide 26 mmol/L (23-31); Chloride 106 mmol/L (98-107); Globulin 3.3 g/dL (2.4-3.5); Glucose 119 mg/dL (83-110); Potassium 4.6 mmol/L (3.5-5.1); Sodium 140 mmol/L (136-145)
[2025-10-15 07:42] LABS: INR-International Normal Ratio 1.1; PTT 31.4 sec (22.9-36.1); Prothrombin Time 14.3 sec (12.0-14.7)
[2025-10-15] MEDS ORDERED: Acetaminophen 500 MG TAB ONE (08:00)
[2025-10-15 08:19] LABS: Lipase 22 U/L (8-78); Magnesium 1.8 mg/dL (1.6-2.6)
[2025-10-15] MEDS ORDERED: Magnesium 2 GM/50 ML BAG (IN WATER) ONE (08:22)
[2025-10-15] MEDS ORDERED: Ondansetron PF 4 MG/2 ML Vial IVP PRN (10:03)
[2025-10-15] MEDS ORDERED: Vancomycin (BATCH) 2.5 GM/500 ML BAG IVPB SCH (11:00)
[2025-10-15 12:33] LABS: Legionella Urinary Ag Negative (Negative); Strep pneumo Urine Ag NEGATIVE (NEGATIVE)
[2025-10-15 13:14] LABS: Glucose, Urine (Dipstick) Negative (Negative); Leukocyte Negative (Negative); Protein, Urine (Dipstick) Trace mg/dL (Neg-Trace); Specific Gravity, Urine Greater/Equal 1.030 (1.005-1.030)
[2025-10-15 13:31] LABS: Bacteria/HPF None Seen HPF (None Seen); CAUTI Indications for Culture Dysuria,urgency,freq; Mucous/LPF Rare LPF (<2+); RBC/HPF 0-3 HPF (0-3); WBC/HPF 0-3 HPF (0-3)
[2025-10-15 13:34] LABS: Urine Culture Reflex No No
[2025-10-15] MEDS ORDERED: ALPRAZolam 0.5 MG TAB PO PRN (15:10)
[2025-10-15 17:47] VITALS: TEMP 98.3
[2025-10-15] MEDS ORDERED: Amoxicillin/Potassium Clav 875 MG TAB ONE (18:26)
[2025-10-15] MEDS ORDERED: Linezolid 600 MG TAB PO SCH (18:30)
[2025-10-15] MEDS ORDERED: Amoxicillin/Potassium Clav 875 MG TAB PO SCH (18:30)
[2025-10-15] MEDS ORDERED: Mometasone 200 MCG/Formoterol 5 MCG 120 PUFF INHALER INH SCH (18:30)
[2025-10-15 18:46] VITALS: BP 115/71
[2025-10-15] MEDS ORDERED: Apixaban 2.5 MG TAB PO SCH (21:00)
[2025-10-16] MEDS ORDERED: Vancomycin 1 GM in Premix 1 BAG IVPB SCH (12:00)
== END 2025-10-15 18:46 | disposition home or self-care (01) | DRG 871 ==
LOC: SUATTDRO 06:54 → ERS 06:54 → ERHOLD 10:02
PROVIDERS: ADMIT Family Medicine; ATTEND Family Medicine
DX: A41.9 Sepsis, unspecified organism (principal); J15.69 Pneumonia due to other Gram-negative bacteria; J15.9 Unspecified bacterial pneumonia; J96.21 Acute and chronic respiratory failure with hypoxia; J18.9 Pneumonia, unspecified organism; J44.0 Chronic obstructive pulmonary disease with (acute) lower respiratory infection; J44.1 Chronic obstructive pulmonary disease with (acute) exacerbation; Z86.718 Personal history of other venous thrombosis and embolism; Z79.01 Long term (current) use of anticoagulants; Z66 Do not resuscitate; F17.210 Nicotine dependence, cigarettes, uncomplicated
CPT/HCPCS: 71045; 80053; 81001; 83605; 83690; 83735; 83880; 84484; 85025; 85610; 85730; 87040; 87070; 87077; 87081; 87205; 87428; 87449; 87633; 87899; 93005; 94660; 94760; 96365; 96366; 96375; J2543; J2919; J3475; J7030